=== PATIENT | male | born 1935 | race Caucasian/White ===

== ENCOUNTER 2016-07-14 07:49 | Inpatient (IN) | payer OTHER ==
[~2016-07-14] VITALS: Ht 165.1 cm; Wt 98.1 kg
[~2016-07-14 07:49] MED LIST: ATOR20TA58 PO; CELE200C PO; LISI1TAB7 PO; METO100T2 PO; OMEP20CA9 PO
[2016-07-14] MEDS ORDERED: IV NORMAL SALINE 1000ML BAG 2,790 ML IV SCH (07:58)
[2016-07-14] MEDS ORDERED: PIP/TAZO PER PHARMACY MC PRN (08:00)
[2016-07-14] MEDS ORDERED: LEVOFLOXACIN PER PHARMACY MC PRN ×2 (08:00→13:30)
[2016-07-14] MEDS ORDERED: VANCOMYCIN PER PHARMACY MC PRN (08:00)
[2016-07-14] MEDS: IV NORMAL SALINE 1000ML BAG 1,000 ML IV SCH (08:23)
[2016-07-14 08:24] LABS: BASO # 0.1 x10^3/uL (0.0-0.2); BASO % 1 % (0-3); EOS % 0 % (0-3); HEMATOCRIT 27.8 % (39.0-53.0); HEMOGLOBIN 8.7 g/dL (13.0-17.5); LYMPH # 0.7 x10^3/uL (1.0-4.8); LYMPH % 8 % (24-48); MEAN CORPUSCULAR HEMOGLOBIN 29 pg (25-35); MEAN CORPUSCULAR HGB CONC 31 g/dL (31-37); MEAN CORPUSCULAR VOLUME 93 fL (79-100); MONO % 6 % (0-9); NEUT % 85 % (31-73); PLATELET COUNT 228 x10^3/uL (140-400); RED BLOOD COUNT 2.98 x10^6/uL (4.30-5.70); RED CELL DISTRIBUTION WIDTH 15.5 % (11.5-14.5); WHITE BLOOD COUNT 8.5 x10^3/uL (4.0-11.0)
[2016-07-14] MEDS ORDERED: PIPERACILLIN/TAZOBACTAM 4.5 GM in IV NORMAL SALINE 100ML 100 ML IV ONE (08:30)
[2016-07-14 08:34] LABS: INR 1.3 (0.8-1.1); PROTHROMBIN TIME PATIENT 15.4 SEC (11.7-14.0)
[2016-07-14 08:40] LABS: CALCIUM 8.2 mg/dL (8.5-10.1); CREATININE 1.1 mg/dL (0.7-1.3); GFR 64.2; POTASSIUM 4.3 mmol/L (3.5-5.1)
--- NOTE | 2016-07-14 08:44 | RAD ---
Indication: Respiratory distress. Time of exam 0829 hours. Comparison is made with prior chest from 06/12/2016. The heart is enlarged. There appears to be a developing infiltrate in the left base and pleural fluid when compared with exam from 06/12/2016. The right lung is clear. There is no pneumothorax. Impression: Cardiomegaly with development of left basilar infiltrate and pleural fluid.
[2016-07-14 08:46] LABS: ALBUMIN 2.6 g/dL (3.4-5.0); ALBUMIN/GLOBULIN RATIO 0.6 (1.0-1.7); TOTAL BILIRUBIN 0.6 mg/dL (0.2-1.0); TOTAL PROTEIN 6.8 g/dL (6.4-8.2)
--- NOTE | 2016-07-14 08:52 | PHYS DOC ---
Past Medical History Past Medical History: Anemia, Arthritis, CHF, GERD, High Cholesterol, Hypertension, Pneumonia, Other Additional Past Medical Histor: spondylosis Past Surgical History: Other Additional Past Surgical Histo: back sx Alcohol Use: None Drug Use: None Adult General Chief Complaint Chief Complaint: SHORTNESS OF BREATH HPI HPI Patient is a 80 year old male who presents with complaint of shortness of breath. Patient was brought by ambulance from the [facility] due to respiratory distress. The patient was diagnosed 3 days ago with left lower lobe pneumonia by chest x-ray. Despite treatment, the patient has been progressively getting worse. The patient was found to have low oxygen saturation in the mid 80s on 5 L nasal cannula prior to arrival and was brought for further evaluation. Patient is to shortness breath and cough but denies chest pain. Patient has history of CHF and hypertension. Patient was noted to have fever of 102F. Patient appears in obvious respiratory distress. Review of Systems Review of Systems Constitutional: Fever [] Eyes: Denies change in visual acuity, redness, or eye pain [] HENT: Denies nasal congestion or sore throat [] Respiratory: Cough, shortness of breath [] Cardiovascular: Denies chest pain [] GI: Denies abdominal pain, nausea, vomiting, bloody stools or diarrhea [] : Denies dysuria or hematuria [] Musculoskeletal: Denies back pain or joint pain [] Integument: Denies rash or skin lesions [] Neurologic: Denies headache, focal weakness or sensory changes [] Current Medications Current Medications Current Medications Medications (Trade) Dose Ordered Sig/Miranda Start Time Stop Time Status Last Admin Dose Admin Levofloxacin/ Dextrose 150 ml @ 100 mls/hr 1X ONCE 07/14/16 08:30 07/14/16 09:59 Levofloxacin/ Dextrose 1 each 1 each PRN DAILY PRN 07/14/16 08:00 UNV Piperacillin Sod/ Tazobactam Sod (Zosyn Per Pharmacy) 1 each PRN DAILY PRN 07/14/16 08:00 UNV Piperacillin Sod/ Tazobactam Sod/ Sodium Chloride (Zosyn/Iv Sodium Chloride 0.9% 100ml) 100 ml @ 200 mls/hr 1X ONCE 07/14/16 08:30 07/14/16 08:59 DC 07/14/16 08:23 200 MLS/HR Sodium Chloride 1,000 ml @ 697.5 mls/ hr Q1H27M 07/14/16 08:03 07/14/16 11:58 07/14/16 08:23 697.5 MLS/HR Sodium Chloride (Iv Sodium Chloride 0.9% 1000ml Bag) 2,790 ml @ 697.5 mls/ hr Q4H 07/14/16 07:58 07/14/16 08:03 DC Vancomycin HCl (Vanco Per Pharmacy) 1 each 1X ONCE 07/14/16 08:00 07/14/16 08:01 UNV Vancomycin HCl 2 gm/Sodium Chloride 500 ml @ 250 mls/hr 1X ONCE 07/14/16 09:00 07/14/16 10:59 07/14/16 08:24 250 MLS/HR Allergies Allergies Allergies Coded Allergies Type Severity Reaction Last Updated Verified No Known Drug Allergies 06/16/16 No Physical Exam Physical Exam Constitutional: Alert, febrile, appears in moderate respiratory distress. [] HENT: Normocephalic, atraumatic, bilateral external ears normal, oropharynx moist, no oral exudates, nose normal. [] Eyes: PERRLA, EOMI, conjunctiva normal, no discharge. [] Neck: Normal range of motion, no tenderness, supple, no stridor. [] Cardiovascular:Heart rate regular rhythm, no murmur [] Lungs & Thorax: Severely restricted air movement bilaterally, expiratory wheezes bilaterally, rales in left lower lobe, prolonged expiratory phase [] Abdomen: Bowel sounds normal, soft, no tenderness, no masses, no pulsatile masses. [] Skin: Warm, dry, no erythema, no rash. [] Back: No tenderness, no CVA tenderness. [] Extremities: No tenderness, no cyanosis, no clubbing, ROM intact, trace pedal edema bilaterally. [] Neurologic: Alert and oriented X 3, normal motor function, normal sensory function, no focal deficits noted. [] Current Patient Data Vital Signs Vital Signs Date Time Temp Pulse Resp B/P Pulse Ox O2 Delivery O2 Flow Rate FiO2 07/14/16 08:09 95 BiPAP/CPAP 07/14/16 07:49 102.6 105 32 156/78 102.6 Lab Values Laboratory Tests Test 07/14/16 08:09 White Blood Count 8.5x10^3/uL (4.0-11.0) Red Blood Count 2.98x10^6/uL (4.30-5.70) L Hemoglobin 8.7g/dL (13.0-17.5) L Hematocrit 27.8% (39.0-53.0) L Mean Corpuscular Volume 93fL (79-100) Mean Corpuscular Hemoglobin 29pg (25-35) Mean Corpuscular Hemoglobin Concent 31g/dL (31-37) Red Cell Distribution Width 15.5% (11.5-14.5) H Platelet Count 228x10^3/uL (140-400) Neutrophils (%) (Auto) 85% (31-73) H Lymphocytes (%) (Auto) 8% (24-48) L Monocytes (%) (Auto) 6% (0-9) Eosinophils (%) (Auto) 0% (0-3) Basophils (%) (Auto) 1% (0-3) Neutrophils # (Auto) 7.2x10^3uL (1.8-7.7) Lymphocytes # (Auto) 0.7x10^3/uL (1.0-4.8) L Monocytes # (Auto) 0.5x10^3/uL (0.0-1.1) Eosinophils # (Auto) 0.0x10^3/uL (0.0-0.7) Basophils # (Auto) 0.1x10^3/uL (0.0-0.2) Prothrombin Time 15.4SEC (11.7-14.0) H Prothrombin Time INR 1.3 (0.8-1.1) H PTT 30SEC (24-38) Sodium Level 143mmol/L (136-145) Potassium Level 4.3mmol/L (3.5-5.1) Chloride Level 105mmol/L (98-107) Carbon Dioxide Level 37mmol/L (21-32) H Anion Gap 1 (6-14) L Blood Urea Nitrogen 10mg/dL (8-26) Creatinine 1.1mg/dL (0.7-1.3) Estimated GFR (Cockcroft-Gault) 64.2 BUN/Creatinine Ratio 9 (6-20) Glucose Level 140mg/dL (70-99) H Calcium Level 8.2mg/dL (8.5-10.1) L Total Bilirubin 0.6mg/dL (0.2-1.0) Aspartate Amino Transferase (AST) 36U/L (15-37) Alanine Aminotransferase (ALT) 29U/L (16-63) Alkaline Phosphatase 146U/L (46-116) H Total Protein 6.8g/dL (6.4-8.2) Albumin 2.6g/dL (3.4-5.0) L Albumin/Globulin Ratio 0.6 (1.0-1.7) L Procalcitonin Pending Laboratory Tests 07/14/16 08:09 Laboratory Tests 07/14/16 08:09 EKG EKG Interpreted by me: Heart rate 93, sinus rhythm, left bundle branch block, right axis deviation, no acute ST/T-wave abnormalities present [] Radiology/Procedures Radiology/Procedures [address] [place] [address] IMAGING REPORT Signed PATIENT: BOBBY ROSAS ACCOUNT: [id number] : 1935 LOCATION: ER AGE: 80 SEX: M EXAM STATUS: REG ER ORD. PHYSICIAN: SAIRA SANDHU MD REASON: respiratory distress PROCEDURE: PORTABLE CHEST 1V Indication: Respiratory distress. Time of exam 0829 hours. Comparison is made with prior chest from 06/12/2016. The heart is enlarged. There appears to be a developing infiltrate in the left base and pleural fluid when compared with exam from 06/12/2016. The right lung is clear. There is no pneumothorax. Impression: Cardiomegaly with development of left basilar infiltrate and pleural fluid. DICTATED and SIGNED BY: JULIO EVANS MD DATE: 07/14/16 0841 CC: SAIRA SANDHU MD; SMITHA SHETTY Jr, MD ~ [] Course & Med Decision Making Course & Med Decision Making Pertinent Labs and Imaging studies reviewed. (See chart for details) The patient was started on BiPAP in the emergency department. Patient found to have acute on chronic respiratory failure with hypoxia and hypercapnia. Patient' s chest x-ray consistent with worsening left lower lobe pneumonia. Patient started on IV Levaquin, vancomycin, and Zosyn for treatment of healthcare associated pneumonia. Patient is CODE STATUS DNR. The patient will be admitted for further management. I spoke with Dr. Mancini who accepted care patient in hospital. A consult was placed to Dr. Brothers of pulmonology to follow patient in hospital. Critical care time excluding procedures: 45 minutes Dragon Disclaimer Dragon Disclaimer This electronic medical record was generated, in whole or in part, using a voice recognition dictation system. Departure Departure Impression: Primary Impression: Acute on chronic respiratory failure Additional Impressions: Healthcare-associated pneumonia Sepsis Congestive heart failure Normocytic anemia Severe protein-calorie malnutrition Disposition: ADMITTED INPATIENT Admitting Physician: Jair Mancini Condition: GUARDED Referrals: SMITHA SHETTY Jr, MD (PCP) Problem Qualifiers Primary Impression: Acute on chronic respiratory failure Respiratory failure complication: hypoxia Qualified Code: J96.21 - Acute and chronic respiratory failure with hypoxia Additional Impressions: Sepsis Sepsis type: sepsis due to unspecified organism Qualified Code: A41.9 - Sepsis, unspecified organism Congestive heart failure Congestive heart failure type: unspecified congestive heart failure type Congestive heart failure chronicity: unspecified congestive heart failure chronicity Qualified Code: I50.9 - Heart failure, unspecified SAIRA SANDHU MD Jul 14, 2016 08:52
[2016-07-14] MEDS ORDERED: VANCOMYCIN 2 GM in IV NORMAL SALINE 500ML BAG 500 ML IV ONE (09:00)
[2016-07-14 09:10] LABS: HCO3 ABG 36 mmol/L (21-28); PO2 ABG 62 mmHg (65-108); SAT O2 ABG 89 % (92-99)
[2016-07-14] MEDS ORDERED: IV NORMAL SALINE 1000ML BAG 1,000 ML IV SCH (09:11)
[2016-07-14] MEDS ORDERED: ONDANSETRON PF 4 MG/2 ML VIAL. IV PRN ×2 (09:15→13:30)
[2016-07-14] MEDS ORDERED: ACETAMINOPHEN 325 MG TABLET. PO PRN ×2 (09:15→13:30)
[2016-07-14 09:19] LABS: FIO2 ABG 40; PCO2 ABG 82 mmHg (35-46); PH ABG 7.26 (7.35-7.45)
[2016-07-14 09:26] LABS: CKMB INDEX 1.9 % (0-4); CKMB MASS 1.4 ng/mL (0.0-3.6)
[2016-07-14 09:39] LABS: OBC FLU VALID
--- NOTE | 2016-07-14 09:50 | EKG ---
[facility] [address] [place] [address] Test Date: 2016-07-14 Test Time: 08:54:16 Pat Name: BOBBY ROSAS Department: Room: [facility] Gender: M Plexiglas Former: : 1935 Requested By: SAIRA SANDHU Order Number: [id number] Reading MD: Skip Doran Measurements Intervals [place] Rate: 93 P: -121 AK: 122 QRS: -140 QRSD: 124 T: 65 QT: 364 QTc: 455 Interpretive Statements SINUS RHYTHM LEFT BUNDLE BRANCH BLOCK Electronically Signed On 07-14-2016 15:00:24 EPIDEMIOLOGY INTERNSHIP by Skip Doran
[2016-07-14 10:29] LABS: PROCALCITONIN 0.18 ng/mL (0.00-0.10)
[2016-07-14 10:30] VITALS: BP 151/72
--- NOTE | 2016-07-14 11:24 | PDOC ---
Provider Note Provider Note dictated LATRELL PORTILLO MD Jul 14, 2016 11:24
[2016-07-14] MEDS: IPRATRPIUM/ALBUTEROL 0.5/2.5MG 3 ML NEBU. NEB SCH ×3 (11:28→20:16)
[2016-07-14] MEDS: ENOXAPARIN 40 MG/0.4 ML DISP.SYRIN. SQ SCH (11:58)
[2016-07-14 12:10] LABS: HCO3 ABG 32 mmol/L (21-28); PO2 ABG 77 mmHg (65-108); SAT O2 ABG 94 % (92-99)
[2016-07-14 12:11] LABS: FIO2 ABG 50; PCO2 ABG 67 mmHg (35-46)
--- NOTE | 2016-07-14 12:54 | PDOC1 ---
History and Physical Past Medical History Cardiovascular: HTN, Hyperlipidemia Pulmonary: No pertinent hx CENTRAL NERVOUS SYSTEM: Other GI: GERD Heme/Onc: No pertinent hx Hepatobiliary: No pertinent hx Psych: No pertinent hx Rheumatologic: No pertinent hx Infectious disease: No pertinent hx Renal/: Chronic renal failure, Other Endocrine: No pertinent hx Past Surgical History Past Surgical History: Hernia Repair, Tonsillectomy, Other Family History Family History: Other (?htn) Social History Smoke: No ALCOHOL: none Drugs: None Current Problem List Problem List Problems Medical Problems: (1) Acute on chronic respiratory failure Status: Acute (2) Congestive heart failure Status: Acute (3) Healthcare-associated pneumonia Status: Acute (4) Normocytic anemia Status: Acute (5) Sepsis Status: Acute (6) Severe protein-calorie malnutrition Status: Acute Current Medications Current Medications Current Medications Medications (Trade) Dose Ordered Sig/Miranda Start Time Stop Time Status Last Admin Dose Admin Acetaminophen (Tylenol) 650 mg PRN Q4HRS PRN 07/14/16 09:15 07/15/16 09:14 Albuterol/ Ipratropium 3 ml 3 ml RTQID 07/14/16 12:00 07/15/16 11:59 07/14/16 11:28 3 ML Enoxaparin Sodium (Lovenox 40mg Syringe) 40 mg Q24H 07/14/16 12:00 07/14/16 11:58 40 MG Levofloxacin/ Dextrose (LEVAQUIN 750mg PREMIX) 150 ml @ 100 mls/hr Q24H 07/15/16 10:00 Levofloxacin/ Dextrose 1 each 1 each PRN DAILY PRN 07/14/16 08:00 Ondansetron HCl 4 mg 4 mg PRN Q8HRS PRN 07/14/16 09:15 07/15/16 09:14 Piperacillin Sod/ Tazobactam Sod (Zosyn Per Pharmacy) 1 each PRN DAILY PRN 07/14/16 08:00 Piperacillin Sod/ Tazobactam Sod 4.5 gm/Sodium Chloride 100 ml @ 200 mls/hr 1X ONCE 07/14/16 08:30 07/14/16 08:59 DC 07/14/16 08:23 200 MLS/HR Piperacillin Sod/ Tazobactam Sod/ Sodium Chloride (Zosyn/Iv Sodium Chloride 0.9% 100ml) 100 ml @ 200 mls/hr Q6HRS 07/14/16 18:00 Sodium Chloride (Iv Sodium Chloride 0.9% 1000ml Bag) 1,000 ml @ 75 mls/hr [id number] 07/14/16 09:11 07/15/16 09:10 07/14/16 11:55 75 MLS/HR Vancomycin HCl (Vanco Per Pharmacy) 1 each PRN DAILY PRN 07/14/16 08:00 07/14/16 09:16 1 EACH Vancomycin HCl 1 each 1 each 1X ONCE 07/16/16 08:00 07/16/16 08:01 Vancomycin HCl 2 gm/Sodium Chloride 500 ml @ 250 mls/hr 1X ONCE 07/14/16 09:00 07/14/16 10:59 DC 07/14/16 08:24 250 MLS/HR Vancomycin HCl/ Sodium Chloride (Iv Sodium Chloride 0.9% 250ml) 250 ml @ 167 mls/hr Q24H 07/15/16 08:30 Allergies Allergies Allergies Coded Allergies Type Severity Reaction Last Updated Verified No Known Drug Allergies 06/16/16 No ROS Review of System CONSTITUTIONAL: fever EYES: No recent changes SKIN: bruises CARDIOVASCULAR: No chest pain, syncope, palpitations, or edema RESPIRATORY: No SOB or cough GASTROINTESTINAL: No nausea, vomiting or abdominal pain NEUROLOGICAL: No headaches or weakness ENDOCRINE: No cold or heat intolerance GENITOURINARY: No urgency or frequency of urination MUSCULOSKELETAL: No back pain or joint pain LYMPHATICS: No enlarged lymph nodes PSYCHIATRIC: No anxiety or depression Physical Exam Physical Exam GEN.: apparent distress. Alert and oriented. on BIPAP HEENT: Head is normocephalic, atraumatic NECK: Supple. NO JVD LUNGS: Clear to auscultation. clear HEART: RRR, S1, S2 present. Peripheral pulses intact ABDOMEN: Soft, nontender. Positive bowel sounds. EXTREMITIES: edema and chronic dermatis. NEUROLOGIC: Normal speech, normal tone PSYCHIATRIC: Normal affect, normal mood. SKIN: rash on back, skin breakdowns, and bruise(see chart. ) Vitals Vitals Vital Signs Date Time Temp Pulse Resp B/P Pulse Ox O2 Delivery O2 Flow Rate FiO2 07/14/16 12:51 99 BiPAP/CPAP 07/14/16 09:30 101.9 94 22 134/65 101.9 Labs Labs Laboratory Tests Test 07/14/16 08:09 07/14/16 08:31 07/14/16 08:59 07/14/16 10:30 White Blood Count 8.5x10^3/uL (4.0-11.0) Red Blood Count 2.98x10^6/uL (4.30-5.70) Hemoglobin 8.7g/dL (13.0-17.5) Hematocrit 27.8% (39.0-53.0) Mean Corpuscular Volume 93fL (79-100) Mean Corpuscular Hemoglobin 29pg (25-35) Mean Corpuscular Hemoglobin Concent 31g/dL (31-37) Red Cell Distribution Width 15.5% (11.5-14.5) Platelet Count 228x10^3/uL (140-400) Neutrophils (%) (Auto) 85% (31-73) Lymphocytes (%) (Auto) 8% (24-48) Monocytes (%) (Auto) 6% (0-9) Eosinophils (%) (Auto) 0% (0-3) Basophils (%) (Auto) 1% (0-3) Neutrophils # (Auto) 7.2x10^3uL (1.8-7.7) Lymphocytes # (Auto) 0.7x10^3/uL (1.0-4.8) Monocytes # (Auto) 0.5x10^3/uL (0.0-1.1) Eosinophils # (Auto) 0.0x10^3/uL (0.0-0.7) Basophils # (Auto) 0.1x10^3/uL (0.0-0.2) Prothrombin Time 15.4SEC (11.7-14.0) Prothromb Time International Ratio 1.3 (0.8-1.1) Activated Partial Thromboplast Time 30SEC (24-38) Sodium Level 143mmol/L (136-145) Potassium Level 4.3mmol/L (3.5-5.1) Chloride Level 105mmol/L (98-107) Carbon Dioxide Level 37mmol/L (21-32) Anion Gap 1 (6-14) Blood Urea Nitrogen 10mg/dL (8-26) Creatinine 1.1mg/dL (0.7-1.3) Estimated GFR (Cockcroft-Gault) 64.2 BUN/Creatinine Ratio 9 (6-20) Glucose Level 140mg/dL (70-99) Lactic Acid Level 1.0mmol/L (0.4-2.0) 1.0mmol/L (0.4-2.0) Calcium Level 8.2mg/dL (8.5-10.1) Total Bilirubin 0.6mg/dL (0.2-1.0) Aspartate Amino Transf (AST/SGOT) 36U/L (15-37) Alanine Aminotransferase (ALT/SGPT) 29U/L (16-63) Alkaline Phosphatase 146U/L (46-116) Creatine Kinase 75U/L (39-308) Creatine Kinase MB (Mass) 1.4ng/mL (0.0-3.6) Creatine Kinase MB Relative Index 1.9% (0-4) Total Protein 6.8g/dL (6.4-8.2) Albumin 2.6g/dL (3.4-5.0) Albumin/Globulin Ratio 0.6 (1.0-1.7) Procalcitonin 0.18ng/mL (0.00-0.10) Influenza Type A Antigen Negative (NEGATIVE) Influenza Type B Antigen Negative (NEGATIVE) O2 Saturation 89% (92-99) Arterial Blood pH 7.26 (7.35-7.45) Arterial Blood pCO2 at Patient Temp 82mmHg (35-46) Arterial Blood pO2 at Patient Temp 62mmHg (65-108) Arterial Blood HCO3 36mmol/L (21-28) Arterial Blood Base Excess 7mmol/L (-3-3) FiO2 40 Test 07/14/16 12:00 O2 Saturation 94% (92-99) Arterial Blood pH 7.30 (7.35-7.45) Arterial Blood pCO2 at Patient Temp 67mmHg (35-46) Arterial Blood pO2 at Patient Temp 77mmHg (65-108) Arterial Blood HCO3 32mmol/L (21-28) Arterial Blood Base Excess 5mmol/L (-3-3) FiO2 50 Laboratory Tests Test 07/14/16 08:09 07/14/16 08:31 07/14/16 08:59 07/14/16 10:30 White Blood Count 8.5x10^3/uL (4.0-11.0) Red Blood Count 2.98x10^6/uL (4.30-5.70) Hemoglobin 8.7g/dL (13.0-17.5) Hematocrit 27.8% (39.0-53.0) Mean Corpuscular Volume 93fL (79-100) Mean Corpuscular Hemoglobin 29pg (25-35) Mean Corpuscular Hemoglobin Concent 31g/dL (31-37) Red Cell Distribution Width 15.5% (11.5-14.5) Platelet Count 228x10^3/uL (140-400) Neutrophils (%) (Auto) 85% (31-73) Lymphocytes (%) (Auto) 8% (24-48) Monocytes (%) (Auto) 6% (0-9) Eosinophils (%) (Auto) 0% (0-3) Basophils (%) (Auto) 1% (0-3) Neutrophils # (Auto) 7.2x10^3uL (1.8-7.7) Lymphocytes # (Auto) 0.7x10^3/uL (1.0-4.8) Monocytes # (Auto) 0.5x10^3/uL (0.0-1.1) Eosinophils # (Auto) 0.0x10^3/uL (0.0-0.7) Basophils # (Auto) 0.1x10^3/uL (0.0-0.2) Prothrombin Time 15.4SEC (11.7-14.0) Prothromb Time International Ratio 1.3 (0.8-1.1) Activated Partial Thromboplast Time 30SEC (24-38) Sodium Level 143mmol/L (136-145) Potassium Level 4.3mmol/L (3.5-5.1) Chloride Level 105mmol/L (98-107) Carbon Dioxide Level 37mmol/L (21-32) Anion Gap 1 (6-14) Blood Urea Nitrogen 10mg/dL (8-26) Creatinine 1.1mg/dL (0.7-1.3) Estimated GFR (Cockcroft-Gault) 64.2 BUN/Creatinine Ratio 9 (6-20) Glucose Level 140mg/dL (70-99) Lactic Acid Level 1.0mmol/L (0.4-2.0) 1.0mmol/L (0.4-2.0) Calcium Level 8.2mg/dL (8.5-10.1) Total Bilirubin 0.6mg/dL (0.2-1.0) Aspartate Amino Transf (AST/SGOT) 36U/L (15-37) Alanine Aminotransferase (ALT/SGPT) 29U/L (16-63) Alkaline Phosphatase 146U/L (46-116) Creatine Kinase 75U/L (39-308) Creatine Kinase MB (Mass) 1.4ng/mL (0.0-3.6) Creatine Kinase MB Relative Index 1.9% (0-4) Total Protein 6.8g/dL (6.4-8.2) Albumin 2.6g/dL (3.4-5.0) Albumin/Globulin Ratio 0.6 (1.0-1.7) Procalcitonin 0.18ng/mL (0.00-0.10) Influenza Type A Antigen Negative (NEGATIVE) Influenza Type B Antigen Negative (NEGATIVE) O2 Saturation 89% (92-99) Arterial Blood pH 7.26 (7.35-7.45) Arterial Blood pCO2 at Patient Temp 82mmHg (35-46) Arterial Blood pO2 at Patient Temp 62mmHg (65-108) Arterial Blood HCO3 36mmol/L (21-28) Arterial Blood Base Excess 7mmol/L (-3-3) FiO2 40 Test 07/14/16 12:00 O2 Saturation 94% (92-99) Arterial Blood pH 7.30 (7.35-7.45) Arterial Blood pCO2 at Patient Temp 67mmHg (35-46) Arterial Blood pO2 at Patient Temp 77mmHg (65-108) Arterial Blood HCO3 32mmol/L (21-28) Arterial Blood Base Excess 5mmol/L (-3-3) FiO2 50 VTE Prophylaxis Ordered VTE Prophylaxis Devices: Yes VTE Pharmacological Prophylaxi: Yes SANDY RAYA MD Jul 14, 2016 12:53
[2016-07-14] MEDS ORDERED: PIPERACILLIN/TAZOBACTAM 3.375 GM in IV NORMAL SALINE 50ML 50 ML IV SCH (13:30)
[2016-07-14] MEDS ORDERED: hydrALAZINE 20 MG/ML VIAL. IVP PRN (13:30)
[2016-07-14] MEDS ORDERED: HYDROCODONE/APAP 5/325MG TABLET. PO PRN (13:30)
--- NOTE | 2016-07-14 13:43 | CONS ---
DATE OF CONSULTATION: ATTENDING PHYSICIAN: Dr. Mancini. REASON FOR CONSULTATION: Respiratory failure. HISTORY OF PRESENT ILLNESS: The patient is an 80-year-old male who was brought in from [facility] due to respiratory distress. The patient was at that facility after recovering from the right hip surgery. He started to have cough with shortness of breath. Cough has been present for about more than a week. He was found to have low oxygen saturations in the mid 80s on 5 liters nasal cannula. He had a fever of 102. I reviewed the patient's chest x-ray and it revealed left lung infiltrate with effusion. This was a new finding compared to his films from May. His ABGs were abnormal with a pH of 7.26, pCO2 of 82 and a pO2 of 62 on 40% FiO2. He has been placed on BiPAP. He is tolerating it well and appears to be very comfortable. Influenza serology is negative. The daughter is at the bedside and gave much of the history. No headaches. No nausea, vomiting or diarrhea. PAST MEDICAL HISTORY: History of anemia, arthritis, CHF, GERD, dyslipidemia, hypertension, pneumonia and spondylolysis. PAST SURGICAL HISTORY: Back surgeries. ALLERGIES: None. CURRENT MEDICATIONS: Reviewed as listed in the MRAD including broad-spectrum antibiotics. REVIEW OF SYSTEMS: Twelve-point system obtained. Pertinent positives discussed in my history of present illness, otherwise noncontributory. All systems that were negative were reviewed as well. SOCIAL HISTORY: Quit 30 years ago, smoked probably for 25-30 years. PHYSICAL EXAMINATION: GENERAL: He is awake, on BiPAP, no obvious distress. VITAL SIGNS: T-max of 101.9, blood pressure 134/65, pulse ox 96% on 40% FiO2 with BiPAP. HEENT: Sclerae nonicteric. NECK: Supple. LUNGS: With diminished breath sounds on the left. CARDIOVASCULAR: Regular rate. ABDOMEN: Obese. EXTREMITIES: With venous stasis in the right lower extremity. LABORATORY DATA: Reviewed. White cell count 8.5, hemoglobin 8.7, BUN 10, creatinine 1.1. IMPRESSION: 1. Acute hypoxic and hypercapnic respiratory failure secondary to healthcare-associated pneumonia involving the left lung. 2. Possible underlying chronic obstructive pulmonary disease. 3. Recent hip surgery. 4. Influenza screen negative. 5. Abnormal arterial blood gases consistent with [id number] hypercapnia. RECOMMENDATIONS: 1. Continue with present BiPAP. 2. Follow ABGs and make necessary adjustments. 3. We will continue broad-spectrum antibiotics. 4. Follow blood cultures. 5. Noncontrast CT chest once off the BiPAP. 6. Continue with DuoNebs. 7. Lovenox for DVT prophylaxis. 8. Discussed with the patient's daughter and RN. We will follow along with you. LATRELL PORTILLO MD DR: KUMAR/alma JOB#: [id number] / [id number] MARY
[2016-07-14] MEDS ORDERED: ENOXAPARIN 40 MG/0.4 ML DISP.SYRIN. SQ SCH (14:00)
[2016-07-14] MEDS: CELECOXIB 200 MG CAPSULE PO SCH (14:00)
[2016-07-14] MEDS: LISINOPRIL 20 MG TABLET PO SCH (14:00)
[2016-07-14 15:04] VITALS: BP 118/57
--- NOTE | 2016-07-14 15:13 | HP ---
ADMIT DATE: 07/14/2016 CHIEF COMPLAINT: Shortness of breath. HISTORY OF PRESENT ILLNESS: An 80-year-old male patient with recent history of right hip arthroplasty. Later, the patient was transferred to rehab facility, [facility]. Today, the patient was transferred to the hospital for fever and shortness of breath. Recently he was diagnosed with left lower lobe pneumonia and he was started on treatment; however, he did not show any improvement and the patient was transferred here. At the time of presentation, the patient was in mid 80s and requiring 5-6 liters of oxygen. Initial ABG showed hypercapnic and hypoxic respiratory failure. At the time of my examination, the patient is on BiPAP with daughter at bedside. Most of the history obtained from the daughter. He is having some fevers and dry cough. Denies any other acute changes. PAST MEDICAL HISTORY: Please see my electronic H and P. REVIEW OF SYSTEMS AND PHYSICAL EXAMINATION: Please see my electronic H and P. LABORATORY FINDINGS: Sodium is 143, potassium 4.3, chloride is 105, carbon dioxide is , anion gap is 1, BUN is 10, creatinine is 1.1, GFR is 64.2, BUN and creatinine ratio 9 and lactic acid 1, calcium is 8.2. Procalcitonin 0.18. Influenzae A and B negative. Hematology: WBC is 8.5, hemoglobin is 8.7, MCV is 93, platelets is 228. Blood gases, pH is 7.26, pCO2 is 82, pO2 is 62, FiO2 40%. ASSESSMENT AND PLAN: 1. Acute hypoxic, hypercapnic respiratory failure. 2. Healthcare associated pneumonia. 3. Suspected sepsis. 4. Normocytic anemia. 5. Anemia. 6. Recent hip replacement. 7. Hypertension. 8. Prior history of questionable atrial fibrillation. 9. Severe arthritis. PLAN: 1. The patient has been admitted to step down unit and he was started on BiPAP. Repeat ABG showed improvement. Pulmonology has been consulted. 2. He was initiated on broad spectrum antibiotics of vancomycin, Zosyn and Levaquin, pharmacy to dose the Levaquin and vancomycin according to renal functions. 3. The patient had skin changes due to warfarin in the past. We will start him on the Lovenox for now. 4. Monitor intake and output. 5. If the patient's symptoms did not get better, maybe we will order an echocardiogram. 6. Home medications reviewed and reconciled. 7. Supportive care. 8. Supplemental oxygen to keep saturations around 92%. 10. Plan has been explained to daughter who is at bedside. SANDY RAYA MD DR: AVINASH/alma JOB#: [id number] / [id number] MARY
[2016-07-14 15:52] LABS: HCO3 ABG 30 mmol/L (21-28); PCO2 ABG 50 mmHg (35-46); PH ABG 7.39 (7.35-7.45); PO2 ABG 87 mmHg (65-108); SAT O2 ABG 96 % (92-99)
[2016-07-14 15:53] LABS: FIO2 ABG 45
[2016-07-14] MEDS: PANTOPRAZOLE 40 MG TABLET. PO SCH (16:30)
[2016-07-14] MEDS: PIPERACILLIN/TAZOBACTAM 4.5 GM in IV NORMAL SALINE 100ML 100 ML IV SCH ×2 (18:48→23:24)
[2016-07-14 19:48] VITALS: BP 113/61
[2016-07-14] MEDS: METOPROLOL TART IMMED RELEASE 50 MG TABLET PO SCH (21:13)
[2016-07-14] MEDS: ATORVASTATIN CALCIUM 20 MG TABLET PO SCH (21:13)
[2016-07-14 22:53] VITALS: BP 119/62
[2016-07-15] VITALS (18 sets, daily range): BP systolic 92–163; BP diastolic 54–75
[2016-07-15] MEDS: IV NORMAL SALINE 1000ML BAG 1,000 ML IV SCH ×4 (02:50→22:00)
[2016-07-15] MEDS: PIPERACILLIN/TAZOBACTAM 4.5 GM in IV NORMAL SALINE 100ML 100 ML IV SCH ×3 (05:42→18:13)
[2016-07-15 05:44] LABS: BASO % 0 % (0-3); EOS % 0 % (0-3); HEMOGLOBIN 8.4 g/dL (13.0-17.5); LYMPH # 1.6 x10^3/uL (1.0-4.8); LYMPH % 18 % (24-48); MEAN CORPUSCULAR HEMOGLOBIN 29 pg (25-35); MEAN CORPUSCULAR HGB CONC 31 g/dL (31-37); MEAN CORPUSCULAR VOLUME 94 fL (79-100); MONO % 11 % (0-9); NEUT % 71 % (31-73); PLATELET COUNT 214 x10^3/uL (140-400); RED BLOOD COUNT 2.87 x10^6/uL (4.30-5.70); RED CELL DISTRIBUTION WIDTH 16.3 % (11.5-14.5); WHITE BLOOD COUNT 8.8 x10^3/uL (4.0-11.0)
[2016-07-15 05:54] LABS: CALCIUM 8.2 mg/dL (8.5-10.1); CREATININE 1.5 mg/dL (0.7-1.3); GFR 44.9; POTASSIUM 4.7 mmol/L (3.5-5.1)
[2016-07-15] MEDS: IPRATRPIUM/ALBUTEROL 0.5/2.5MG 3 ML NEBU. NEB SCH ×2 (05:54→11:13)
--- NOTE | 2016-07-15 07:40 | RAD ---
Indication: Left lung pneumonia. Time of exam 0727 hours. Comparison is made with prior chest from one day earlier. The heart is enlarged. There continues to be some increased density in the left base partially obscuring the left hemidiaphragm. Central congestive changes are similar to perhaps slightly worse on today's study. Upper lung gonzalez are clear. There is no pneumothorax Impression: Worsening congestive changes with continued left basilar consolidation and pleural fluid.
[2016-07-15] MEDS: VANCOMYCIN PER PHARMACY MC PRN (07:50)
[2016-07-15] MEDS: LISINOPRIL 20 MG TABLET PO SCH (08:10)
[2016-07-15] MEDS: CELECOXIB 200 MG CAPSULE PO SCH (08:10)
[2016-07-15] MEDS: PANTOPRAZOLE 40 MG TABLET. PO SCH (08:10)
[2016-07-15] MEDS: METOPROLOL TART IMMED RELEASE 50 MG TABLET PO SCH ×2 (08:10→22:00)
[2016-07-15] MEDS: VANCOMYCIN 1.25 GM in IV NORMAL SALINE 250ML 250 ML IV SCH (08:11)
[2016-07-15] MEDS: ALBUTEROL SULFATE 2.5 MG/3 ML NEBU. NEB PRN ×3 (09:15→19:26)
[2016-07-15 09:32] LABS: HCO3 ABG 32 mmol/L (21-28); PH ABG 7.25 (7.35-7.45); PO2 ABG 71 mmHg (65-108); SAT O2 ABG 93 % (92-99)
[2016-07-15 09:35] LABS: FIO2 ABG 40%; PCO2 ABG 75 mmHg (35-46)
--- NOTE | 2016-07-15 10:17 | RAD ---
Indication: Respiratory distress. Axial imaging through the chest was performed without contrast. Comparison is made with recent chest radiograph from earlier the same day. No axillary lymphadenopathy is detected. Hilar and mediastinal evaluation is limited without intravenous contrast. No pericardial effusion is identified. There are moderate-sized bilateral pleural effusions, slightly larger on the left. Pleural fluid on the right layers dependently to a thickness of approximately 5 cm. Pleural fluid on the left layers to a thickness of approximately 8.5 cm. Parenchymal evaluation does show some mild atelectasis or infiltrate in the posterior aspect of the left upper lobe. There are areas of airspace consolidation and air bronchograms within bilateral lower lobes. Perihilar infiltrate is seen. The upper abdomen is unremarkable. Impression: Moderate bilateral pleural effusions and bilateral pulmonary infiltrates suggestive of pneumonia. PQRS Compliance Statement: One or more of the following individualized dose reduction techniques were utilized for this examination: 1. Automated exposure control 2. Adjustment of the mA and/or kV according to patient size 3. Use of iterative reconstruction technique
--- NOTE | 2016-07-15 10:33 | PDOC ---
PULMONARY PROGRESS NOTES Subjective Pt did not wear BIPAP last night Had hypoxia/ increase PCO2 back on BIPAP Vitals Vital Signs Date Time Temp Pulse Resp B/P Pulse Ox O2 Delivery O2 Flow Rate FiO2 07/15/16 08:10 111 163/68 07/15/16 08:00 Venturi Mask 10.0 07/15/16 07:00 28 88 07/15/16 03:59 100.0 100.0 General: Alert, No acute distress Lungs: Other (decrease bs) Abdomen: Soft Neuro Exam: Alert Extremities: Other (trace edema) Labs Laboratory Tests Test 07/14/16 08:09 07/14/16 08:31 07/14/16 08:59 07/14/16 10:30 White Blood Count 8.5x10^3/uL (4.0-11.0) Red Blood Count 2.98x10^6/uL (4.30-5.70) Hemoglobin 8.7g/dL (13.0-17.5) Hematocrit 27.8% (39.0-53.0) Mean Corpuscular Volume 93fL (79-100) Mean Corpuscular Hemoglobin 29pg (25-35) Mean Corpuscular Hemoglobin Concent 31g/dL (31-37) Red Cell Distribution Width 15.5% (11.5-14.5) Platelet Count 228x10^3/uL (140-400) Neutrophils (%) (Auto) 85% (31-73) Lymphocytes (%) (Auto) 8% (24-48) Monocytes (%) (Auto) 6% (0-9) Eosinophils (%) (Auto) 0% (0-3) Basophils (%) (Auto) 1% (0-3) Neutrophils # (Auto) 7.2x10^3uL (1.8-7.7) Lymphocytes # (Auto) 0.7x10^3/uL (1.0-4.8) Monocytes # (Auto) 0.5x10^3/uL (0.0-1.1) Eosinophils # (Auto) 0.0x10^3/uL (0.0-0.7) Basophils # (Auto) 0.1x10^3/uL (0.0-0.2) Prothrombin Time 15.4SEC (11.7-14.0) Prothromb Time International Ratio 1.3 (0.8-1.1) Activated Partial Thromboplast Time 30SEC (24-38) Sodium Level 143mmol/L (136-145) Potassium Level 4.3mmol/L (3.5-5.1) Chloride Level 105mmol/L (98-107) Carbon Dioxide Level 37mmol/L (21-32) Anion Gap 1 (6-14) Blood Urea Nitrogen 10mg/dL (8-26) Creatinine 1.1mg/dL (0.7-1.3) Estimated GFR (Cockcroft-Gault) 64.2 BUN/Creatinine Ratio 9 (6-20) Glucose Level 140mg/dL (70-99) Lactic Acid Level 1.0mmol/L (0.4-2.0) 1.0mmol/L (0.4-2.0) Calcium Level 8.2mg/dL (8.5-10.1) Total Bilirubin 0.6mg/dL (0.2-1.0) Aspartate Amino Transf (AST/SGOT) 36U/L (15-37) Alanine Aminotransferase (ALT/SGPT) 29U/L (16-63) Alkaline Phosphatase 146U/L (46-116) Creatine Kinase 75U/L (39-308) Creatine Kinase MB (Mass) 1.4ng/mL (0.0-3.6) Creatine Kinase MB Relative Index 1.9% (0-4) Total Protein 6.8g/dL (6.4-8.2) Albumin 2.6g/dL (3.4-5.0) Albumin/Globulin Ratio 0.6 (1.0-1.7) Procalcitonin 0.18ng/mL (0.00-0.10) Influenza Type A Antigen Negative (NEGATIVE) Influenza Type B Antigen Negative (NEGATIVE) O2 Saturation 89% (92-99) Arterial Blood pH 7.26 (7.35-7.45) Arterial Blood pCO2 at Patient Temp 82mmHg (35-46) Arterial Blood pO2 at Patient Temp 62mmHg (65-108) Arterial Blood HCO3 36mmol/L (21-28) Arterial Blood Base Excess 7mmol/L (-3-3) FiO2 40 Test 07/14/16 12:00 07/14/16 15:00 07/15/16 04:30 07/15/16 09:19 O2 Saturation 94% (92-99) 96% (92-99) 93% (92-99) Arterial Blood pH 7.30 (7.35-7.45) 7.39 (7.35-7.45) 7.25 (7.35-7.45) Arterial Blood pCO2 at Patient Temp 67mmHg (35-46) 50mmHg (35-46) 75mmHg (35-46) Arterial Blood pO2 at Patient Temp 77mmHg (65-108) 87mmHg (65-108) 71mmHg (65-108) Arterial Blood HCO3 32mmol/L (21-28) 30mmol/L (21-28) 32mmol/L (21-28) Arterial Blood Base Excess 5mmol/L (-3-3) 5mmol/L (-3-3) 3mmol/L (-3-3) FiO2 50 45 40% White Blood Count 8.8x10^3/uL (4.0-11.0) Red Blood Count 2.87x10^6/uL (4.30-5.70) Hemoglobin 8.4g/dL (13.0-17.5) Hematocrit 27.0% (39.0-53.0) Mean Corpuscular Volume 94fL (79-100) Mean Corpuscular Hemoglobin 29pg (25-35) Mean Corpuscular Hemoglobin Concent 31g/dL (31-37) Red Cell Distribution Width 16.3% (11.5-14.5) Platelet Count 214x10^3/uL (140-400) Neutrophils (%) (Auto) 71% (31-73) Lymphocytes (%) (Auto) 18% (24-48) Monocytes (%) (Auto) 11% (0-9) Eosinophils (%) (Auto) 0% (0-3) Basophils (%) (Auto) 0% (0-3) Neutrophils # (Auto) 6.2x10^3uL (1.8-7.7) Lymphocytes # (Auto) 1.6x10^3/uL (1.0-4.8) Monocytes # (Auto) 0.9x10^3/uL (0.0-1.1) Eosinophils # (Auto) 0.0x10^3/uL (0.0-0.7) Basophils # (Auto) 0.0x10^3/uL (0.0-0.2) Sodium Level 146mmol/L (136-145) Potassium Level 4.7mmol/L (3.5-5.1) Chloride Level 107mmol/L (98-107) Carbon Dioxide Level 34mmol/L (21-32) Anion Gap 5 (6-14) Blood Urea Nitrogen 19mg/dL (8-26) Creatinine 1.5mg/dL (0.7-1.3) Estimated GFR (Cockcroft-Gault) 44.9 Glucose Level 134mg/dL (70-99) Calcium Level 8.2mg/dL (8.5-10.1) Laboratory Tests Test 07/14/16 10:30 07/14/16 12:00 07/14/16 15:00 07/15/16 04:30 Lactic Acid Level 1.0mmol/L (0.4-2.0) O2 Saturation 94% (92-99) 96% (92-99) Arterial Blood pH 7.30 (7.35-7.45) 7.39 (7.35-7.45) Arterial Blood pCO2 at Patient Temp 67mmHg (35-46) 50mmHg (35-46) Arterial Blood pO2 at Patient Temp 77mmHg (65-108) 87mmHg (65-108) Arterial Blood HCO3 32mmol/L (21-28) 30mmol/L (21-28) Arterial Blood Base Excess 5mmol/L (-3-3) 5mmol/L (-3-3) FiO2 50 45 White Blood Count 8.8x10^3/uL (4.0-11.0) Red Blood Count 2.87x10^6/uL (4.30-5.70) Hemoglobin 8.4g/dL (13.0-17.5) Hematocrit 27.0% (39.0-53.0) Mean Corpuscular Volume 94fL (79-100) Mean Corpuscular Hemoglobin 29pg (25-35) Mean Corpuscular Hemoglobin Concent 31g/dL (31-37) Red Cell Distribution Width 16.3% (11.5-14.5) Platelet Count 214x10^3/uL (140-400) Neutrophils (%) (Auto) 71% (31-73) Lymphocytes (%) (Auto) 18% (24-48) Monocytes (%) (Auto) 11% (0-9) Eosinophils (%) (Auto) 0% (0-3) Basophils (%) (Auto) 0% (0-3) Neutrophils # (Auto) 6.2x10^3uL (1.8-7.7) Lymphocytes # (Auto) 1.6x10^3/uL (1.0-4.8) Monocytes # (Auto) 0.9x10^3/uL (0.0-1.1) Eosinophils # (Auto) 0.0x10^3/uL (0.0-0.7) Basophils # (Auto) 0.0x10^3/uL (0.0-0.2) Sodium Level 146mmol/L (136-145) Potassium Level 4.7mmol/L (3.5-5.1) Chloride Level 107mmol/L (98-107) Carbon Dioxide Level 34mmol/L (21-32) Anion Gap 5 (6-14) Blood Urea Nitrogen 19mg/dL (8-26) Creatinine 1.5mg/dL (0.7-1.3) Estimated GFR (Cockcroft-Gault) 44.9 Glucose Level 134mg/dL (70-99) Calcium Level 8.2mg/dL (8.5-10.1) Test 07/15/16 09:19 O2 Saturation 93% (92-99) Arterial Blood pH 7.25 (7.35-7.45) Arterial Blood pCO2 at Patient Temp 75mmHg (35-46) Arterial Blood pO2 at Patient Temp 71mmHg (65-108) Arterial Blood HCO3 32mmol/L (21-28) Arterial Blood Base Excess 3mmol/L (-3-3) FiO2 40% Medications Active Scripts Medications Dose Route/Sig Days Date Category Atorvastatin Calcium 20 Mg Tablet 20 Mg PO HS 06/12/16 Reported Omeprazole 20 Mg Capsule.dr 1 Cap PO DAILY 06/12/16 Reported Celebrex (Celecoxib) 200 Mg Capsule 1 Cap PO DAILY 06/12/16 Reported Lisinopril-Hctz 20-25 Mg Tab (Lisinopril/Hydrochlorothiazide) 1 Each Tablet 1 Tab PO BID 06/12/16 Reported Metoprolol Tartrate 100 Mg Tablet 1 Tab PO BID 06/12/16 Reported Impression . 1. Acute hypoxic and hypercapnic respiratory failure secondary to healthcare-associated pneumonia involving the left lung./ pleural effusion 2. Possible underlying chronic obstructive pulmonary disease. 3. Recent hip surgery. 4. Influenza screen negative. 5. Abnormal arterial blood gases consistent with [id number] hypercapnia. 6. Ct chest reviewed/ moderate left effusion/ small right, suspect due to low oncotic pressure Plan . 1. Continue with present BiPAP. 2. Follow ABGs and make necessary adjustments. 3. We will continue broad-spectrum antibiotics. 4. Follow blood cultures. 5. Noncontrast CT chest reviewed. Would benefit from left thoracentesis. d/w pt and daughter, both agrees 6. Continue with DuoNebs. 7. hold Lovenox / coumadin today 8. Discussed RN. LATRELL PORTILLO MD Jul 15, 2016 10:33
[2016-07-15] MEDS ORDERED: FUROSEMIDE 40 MG/4 ML VIAL IVP ONE (11:00)
[2016-07-15 11:08] LABS: INR 1.3 (0.8-1.1); PROTHROMBIN TIME PATIENT 15.4 SEC (11.7-14.0)
[2016-07-15] MEDS: ENOXAPARIN 40 MG/0.4 ML DISP.SYRIN. SQ SCH (12:00)
--- NOTE | 2016-07-15 12:00 | PDOC ---
PROGRESS NOTES Chief Complaint Chief Complaint 1. Acute hypoxic and hypercapnic respiratory failure 2. COPD, w. acute bronchitis 3. Recent hip surgery. hip pain 4. likely chronic hypercapnic failure 5. moderate left effusion History of Present Illness History of Present Illness cont Bipap thoracenteiss today MVI and vit c per nutrition he reports feeling improved Vitals Vitals Vital Signs Date Time Temp Pulse Resp B/P Pulse Ox O2 Delivery O2 Flow Rate FiO2 07/15/16 11:18 100 BiPAP/CPAP 07/15/16 11:00 98.2 84 29 92/54 10.0 98.2 Physical Exam General: Alert, Cooperative, mild distress Heart: Regular rate, No murmurs Lungs: Other (decrease bs) Extremities: No clubbing, No cyanosis Skin: No rashes, No significant lesion Labs LABS Laboratory Tests Test 07/14/16 12:00 07/14/16 15:00 07/15/16 04:30 07/15/16 09:19 O2 Saturation 94% (92-99) 96% (92-99) 93% (92-99) Arterial Blood pH 7.30 (7.35-7.45) 7.39 (7.35-7.45) 7.25 (7.35-7.45) Arterial Blood pCO2 at Patient Temp 67mmHg (35-46) 50mmHg (35-46) 75mmHg (35-46) Arterial Blood pO2 at Patient Temp 77mmHg (65-108) 87mmHg (65-108) 71mmHg (65-108) Arterial Blood HCO3 32mmol/L (21-28) 30mmol/L (21-28) 32mmol/L (21-28) Arterial Blood Base Excess 5mmol/L (-3-3) 5mmol/L (-3-3) 3mmol/L (-3-3) FiO2 50 45 40% White Blood Count 8.8x10^3/uL (4.0-11.0) Red Blood Count 2.87x10^6/uL (4.30-5.70) Hemoglobin 8.4g/dL (13.0-17.5) Hematocrit 27.0% (39.0-53.0) Mean Corpuscular Volume 94fL (79-100) Mean Corpuscular Hemoglobin 29pg (25-35) Mean Corpuscular Hemoglobin Concent 31g/dL (31-37) Red Cell Distribution Width 16.3% (11.5-14.5) Platelet Count 214x10^3/uL (140-400) Neutrophils (%) (Auto) 71% (31-73) Lymphocytes (%) (Auto) 18% (24-48) Monocytes (%) (Auto) 11% (0-9) Eosinophils (%) (Auto) 0% (0-3) Basophils (%) (Auto) 0% (0-3) Neutrophils # (Auto) 6.2x10^3uL (1.8-7.7) Lymphocytes # (Auto) 1.6x10^3/uL (1.0-4.8) Monocytes # (Auto) 0.9x10^3/uL (0.0-1.1) Eosinophils # (Auto) 0.0x10^3/uL (0.0-0.7) Basophils # (Auto) 0.0x10^3/uL (0.0-0.2) Sodium Level 146mmol/L (136-145) Potassium Level 4.7mmol/L (3.5-5.1) Chloride Level 107mmol/L (98-107) Carbon Dioxide Level 34mmol/L (21-32) Anion Gap 5 (6-14) Blood Urea Nitrogen 19mg/dL (8-26) Creatinine 1.5mg/dL (0.7-1.3) Estimated GFR (Cockcroft-Gault) 44.9 Glucose Level 134mg/dL (70-99) Calcium Level 8.2mg/dL (8.5-10.1) Assessment and Plan Assessmemt and Plan Problems Medical Problems: (1) Acute on chronic respiratory failure Status: Acute (2) Congestive heart failure Status: Acute (3) Healthcare-associated pneumonia Status: Acute (4) Normocytic anemia Status: Acute (5) Sepsis Status: Acute (6) Severe protein-calorie malnutrition Status: Acute Problems: Comment Review of Relevant I have reviewed the following items miguel ángel (where applicable) has been applied. Labs Laboratory Tests Test 07/14/16 08:09 07/14/16 08:31 07/14/16 08:59 07/14/16 10:30 White Blood Count 8.5x10^3/uL (4.0-11.0) Red Blood Count 2.98x10^6/uL (4.30-5.70) Hemoglobin 8.7g/dL (13.0-17.5) Hematocrit 27.8% (39.0-53.0) Mean Corpuscular Volume 93fL (79-100) Mean Corpuscular Hemoglobin 29pg (25-35) Mean Corpuscular Hemoglobin Concent 31g/dL (31-37) Red Cell Distribution Width 15.5% (11.5-14.5) Platelet Count 228x10^3/uL (140-400) Neutrophils (%) (Auto) 85% (31-73) Lymphocytes (%) (Auto) 8% (24-48) Monocytes (%) (Auto) 6% (0-9) Eosinophils (%) (Auto) 0% (0-3) Basophils (%) (Auto) 1% (0-3) Neutrophils # (Auto) 7.2x10^3uL (1.8-7.7) Lymphocytes # (Auto) 0.7x10^3/uL (1.0-4.8) Monocytes # (Auto) 0.5x10^3/uL (0.0-1.1) Eosinophils # (Auto) 0.0x10^3/uL (0.0-0.7) Basophils # (Auto) 0.1x10^3/uL (0.0-0.2) Prothrombin Time 15.4SEC (11.7-14.0) Prothromb Time International Ratio 1.3 (0.8-1.1) Activated Partial Thromboplast Time 30SEC (24-38) Sodium Level 143mmol/L (136-145) Potassium Level 4.3mmol/L (3.5-5.1) Chloride Level 105mmol/L (98-107) Carbon Dioxide Level 37mmol/L (21-32) Anion Gap 1 (6-14) Blood Urea Nitrogen 10mg/dL (8-26) Creatinine 1.1mg/dL (0.7-1.3) Estimated GFR (Cockcroft-Gault) 64.2 BUN/Creatinine Ratio 9 (6-20) Glucose Level 140mg/dL (70-99) Lactic Acid Level 1.0mmol/L (0.4-2.0) 1.0mmol/L (0.4-2.0) Calcium Level 8.2mg/dL (8.5-10.1) Total Bilirubin 0.6mg/dL (0.2-1.0) Aspartate Amino Transf (AST/SGOT) 36U/L (15-37) Alanine Aminotransferase (ALT/SGPT) 29U/L (16-63) Alkaline Phosphatase 146U/L (46-116) Creatine Kinase 75U/L (39-308) Creatine Kinase MB (Mass) 1.4ng/mL (0.0-3.6) Creatine Kinase MB Relative Index 1.9% (0-4) Total Protein 6.8g/dL (6.4-8.2) Albumin 2.6g/dL (3.4-5.0) Albumin/Globulin Ratio 0.6 (1.0-1.7) Procalcitonin 0.18ng/mL (0.00-0.10) Influenza Type A Antigen Negative (NEGATIVE) Influenza Type B Antigen Negative (NEGATIVE) O2 Saturation 89% (92-99) Arterial Blood pH 7.26 (7.35-7.45) Arterial Blood pCO2 at Patient Temp 82mmHg (35-46) Arterial Blood pO2 at Patient Temp 62mmHg (65-108) Arterial Blood HCO3 36mmol/L (21-28) Arterial Blood Base Excess 7mmol/L (-3-3) FiO2 40 Test 07/14/16 12:00 07/14/16 15:00 07/15/16 04:30 07/15/16 09:19 O2 Saturation 94% (92-99) 96% (92-99) 93% (92-99) Arterial Blood pH 7.30 (7.35-7.45) 7.39 (7.35-7.45) 7.25 (7.35-7.45) Arterial Blood pCO2 at Patient Temp 67mmHg (35-46) 50mmHg (35-46) 75mmHg (35-46) Arterial Blood pO2 at Patient Temp 77mmHg (65-108) 87mmHg (65-108) 71mmHg (65-108) Arterial Blood HCO3 32mmol/L (21-28) 30mmol/L (21-28) 32mmol/L (21-28) Arterial Blood Base Excess 5mmol/L (-3-3) 5mmol/L (-3-3) 3mmol/L (-3-3) FiO2 50 45 40% White Blood Count 8.8x10^3/uL (4.0-11.0) Red Blood Count 2.87x10^6/uL (4.30-5.70) Hemoglobin 8.4g/dL (13.0-17.5) Hematocrit 27.0% (39.0-53.0) Mean Corpuscular Volume 94fL (79-100) Mean Corpuscular Hemoglobin 29pg (25-35) Mean Corpuscular Hemoglobin Concent 31g/dL (31-37) Red Cell Distribution Width 16.3% (11.5-14.5) Platelet Count 214x10^3/uL (140-400) Neutrophils (%) (Auto) 71% (31-73) Lymphocytes (%) (Auto) 18% (24-48) Monocytes (%) (Auto) 11% (0-9) Eosinophils (%) (Auto) 0% (0-3) Basophils (%) (Auto) 0% (0-3) Neutrophils # (Auto) 6.2x10^3uL (1.8-7.7) Lymphocytes # (Auto) 1.6x10^3/uL (1.0-4.8) Monocytes # (Auto) 0.9x10^3/uL (0.0-1.1) Eosinophils # (Auto) 0.0x10^3/uL (0.0-0.7) Basophils # (Auto) 0.0x10^3/uL (0.0-0.2) Sodium Level 146mmol/L (136-145) Potassium Level 4.7mmol/L (3.5-5.1) Chloride Level 107mmol/L (98-107) Carbon Dioxide Level 34mmol/L (21-32) Anion Gap 5 (6-14) Blood Urea Nitrogen 19mg/dL (8-26) Creatinine 1.5mg/dL (0.7-1.3) Estimated GFR (Cockcroft-Gault) 44.9 Glucose Level 134mg/dL (70-99) Calcium Level 8.2mg/dL (8.5-10.1) Laboratory Tests Test 07/14/16 12:00 07/14/16 15:00 07/15/16 04:30 07/15/16 09:19 O2 Saturation 94% (92-99) 96% (92-99) 93% (92-99) Arterial Blood pH 7.30 (7.35-7.45) 7.39 (7.35-7.45) 7.25 (7.35-7.45) Arterial Blood pCO2 at Patient Temp 67mmHg (35-46) 50mmHg (35-46) 75mmHg (35-46) Arterial Blood pO2 at Patient Temp 77mmHg (65-108) 87mmHg (65-108) 71mmHg (65-108) Arterial Blood HCO3 32mmol/L (21-28) 30mmol/L (21-28) 32mmol/L (21-28) Arterial Blood Base Excess 5mmol/L (-3-3) 5mmol/L (-3-3) 3mmol/L (-3-3) FiO2 50 45 40% White Blood Count 8.8x10^3/uL (4.0-11.0) Red Blood Count 2.87x10^6/uL (4.30-5.70) Hemoglobin 8.4g/dL (13.0-17.5) Hematocrit 27.0% (39.0-53.0) Mean Corpuscular Volume 94fL (79-100) Mean Corpuscular Hemoglobin 29pg (25-35) Mean Corpuscular Hemoglobin Concent 31g/dL (31-37) Red Cell Distribution Width 16.3% (11.5-14.5) Platelet Count 214x10^3/uL (140-400) Neutrophils (%) (Auto) 71% (31-73) Lymphocytes (%) (Auto) 18% (24-48) Monocytes (%) (Auto) 11% (0-9) Eosinophils (%) (Auto) 0% (0-3) Basophils (%) (Auto) 0% (0-3) Neutrophils # (Auto) 6.2x10^3uL (1.8-7.7) Lymphocytes # (Auto) 1.6x10^3/uL (1.0-4.8) Monocytes # (Auto) 0.9x10^3/uL (0.0-1.1) Eosinophils # (Auto) 0.0x10^3/uL (0.0-0.7) Basophils # (Auto) 0.0x10^3/uL (0.0-0.2) Sodium Level 146mmol/L (136-145) Potassium Level 4.7mmol/L (3.5-5.1) Chloride Level 107mmol/L (98-107) Carbon Dioxide Level 34mmol/L (21-32) Anion Gap 5 (6-14) Blood Urea Nitrogen 19mg/dL (8-26) Creatinine 1.5mg/dL (0.7-1.3) Estimated GFR (Cockcroft-Gault) 44.9 Glucose Level 134mg/dL (70-99) Calcium Level 8.2mg/dL (8.5-10.1) Microbiology 07/14/16 Blood Culture - Preliminary, Resulted NO GROWTH AFTER 1 DAY Medications Current Medications Sodium Chloride (Iv Sodium Chloride 0.9% 1000ml Bag) 2,790 ml @ 697.5 mls/ hr Q4H IV ; Start 07/14/16 at 07:58; Stop 07/14/16 at 08:03; Status DC Vancomycin HCl (Vanco Per Pharmacy) 1 each PRN DAILY PRN MC SEE COMMENTS Last administered on 07/14/16 09:16; Start 07/14/16 at 08:00; Stop 07/14/16 at 13:37 ; Status DC Piperacillin Sod/ Tazobactam Sod (Zosyn Per Pharmacy) 1 each PRN DAILY PRN MC SEE COMMENTS; Start 07/14/16 at 08:00 Levofloxacin/ Dextrose 1 each 1 each PRN DAILY PRN MC SEE COMMENTS; Start 07/14 at 08:00; Status Cancel Sodium Chloride 1,000 ml @ 697.5 mls/ hr Q1H27M IV Last administered on 08:23; Start 07/14/16 at 08:03; Stop 07/14/16 at 11:58; Status DC Vancomycin HCl 2 gm/Sodium Chloride 500 ml @ 250 mls/hr 1X ONCE IV Last administered on 07/14/16 08:24; Start 07/14/16 at 09:00; Stop 07/14/16 at 10:59 ; Status DC Levofloxacin/ Dextrose 150 ml @ 100 mls/hr 1X ONCE IV Last administered on 10:04; Start 07/14/16 at 08:30; Stop 07/14/16 at 09:59; Status DC Piperacillin Sod/ Tazobactam Sod 4.5 gm/Sodium Chloride 100 ml @ 200 mls/hr 1X ONCE IV Last administered on 07/14/16 08:23; Start 07/14/16 at 08:30; Stop 07/14/16 at 08:59; Status DC Levofloxacin/ Dextrose (LEVAQUIN 750mg PREMIX) 150 ml @ 100 mls/hr Q24H IV ; Start 07/15/16 at 10:00; Stop 07/15/16 at 10:00; Status DC Ondansetron HCl 4 mg 4 mg PRN Q8HRS PRN IV NAUSEA/VOMITING; Start 07/14/16 at 09:15; Stop 07/14/16 at 13:37; Status DC Sodium Chloride (Iv Sodium Chloride 0.9% 1000ml Bag) 1,000 ml @ 75 mls/hr [id number] IV Last administered on 07/14/16 11:55; Start 07/14/16 at 09:11; Stop 07/14/16 at 13:38; Status DC Acetaminophen (Tylenol) 650 mg PRN Q4HRS PRN PO FEVER; Start 07/14/16 at 09:15 ; Stop 07/14/16 at 13:38; Status DC Albuterol/ Ipratropium 3 ml 3 ml RTQID NEB Last administered on 07/15/16 11:13 ; Start 07/14/16 at 12:00; Stop 07/15/16 at 11:59 Vancomycin HCl/ Sodium Chloride (Iv Sodium Chloride 0.9% 250ml) 250 ml @ 167 mls/hr Q24H IV Last administered on 07/15/16 08:11; Start 07/15/16 at 08:30 Vancomycin HCl 1 each 1 each 1X ONCE MC ; Start 07/16/16 at 08:00; Stop at 08:01 Piperacillin Sod/ Tazobactam Sod/ Sodium Chloride (Zosyn/Iv Sodium Chloride 0.9 % 100ml) 100 ml @ 200 mls/hr Q6HRS IV Last administered on 07/15/16 05:42; Start 07/14/16 at 18:00 Enoxaparin Sodium (Lovenox 40mg Syringe) 40 mg Q24H SQ Last administered on 11:58; Start 07/14/16 at 12:00 Atorvastatin Calcium (Lipitor) 20 mg HS PO Last administered on 07/14/16 21:13 ; Start 07/14/16 at 21:00 Celecoxib (Celebrex) 200 mg DAILY PO Last administered on 07/15/16 08:10; Start 07/14/16 at 14:00 Lisinopril (Prinivil) 20 mg DAILY PO Last administered on 07/15/16 08:10; Start 07/14/16 at 14:00 Metoprolol Tartrate (Lopressor) 100 mg BID PO Last administered on 07/15/16 08 :10; Start 07/14/16 at 21:00 Pantoprazole Sodium (Protonix) 40 mg DAILYAC PO Last administered on 07/15/16 08:10; Start 07/14/16 at 16:30 Acetaminophen (Tylenol) 325 mg PRN Q6HRS PRN PO MILD PAIN / TEMP Last administered on 07/14/16 15:00; Start 07/14/16 at 13:30 Acetaminophen/ Hydrocodone Bitart (Lortab 5/325) 1 tab PRN Q6HRS PRN PO MODERATE TO SEVERE PAIN; Start 07/14/16 at 13:30 Hydralazine HCl (Apresoline) 10 mg PRN Q4HRS PRN IVP ELEVATED BP, SEE COMMENTS ; Start 07/14/16 at 13:30 Ondansetron HCl (Zofran) 4 mg PRN Q8HRS PRN IV NAUSEA/VOMITING; Start 07/14/16 at 13:30 Albuterol Sulfate (Ventolin Neb Soln) 2.5 mg PRN Q4HRS PRN NEB SHORTNESS OF BREATH Last administered on 07/15/16 09:15; Start 07/14/16 at 13:30 Enoxaparin Sodium (Lovenox 40mg Syringe) 40 mg Q24H SQ ; Start 07/14/16 at 14:00 ; Status Cancel Vancomycin HCl 1 each 1 each PRN DAILY PRN MC SEE COMMENTS Last administered on 07/15/16 07:50; Start 07/14/16 at 13:30 Piperacillin Sod/ Tazobactam Sod/ Sodium Chloride (Zosyn/Iv Sodium Chloride 0.9 % 50ml) 50 ml @ 100 mls/hr Q6HRS IV ; Start 07/14/16 at 13:30; Status Cancel Levofloxacin/ Dextrose 1 each 1 each PRN DAILY PRN MC SEE COMMENTS; Start 07/14 at 13:30 Sodium Chloride 1,000 ml @ 75 mls/hr [id number] IV Last administered on 02:50; Start 07/14/16 at 13:30 Levofloxacin/ Dextrose (LEVAQUIN 750mg PREMIX) 150 ml @ 100 mls/hr Q48H IV Last administered on 07/15/16 10:42; Start 07/15/16 at 10:00 Furosemide (Lasix) 40 mg 1X ONCE IVP ; Start 07/15/16 at 11:00; Stop 07/15/16 at 11:01; Status DC Zinc Sulfate (Orazinc) 220 mg DAILY PO ; Start 07/16/16 at 09:00; Status UNV Ascorbic Acid (Vitamin C) 500 mg DAILY PO ; Start 07/16/16 at 09:00; Status UNV Multivitamins/ Calcium (Thera M Plus) 1 tab DAILY PO ; Start 07/16/16 at 09:00; Status UNV Active Scripts Active Reported Atorvastatin Calcium 20 Mg Tablet 20 Mg PO HS Omeprazole 20 Mg Capsule.dr 1 Cap PO DAILY Celebrex (Celecoxib) 200 Mg Capsule 1 Cap PO DAILY Lisinopril-Hctz 20-25 Mg Tab (Lisinopril/Hydrochlorothiazide) 1 Each Tablet 1 Tab PO BID Metoprolol Tartrate 100 Mg Tablet 1 Tab PO BID Vitals/I & O Vital Sign - Last 24 Hours 07/14/16 07/14/16 07/14/16 07/14/16 12:51 15:04 15:32 17:35 Temp 99.3 99.3 Pulse 86 Resp 26 B/P 118/57 Pulse Ox 99 98 100 97 O2 Delivery BiPAP/CPAP BiPAP/CPAP BiPAP/CPAP Venturi Mask O2 Flow Rate 35.0 1/26/17 1/26/17 1/26/17 1/26/17 19:48 20:00 20:19 21:13 Temp 97.9 97.9 Pulse 99 99 Resp 24 B/P 113/61 113/61 Pulse Ox 91 91 O2 Delivery Venturi Mask Venturi Mask Venturi Mask O2 Flow Rate 9.0 9.0 07/14/16 07/15/16 07/15/16 07/15/16 22:53 03:59 05:54 07:00 Temp 97.3 100.0 97.3 100.0 Pulse 82 92 111 Resp 20 30 28 B/P 119/62 123/74 163/68 Pulse Ox 96 100 95 88 O2 Delivery Venturi Mask Venturi Mask Venturi Mask Venturi Mask O2 Flow Rate 9.0 10.0 9.0 10.0 07/15/16 07/15/16 07/15/16 07/15/16 08:00 08:10 08:10 09:20 Pulse 111 111 B/P 163/68 163/68 Pulse Ox 100 O2 Delivery Venturi Mask BiPAP/CPAP O2 Flow Rate 10.0 07/15/16 07/15/16 11:00 11:18 Temp 98.2 98.2 Pulse 84 Resp 29 B/P 92/54 Pulse Ox 90 100 O2 Delivery Venturi Mask BiPAP/CPAP O2 Flow Rate 10.0 Intake and Output 07/14/16 07/14/16 07/15/16 15:00 23:00 07:00 Intake Total 1100 ml 989 ml 1580 ml Output Total 500 ml 150 ml Balance 1100 ml 489 ml 1430 ml PATITO CARLSON MD Jul 15, 2016 12:00
[2016-07-15 12:36] LABS: HCO3 ABG 28 mmol/L (21-28); PH ABG 7.27 (7.35-7.45); PO2 ABG 84 mmHg (65-108); SAT O2 ABG 95 % (92-99)
[2016-07-15 12:37] LABS: FIO2 ABG 35%; PCO2 ABG 62 mmHg (35-46)
[2016-07-15] MEDS: MULTIVITAMIN with MINERAL TABLET. PO SCH (13:00)
[2016-07-15] MEDS: ASCORBIC ACID 500 MG TABLET PO SCH (13:00)
[2016-07-15] MEDS: ZINC SULFATE 220 MG CAPSULE. PO SCH (13:00)
[2016-07-15] MEDS ORDERED: LIDOCAINE 1% / SOD BICARB 8.4% 20 ML VIAL. IJ ONE ×2 (14:38→16:00)
[2016-07-15] MEDS ORDERED: FENTANYL PF 100 MCG/2 ML VIAL. ONE (14:54)
[2016-07-15] MEDS ORDERED: MIDAZOLAM HCL 2 MG/2 ML VIAL. ONE (14:54)
[2016-07-15 15:26] LABS: HCO3 ABG 31 mmol/L (21-28); PO2 ABG 63 mmHg (65-108); SAT O2 ABG 92 % (92-99)
--- NOTE | 2016-07-15 15:51 | PDOC ---
Exam Oven Tender Oven Tender Magaly Dumper Bulk System Dumper Bulk System Roddy Hendricks Pre-Procedure Diagnosis Pre-Procedure Diagnosis 80 YO male with acute hypoxic and hypercapnic respiratory failure. Pneumona. Moderate left pleural effusion. Post-Procedure Diagnosis Post-Procedure Diagnosis Same Procedure Performed Procedure Performed CT guided Dx/Tx left thoracentesis Type of Anesthesia Type of Anesthesia Local Only Estimated Blood Loss EBL: Trace Specimens Specimans 600 cc straw-slightly hazy left pleural fluid removed---samples to lab per protocol Condition of Patient Condition of Patient No change. On BiPAP. No apparent complication. Disposition Disposition From IR/CT return to [facility]. F/u with Dr Hendrix. Full report to follow. KRISTI WHITE MD Jul 15, 2016 15:51
[2016-07-15 16:25] LABS: FIO2 ABG 30%; PCO2 ABG 58 mmHg (35-46); PH ABG 7.35 (7.35-7.45)
[2016-07-15 18:06] LABS: BF CLARITY HAZY; BF COLOR YELLOW
[2016-07-15] MEDS: ATORVASTATIN CALCIUM 20 MG TABLET PO SCH (22:00)
[2016-07-16] VITALS (7 sets, daily range): BP systolic 102–131; BP diastolic 44–66
[2016-07-16] MEDS: PIPERACILLIN/TAZOBACTAM 4.5 GM in IV NORMAL SALINE 100ML 100 ML IV SCH ×4 (00:13→18:13)
[2016-07-16] MEDS: IV NORMAL SALINE 1000ML BAG 1,000 ML IV SCH (05:30)
[2016-07-16] MEDS: ALBUTEROL SULFATE 2.5 MG/3 ML NEBU. NEB PRN (08:11)
[2016-07-16] MEDS: VANCOMYCIN 1.25 GM in IV NORMAL SALINE 250ML 250 ML IV SCH (08:30)
--- NOTE | 2016-07-16 08:34 | RAD ---
EXAM: Chest, single view. HISTORY: Shortness of breath. COMPARISON: 07/15/2016. FINDINGS: A frontal view of the chest is obtained. There is increased opacity overlying the right mid right likely due to asymmetric overlying soft tissue right within infiltrate. There are suspected small pleural effusions. There is stable cardiomegaly. There are advanced degenerative changes involving both shoulders. IMPRESSION: 1. Small pleural effusions, likely decreased compared to the recent CT when allowing for differences in imaging modality. 2. Cardiomegaly. 3. Lateral right mid thorax opacity likely due to asymmetric overlying soft tissue rather than infiltrate.
[2016-07-16 08:37] LABS: HCO3 ABG 30 mmol/L (21-28); PCO2 ABG 48 mmHg (35-46); PH ABG 7.42 (7.35-7.45); PO2 ABG 88 mmHg (65-108); SAT O2 ABG 96 % (92-99)
[2016-07-16 08:45] LABS: FIO2 ABG 30
--- NOTE | 2016-07-16 08:46 | RAD ---
EXAM: Chest, single view. HISTORY: Thoracentesis. COMPARISON: 07/15/2016. FINDINGS: A frontal view of the chest is obtained. There are small bilateral pleural effusions. There is lower lobe predominant atelectasis. There is cardiomegaly. There is no pneumothorax. IMPRESSION: 1. Small bilateral pleural effusions. There is no pneumothorax status post thoracentesis. 2. Lower lobe predominant atelectasis. 3. Cardiomegaly.
[2016-07-16] MEDS: ASCORBIC ACID 500 MG TABLET PO SCH (09:01)
[2016-07-16] MEDS: ZINC SULFATE 220 MG CAPSULE. PO SCH (09:01)
[2016-07-16] MEDS: CELECOXIB 200 MG CAPSULE PO SCH (09:01)
[2016-07-16] MEDS: METOPROLOL TART IMMED RELEASE 50 MG TABLET PO SCH ×2 (09:02→22:00)
[2016-07-16] MEDS: MULTIVITAMIN with MINERAL TABLET. PO SCH (09:02)
[2016-07-16] MEDS: PANTOPRAZOLE 40 MG TABLET. PO SCH (09:02)
[2016-07-16] MEDS: LISINOPRIL 20 MG TABLET PO SCH (09:03)
[2016-07-16] MEDS: VANCOMYCIN PER PHARMACY MC PRN (09:19)
--- NOTE | 2016-07-16 09:35 | RAD ---
CT-guided diagnostic and therapeutic left thoracentesis Indication: 80-year-old male with hypoxic and hypercapnic respiratory failure, pneumonia, and moderate left pleural effusion. Image guided diagnostic/therapeutic left thoracentesis has been requested. Anesthesia: Local only Procedure: Informed consent was obtained from the patient's daughter. He was placed supine on the CT scanner. Preliminary noncontrast CT images confirmed the presence of a moderately large left pleural effusion, with associated left basilar compression atelectasis. A skin site suitable for CT-guided thoracentesis was selected and marked along the lateral aspect of lower left hemithorax. That area was prepped and draped in the usual sterile fashion. Using aseptic technique, local anesthesia, and CT guidance, a micropuncture sheath was successfully introduced into the low left lateral pleural space. This sheath was then exchanged over a guidewire for a 6 [place] drainage catheter. Approximately 600 cc of straw-slightly hazy pleural fluid was then easily removed, samples which were submitted to the clinical laboratory per referring truck rental clerk request. Completion CT images documented significant reduction in volume of the left pleural effusion, without pneumothorax. The drainage catheter was removed and a sterile dressing was applied. Patient tolerated the procedure well without apparent complication. Impression: Successful, uneventful CT-guided diagnostic and therapeutic left thoracentesis, as described. PQRS compliance statement: One or more of the following individualized dose reduction techniques was utilized for this CT procedure: 1. Automated exposure control. 2. Adjustment of MA and/or KV according to patient size. 3. Iterative reconstruction technique.
[2016-07-16] MEDS: VANCOMYCIN 1.5 GM in IV NORMAL SALINE 500ML BAG 500 ML IV SCH (09:48)
--- NOTE | 2016-07-16 11:14 | PDOC ---
PULMONARY PROGRESS NOTES Subjective much better off BIPAP s/p left thoracentesis 07/15 Vitals Vital Signs Date Time Temp Pulse Resp B/P Pulse Ox O2 Delivery O2 Flow Rate FiO2 07/16/16 09:03 119/63 07/16/16 09:02 92 07/16/16 07:55 100 BiPAP/CPAP 07/16/16 07:24 98.6 24 98.6 07/15/16 15:48 15.0 General: Alert, No acute distress Lungs: Other (decrease bs) Abdomen: Soft Neuro Exam: Alert Extremities: Other (trace edema) Labs Laboratory Tests Test 07/14/16 12:00 07/14/16 15:00 07/15/16 04:30 07/15/16 09:19 O2 Saturation 94% (92-99) 96% (92-99) 93% (92-99) Arterial Blood pH 7.30 (7.35-7.45) 7.39 (7.35-7.45) 7.25 (7.35-7.45) Arterial Blood pCO2 at Patient Temp 67mmHg (35-46) 50mmHg (35-46) 75mmHg (35-46) Arterial Blood pO2 at Patient Temp 77mmHg (65-108) 87mmHg (65-108) 71mmHg (65-108) Arterial Blood HCO3 32mmol/L (21-28) 30mmol/L (21-28) 32mmol/L (21-28) Arterial Blood Base Excess 5mmol/L (-3-3) 5mmol/L (-3-3) 3mmol/L (-3-3) FiO2 50 45 40% White Blood Count 8.8x10^3/uL (4.0-11.0) Red Blood Count 2.87x10^6/uL (4.30-5.70) Hemoglobin 8.4g/dL (13.0-17.5) Hematocrit 27.0% (39.0-53.0) Mean Corpuscular Volume 94fL (79-100) Mean Corpuscular Hemoglobin 29pg (25-35) Mean Corpuscular Hemoglobin Concent 31g/dL (31-37) Red Cell Distribution Width 16.3% (11.5-14.5) Platelet Count 214x10^3/uL (140-400) Neutrophils (%) (Auto) 71% (31-73) Lymphocytes (%) (Auto) 18% (24-48) Monocytes (%) (Auto) 11% (0-9) Eosinophils (%) (Auto) 0% (0-3) Basophils (%) (Auto) 0% (0-3) Neutrophils # (Auto) 6.2x10^3uL (1.8-7.7) Lymphocytes # (Auto) 1.6x10^3/uL (1.0-4.8) Monocytes # (Auto) 0.9x10^3/uL (0.0-1.1) Eosinophils # (Auto) 0.0x10^3/uL (0.0-0.7) Basophils # (Auto) 0.0x10^3/uL (0.0-0.2) Sodium Level 146mmol/L (136-145) Potassium Level 4.7mmol/L (3.5-5.1) Chloride Level 107mmol/L (98-107) Carbon Dioxide Level 34mmol/L (21-32) Anion Gap 5 (6-14) Blood Urea Nitrogen 19mg/dL (8-26) Creatinine 1.5mg/dL (0.7-1.3) Estimated GFR (Cockcroft-Gault) 44.9 Glucose Level 134mg/dL (70-99) Calcium Level 8.2mg/dL (8.5-10.1) Test 07/15/16 10:45 07/15/16 12:32 07/15/16 15:00 07/15/16 15:40 Prothrombin Time 15.4SEC (11.7-14.0) Prothromb Time International Ratio 1.3 (0.8-1.1) O2 Saturation 95% (92-99) 92% (92-99) Arterial Blood pH 7.27 (7.35-7.45) 7.35 (7.35-7.45) Arterial Blood pCO2 at Patient Temp 62mmHg (35-46) 58mmHg (35-46) Arterial Blood pO2 at Patient Temp 84mmHg (65-108) 63mmHg (65-108) Arterial Blood HCO3 28mmol/L (21-28) 31mmol/L (21-28) Arterial Blood Base Excess 0mmol/L (-3-3) 5mmol/L (-3-3) FiO2 35% 30% Body Fluid Source Pleural Body Fluid Color Yellow Body Fluid Clarity Hazy Body Fluid Nucleated Cells 1230/cmm Body Fluid Mononuclear WBCs (%) 59% Body Fluid Polymorphonuclear Cells 7% Body Fluid Total RBCs Counted 4200/cmm Body Fluid Other Cells (%) 34% Test 07/16/16 08:05 07/16/16 08:15 Vancomycin Level Trough 13.4mcg/mL (10.0-20.0) Vancomycin Last Dose Date 07/15/16 Vancomycin Last Dose Time 0830 O2 Saturation 96% (92-99) Arterial Blood pH 7.42 (7.35-7.45) Arterial Blood pCO2 at Patient Temp 48mmHg (35-46) Arterial Blood pO2 at Patient Temp 88mmHg (65-108) Arterial Blood HCO3 30mmol/L (21-28) Arterial Blood Base Excess 5mmol/L (-3-3) FiO2 30 Laboratory Tests Test 07/15/16 12:32 07/15/16 15:00 07/15/16 15:40 07/16/16 08:05 O2 Saturation 95% (92-99) 92% (92-99) Arterial Blood pH 7.27 (7.35-7.45) 7.35 (7.35-7.45) Arterial Blood pCO2 at Patient Temp 62mmHg (35-46) 58mmHg (35-46) Arterial Blood pO2 at Patient Temp 84mmHg (65-108) 63mmHg (65-108) Arterial Blood HCO3 28mmol/L (21-28) 31mmol/L (21-28) Arterial Blood Base Excess 0mmol/L (-3-3) 5mmol/L (-3-3) FiO2 35% 30% Body Fluid Source Pleural Body Fluid Color Yellow Body Fluid Clarity Hazy Body Fluid Nucleated Cells 1230/cmm Body Fluid Mononuclear WBCs (%) 59% Body Fluid Polymorphonuclear Cells 7% Body Fluid Total RBCs Counted 4200/cmm Body Fluid Other Cells (%) 34% Vancomycin Level Trough 13.4mcg/mL (10.0-20.0) Vancomycin Last Dose Date 07/15/16 Vancomycin Last Dose Time 0830 Test 07/16/16 08:15 O2 Saturation 96% (92-99) Arterial Blood pH 7.42 (7.35-7.45) Arterial Blood pCO2 at Patient Temp 48mmHg (35-46) Arterial Blood pO2 at Patient Temp 88mmHg (65-108) Arterial Blood HCO3 30mmol/L (21-28) Arterial Blood Base Excess 5mmol/L (-3-3) FiO2 30 Medications Active Scripts Medications Dose Route/Sig Days Date Category Atorvastatin Calcium 20 Mg Tablet 20 Mg PO HS 06/12/16 Reported Omeprazole 20 Mg Capsule.dr 1 Cap PO DAILY 06/12/16 Reported Celebrex (Celecoxib) 200 Mg Capsule 1 Cap PO DAILY 06/12/16 Reported Lisinopril-Hctz 20-25 Mg Tab (Lisinopril/Hydrochlorothiazide) 1 Each Tablet 1 Tab PO BID 06/12/16 Reported Metoprolol Tartrate 100 Mg Tablet 1 Tab PO BID 06/12/16 Reported Comments CXR 07/16 resolved effusions Impression . 1. Acute hypoxic and hypercapnic respiratory failure secondary to healthcare-associated pneumonia involving the left lung./ pleural effusion 2. Possible underlying chronic obstructive pulmonary disease. 3. Recent hip surgery. 4. Influenza screen negative. 5. Abnormal arterial blood gases consistent with [id number] hypercapnia. 6. Ct chest reviewed/ moderate left effusion/ small right, suspect due to low oncotic pressure Plan . 1. Continue with PRN BiPAP. 2. Follow ABGs much improved. will repeat today off BIPAP 3. We will continue broad-spectrum antibiotics. 4. Follow blood cultures. 5. s/p left thoracentesis. follow results 6. Continue with DuoNebs. 7. resume Lovenox 8. Discussed RN. LATRELL PORTILLO MD Jul 16, 2016 11:14
[2016-07-16] MEDS: IPRATRPIUM/ALBUTEROL 0.5/2.5MG 3 ML NEBU. NEB SCH ×3 (11:42→19:35)
--- NOTE | 2016-07-16 12:31 | PDOC ---
PROGRESS NOTES Chief Complaint Chief Complaint 1. Acute hypoxic and hypercapnic respiratory failure 2. COPD, w. acute bronchitis 3. Recent hip surgery. hip pain 4. likely chronic hypercapnic failure 5. moderate left effusion 6. dehydration, acute vasomotor yesterday, IV fluid given, History of Present Illness History of Present Illness off bipap chest labs tomorrow for renal fn back pain and weakness MVI and vit c he reports feeling improved Vitals Vitals Vital Signs Date Time Temp Pulse Resp B/P Pulse Ox O2 Delivery O2 Flow Rate FiO2 07/16/16 11:44 82 Nasal Cannula 2.0 07/16/16 11:43 97.8 87 23 125/62 97.8 Physical Exam General: Alert, Cooperative, mild distress Heart: Regular rate, No murmurs Lungs: Other (decrease bs) Abdomen: Normal bowel sounds, No tenderness Extremities: No clubbing, No cyanosis Skin: No rashes, No significant lesion Labs LABS Laboratory Tests Test 07/15/16 12:32 07/15/16 15:00 07/15/16 15:40 07/16/16 08:05 O2 Saturation 95% (92-99) 92% (92-99) Arterial Blood pH 7.27 (7.35-7.45) 7.35 (7.35-7.45) Arterial Blood pCO2 at Patient Temp 62mmHg (35-46) 58mmHg (35-46) Arterial Blood pO2 at Patient Temp 84mmHg (65-108) 63mmHg (65-108) Arterial Blood HCO3 28mmol/L (21-28) 31mmol/L (21-28) Arterial Blood Base Excess 0mmol/L (-3-3) 5mmol/L (-3-3) FiO2 35% 30% Body Fluid Source Pleural Body Fluid Color Yellow Body Fluid Clarity Hazy Body Fluid Nucleated Cells 1230/cmm Body Fluid Mononuclear WBCs (%) 59% Body Fluid Polymorphonuclear Cells 7% Body Fluid Total RBCs Counted 4200/cmm Body Fluid Other Cells (%) 34% Vancomycin Level Trough 13.4mcg/mL (10.0-20.0) Vancomycin Last Dose Date 07/15/16 Vancomycin Last Dose Time 0830 Test 07/16/16 08:15 O2 Saturation 96% (92-99) Arterial Blood pH 7.42 (7.35-7.45) Arterial Blood pCO2 at Patient Temp 48mmHg (35-46) Arterial Blood pO2 at Patient Temp 88mmHg (65-108) Arterial Blood HCO3 30mmol/L (21-28) Arterial Blood Base Excess 5mmol/L (-3-3) FiO2 30 Assessment and Plan Assessmemt and Plan pt and daughter would prefer to SNU not at [facility] open to other SNU, discussed > 15 min Problems Medical Problems: (1) Acute on chronic respiratory failure Status: Acute (2) Congestive heart failure Status: Acute (3) Healthcare-associated pneumonia Status: Acute (4) Normocytic anemia Status: Acute (5) Sepsis Status: Acute (6) Severe protein-calorie malnutrition Status: Acute Problems: Comment Review of Relevant I have reviewed the following items miguel ángel (where applicable) has been applied. Labs Laboratory Tests Test 07/14/16 15:00 07/15/16 04:30 07/15/16 09:19 07/15/16 10:45 O2 Saturation 96% (92-99) 93% (92-99) Arterial Blood pH 7.39 (7.35-7.45) 7.25 (7.35-7.45) Arterial Blood pCO2 at Patient Temp 50mmHg (35-46) 75mmHg (35-46) Arterial Blood pO2 at Patient Temp 87mmHg (65-108) 71mmHg (65-108) Arterial Blood HCO3 30mmol/L (21-28) 32mmol/L (21-28) Arterial Blood Base Excess 5mmol/L (-3-3) 3mmol/L (-3-3) FiO2 45 40% White Blood Count 8.8x10^3/uL (4.0-11.0) Red Blood Count 2.87x10^6/uL (4.30-5.70) Hemoglobin 8.4g/dL (13.0-17.5) Hematocrit 27.0% (39.0-53.0) Mean Corpuscular Volume 94fL (79-100) Mean Corpuscular Hemoglobin 29pg (25-35) Mean Corpuscular Hemoglobin Concent 31g/dL (31-37) Red Cell Distribution Width 16.3% (11.5-14.5) Platelet Count 214x10^3/uL (140-400) Neutrophils (%) (Auto) 71% (31-73) Lymphocytes (%) (Auto) 18% (24-48) Monocytes (%) (Auto) 11% (0-9) Eosinophils (%) (Auto) 0% (0-3) Basophils (%) (Auto) 0% (0-3) Neutrophils # (Auto) 6.2x10^3uL (1.8-7.7) Lymphocytes # (Auto) 1.6x10^3/uL (1.0-4.8) Monocytes # (Auto) 0.9x10^3/uL (0.0-1.1) Eosinophils # (Auto) 0.0x10^3/uL (0.0-0.7) Basophils # (Auto) 0.0x10^3/uL (0.0-0.2) Sodium Level 146mmol/L (136-145) Potassium Level 4.7mmol/L (3.5-5.1) Chloride Level 107mmol/L (98-107) Carbon Dioxide Level 34mmol/L (21-32) Anion Gap 5 (6-14) Blood Urea Nitrogen 19mg/dL (8-26) Creatinine 1.5mg/dL (0.7-1.3) Estimated GFR (Cockcroft-Gault) 44.9 Glucose Level 134mg/dL (70-99) Calcium Level 8.2mg/dL (8.5-10.1) Prothrombin Time 15.4SEC (11.7-14.0) Prothromb Time International Ratio 1.3 (0.8-1.1) Test 07/15/16 12:32 07/15/16 15:00 07/15/16 15:40 07/16/16 08:05 O2 Saturation 95% (92-99) 92% (92-99) Arterial Blood pH 7.27 (7.35-7.45) 7.35 (7.35-7.45) Arterial Blood pCO2 at Patient Temp 62mmHg (35-46) 58mmHg (35-46) Arterial Blood pO2 at Patient Temp 84mmHg (65-108) 63mmHg (65-108) Arterial Blood HCO3 28mmol/L (21-28) 31mmol/L (21-28) Arterial Blood Base Excess 0mmol/L (-3-3) 5mmol/L (-3-3) FiO2 35% 30% Body Fluid Source Pleural Body Fluid Color Yellow Body Fluid Clarity Hazy Body Fluid Nucleated Cells 1230/cmm Body Fluid Mononuclear WBCs (%) 59% Body Fluid Polymorphonuclear Cells 7% Body Fluid Total RBCs Counted 4200/cmm Body Fluid Other Cells (%) 34% Vancomycin Level Trough 13.4mcg/mL (10.0-20.0) Vancomycin Last Dose Date 07/15/16 Vancomycin Last Dose Time 829 Test 07/16/16 08:15 O2 Saturation 96% (92-99) Arterial Blood pH 7.42 (7.35-7.45) Arterial Blood pCO2 at Patient Temp 48mmHg (35-46) Arterial Blood pO2 at Patient Temp 88mmHg (65-108) Arterial Blood HCO3 30mmol/L (21-28) Arterial Blood Base Excess 5mmol/L (-3-3) FiO2 30 Laboratory Tests Test 07/15/16 12:32 07/15/16 15:00 07/15/16 15:40 07/16/16 08:05 O2 Saturation 95% (92-99) 92% (92-99) Arterial Blood pH 7.27 (7.35-7.45) 7.35 (7.35-7.45) Arterial Blood pCO2 at Patient Temp 62mmHg (35-46) 58mmHg (35-46) Arterial Blood pO2 at Patient Temp 84mmHg (65-108) 63mmHg (65-108) Arterial Blood HCO3 28mmol/L (21-28) 31mmol/L (21-28) Arterial Blood Base Excess 0mmol/L (-3-3) 5mmol/L (-3-3) FiO2 35% 30% Body Fluid Source Pleural Body Fluid Color Yellow Body Fluid Clarity Hazy Body Fluid Nucleated Cells 1230/cmm Body Fluid Mononuclear WBCs (%) 59% Body Fluid Polymorphonuclear Cells 7% Body Fluid Total RBCs Counted 4200/cmm Body Fluid Other Cells (%) 34% Vancomycin Level Trough 13.4mcg/mL (10.0-20.0) Vancomycin Last Dose Date 07/15/16 Vancomycin Last Dose Time 829 Test 07/16/16 08:15 O2 Saturation 96% (92-99) Arterial Blood pH 7.42 (7.35-7.45) Arterial Blood pCO2 at Patient Temp 48mmHg (35-46) Arterial Blood pO2 at Patient Temp 88mmHg (65-108) Arterial Blood HCO3 30mmol/L (21-28) Arterial Blood Base Excess 5mmol/L (-3-3) FiO2 30 Microbiology 07/14/16 Blood Culture - Preliminary, Resulted NO GROWTH AFTER 2 DAYS 07/15/16 Gram Stain - Final, Complete Medications Current Medications Sodium Chloride (Iv Sodium Chloride 0.9% 1000ml Bag) 2,790 ml @ 697.5 mls/ hr Q4H IV ; Start 07/14/16 at 07:58; Stop 07/14/16 at 08:03; Status DC Vancomycin HCl (Vanco Per Pharmacy) 1 each PRN DAILY PRN MC SEE COMMENTS Last administered on 07/14/16 09:16; Start 07/14/16 at 08:00; Stop 07/14/16 at 13:37 ; Status DC Piperacillin Sod/ Tazobactam Sod (Zosyn Per Pharmacy) 1 each PRN DAILY PRN MC SEE COMMENTS; Start 07/14/16 at 08:00; Stop 07/16/16 at 09:13; Status DC Levofloxacin/ Dextrose 1 each 1 each PRN DAILY PRN MC SEE COMMENTS; Start 07/14 at 08:00; Status Cancel Sodium Chloride 1,000 ml @ 697.5 mls/ hr Q1H27M IV Last administered on 08:23; Start 07/14/16 at 08:03; Stop 07/14/16 at 11:58; Status DC Vancomycin HCl 2 gm/Sodium Chloride 500 ml @ 250 mls/hr 1X ONCE IV Last administered on 07/14/16 08:24; Start 07/14/16 at 09:00; Stop 07/14/16 at 10:59 ; Status DC Levofloxacin/ Dextrose 150 ml @ 100 mls/hr 1X ONCE IV Last administered on 10:04; Start 07/14/16 at 08:30; Stop 07/14/16 at 09:59; Status DC Piperacillin Sod/ Tazobactam Sod 4.5 gm/Sodium Chloride 100 ml @ 200 mls/hr 1X ONCE IV Last administered on 07/14/16 08:23; Start 07/14/16 at 08:30; Stop 07/14/16 at 08:59; Status DC Levofloxacin/ Dextrose (LEVAQUIN 750mg PREMIX) 150 ml @ 100 mls/hr Q24H IV ; Start 07/15/16 at 10:00; Stop 07/15/16 at 10:00; Status DC Ondansetron HCl 4 mg 4 mg PRN Q8HRS PRN IV NAUSEA/VOMITING; Start 07/14/16 at 09:15; Stop 07/14/16 at 13:37; Status DC Sodium Chloride (Iv Sodium Chloride 0.9% 1000ml Bag) 1,000 ml @ 75 mls/hr [id number] IV Last administered on 07/14/16 11:55; Start 07/14/16 at 09:11; Stop 07/14/16 at 13:38; Status DC Acetaminophen (Tylenol) 650 mg PRN Q4HRS PRN PO FEVER; Start 07/14/16 at 09:15 ; Stop 07/14/16 at 13:38; Status DC Albuterol/ Ipratropium 3 ml 3 ml RTQID NEB Last administered on 07/15/16 11:13 ; Start 07/14/16 at 12:00; Stop 07/15/16 at 11:59; Status DC Vancomycin HCl/ Sodium Chloride (Iv Sodium Chloride 0.9% 250ml) 250 ml @ 167 mls/hr Q24H IV Last administered on 07/15/16 08:11; Start 07/15/16 at 08:30; Stop 07/16/16 at 09:11; Status DC Vancomycin HCl 1 each 1 each 1X ONCE MC Last administered on 07/16/16 08:00; Start 07/16/16 at 08:00; Stop 07/16/16 at 08:01; Status DC Piperacillin Sod/ Tazobactam Sod/ Sodium Chloride (Zosyn/Iv Sodium Chloride 0.9 % 100ml) 100 ml @ 200 mls/hr Q6HRS IV Last administered on 07/16/16 05:50; Start 07/14/16 at 18:00 Enoxaparin Sodium (Lovenox 40mg Syringe) 40 mg Q24H SQ Last administered on 11:58; Start 07/14/16 at 12:00 Atorvastatin Calcium (Lipitor) 20 mg HS PO Last administered on 07/15/16 22:00 ; Start 07/14/16 at 21:00 Celecoxib (Celebrex) 200 mg DAILY PO Last administered on 07/16/16 09:01; Start 07/14/16 at 14:00 Lisinopril (Prinivil) 20 mg DAILY PO Last administered on 07/16/16 09:03; Start 07/14/16 at 14:00 Metoprolol Tartrate (Lopressor) 100 mg BID PO Last administered on 07/16/16 09 :02; Start 07/14/16 at 21:00 Pantoprazole Sodium (Protonix) 40 mg DAILYAC PO Last administered on 07/16/16 09:02; Start 07/14/16 at 16:30 Acetaminophen (Tylenol) 325 mg PRN Q6HRS PRN PO MILD PAIN / TEMP Last administered on 07/14/16 15:00; Start 07/14/16 at 13:30 Acetaminophen/ Hydrocodone Bitart (Lortab 5/325) 1 tab PRN Q6HRS PRN PO MODERATE TO SEVERE PAIN; Start 07/14/16 at 13:30 Hydralazine HCl (Apresoline) 10 mg PRN Q4HRS PRN IVP ELEVATED BP, SEE COMMENTS ; Start 07/14/16 at 13:30 Ondansetron HCl (Zofran) 4 mg PRN Q8HRS PRN IV NAUSEA/VOMITING; Start 07/14/16 at 13:30 Albuterol Sulfate (Ventolin Neb Soln) 2.5 mg PRN Q4HRS PRN NEB SHORTNESS OF BREATH Last administered on 07/16/16 08:11; Start 07/14/16 at 13:30 Enoxaparin Sodium (Lovenox 40mg Syringe) 40 mg Q24H SQ ; Start 07/14/16 at 14:00 ; Status Cancel Vancomycin HCl 1 each 1 each PRN DAILY PRN MC SEE COMMENTS Last administered on 07/16/16 09:19; Start 07/14/16 at 13:30 Piperacillin Sod/ Tazobactam Sod/ Sodium Chloride (Zosyn/Iv Sodium Chloride 0.9 % 50ml) 50 ml @ 100 mls/hr Q6HRS IV ; Start 07/14/16 at 13:30; Status Cancel Levofloxacin/ Dextrose 1 each 1 each PRN DAILY PRN MC SEE COMMENTS; Start 07/14 at 13:30 Sodium Chloride 1,000 ml @ 75 mls/hr [id number] IV Last administered on 22:00; Start 07/14/16 at 13:30; Stop 07/16/16 at 09:55; Status DC Levofloxacin/ Dextrose (LEVAQUIN 750mg PREMIX) 150 ml @ 100 mls/hr Q48H IV Last administered on 07/15/16 10:42; Start 07/15/16 at 10:00 Furosemide (Lasix) 40 mg 1X ONCE IVP Last administered on 07/15/16 12:00; Start 07/15/16 at 11:00; Stop 07/15/16 at 11:01; Status DC Zinc Sulfate (Orazinc) 220 mg DAILY PO Last administered on 07/16/16 09:01; Start 07/15/16 at 13:00 Ascorbic Acid (Vitamin C) 500 mg DAILY PO Last administered on 07/16/16 09:01 ; Start 07/15/16 at 13:00 Multivitamins/ Calcium (Thera M Plus) 1 tab DAILY PO Last administered on 09:02; Start 07/15/16 at 13:00 Lidocaine/Sodium Bicarbonate (Buffered Lidocaine 1%) 20 ml STK-MED ONCE IJ ; Start 07/15/16 at 14:38; Stop 07/15/16 at 14:39; Status DC Midazolam HCl (Versed) 2 mg STK-MED ONCE .ROUTE ; Start 07/15/16 at 14:54; Stop 07/15/16 at 14:55; Status DC Fentanyl Citrate (Fentanyl 2ml Vial) 100 mcg STK-MED ONCE .ROUTE ; Start at 14:54; Stop 07/15/16 at 14:55; Status DC Lidocaine/Sodium Bicarbonate 3 ml 3 ml 1X ONCE IJ Last administered on 15:53; Start 07/15/16 at 16:00; Stop 07/15/16 at 16:01; Status DC Vancomycin HCl/ Sodium Chloride (Iv Sodium Chloride 0.9% 500ml Bag) 500 ml @ 250 mls/hr Q24H IV Last administered on 07/16/16 09:48; Start 07/16/16 at 10: 00 Albuterol/ Ipratropium (Duoneb) 3 ml RTQID NEB Last administered on 07/16/16t 11:42; Start 07/16/16 at 11:00 Active Scripts Active Reported Atorvastatin Calcium 20 Mg Tablet 20 Mg PO HS Omeprazole 20 Mg Capsule.dr 1 Cap PO DAILY Celebrex (Celecoxib) 200 Mg Capsule 1 Cap PO DAILY Lisinopril-Hctz 20-25 Mg Tab (Lisinopril/Hydrochlorothiazide) 1 Each Tablet 1 Tab PO BID Metoprolol Tartrate 100 Mg Tablet 1 Tab PO BID Vitals/I & O Vital Sign - Last 24 Hours 07/15/16 07/15/16 07/15/16 07/15/16 12:28 15:00 15:24 15:29 Temp 97.4 97.4 Pulse 66 76 73 Resp 30 24 B/P 105/62 Pulse Ox 88 97 95 O2 Delivery BiPAP/CPAP Venturi Mask BiPAP/CPAP BiPAP/CPAP O2 Flow Rate 10.0 15.0 15.0 07/15/16 07/15/16 07/15/16 07/15/16 15:34 15:38 15:42 15:48 Pulse 85 74 91 86 Resp 24 28 Pulse Ox 98 96 96 94 O2 Delivery BiPAP/CPAP BiPAP/CPAP BiPAP/CPAP BiPAP/CPAP O2 Flow Rate 15.0 15.0 15.0 15.0 07/15/16 07/15/16 07/15/16 07/15/16 16:01 16:16 16:31 16:36 Pulse 69 72 85 B/P 103/60 103/64 107/57 O2 Delivery BiPAP/CPAP BiPAP/CPAP BiPAP/CPAP BiPAP/CPAP 07/15/16 07/15/16 07/15/16 07/15/16 16:46 17:16 17:46 19:28 Pulse 72 76 63 B/P 109/65 108/64 112/59 Pulse Ox 92 O2 Delivery BiPAP/CPAP BiPAP/CPAP BiPAP/CPAP BiPAP/CPAP 07/15/16 07/15/16 07/15/16 07/15/16 19:33 19:47 20:00 22:00 Temp 98.0 98.0 Pulse 83 82 Resp 18 B/P 119/61 119/61 Pulse Ox 96 93 O2 Delivery BiPAP/CPAP BiPAP/CPAP Bi-pap 07/15/16 07/15/16 07/16/16 07/16/16 22:14 23:00 01:45 03:22 Temp 98.5 98.4 98.5 98.4 Pulse 83 72 Resp 18 16 B/P 112/63 115/58 Pulse Ox 94 94 90 98 O2 Delivery BiPAP/CPAP BiPAP/CPAP BiPAP/CPAP BiPAP/CPAP 07/16/16 07/16/16 07/16/16 07/16/16 03:30 05:58 07:24 07:55 Temp 98.6 98.6 Pulse 70 Resp 24 B/P 119/63 Pulse Ox 90 97 97 100 O2 Delivery BiPAP/CPAP BiPAP/CPAP BiPAP/CPAP BiPAP/CPAP 07/16/16 07/16/16 07/16/16 07/16/16 08:00 09:02 09:03 11:43 Temp 97.8 97.8 Pulse 92 87 Resp 23 B/P 119/63 125/62 O2 Delivery Bi-pap Nasal Cannula O2 Flow Rate 3.0 07/16/16 11:44 Pulse Ox 82 O2 Delivery Nasal Cannula O2 Flow Rate 2.0 Intake and Output 07/15/16 07/15/16 07/16/16 15:00 23:00 07:00 Intake Total 750 ml 1165 ml Output Total 1200 ml 250 ml Balance -450 ml 915 ml PATITO CARLSON MD Jul 16, 2016 12:31
[2016-07-16] MEDS: ENOXAPARIN 40 MG/0.4 ML DISP.SYRIN. SQ SCH (12:57)
[2016-07-16 15:22] LABS: HCO3 ABG 32 mmol/L (21-28); PO2 ABG 80 mmHg (65-108); SAT O2 ABG 94 % (92-99)
[2016-07-16 15:25] LABS: PH ABG 7.26 (7.35-7.45)
[2016-07-16 15:26] LABS: FIO2 ABG 32; PCO2 ABG 74 mmHg (35-46)
[2016-07-16] MEDS: ATORVASTATIN CALCIUM 20 MG TABLET PO SCH (22:00)
[2016-07-17] MEDS: PIPERACILLIN/TAZOBACTAM 4.5 GM in IV NORMAL SALINE 100ML 100 ML IV SCH ×5 (00:28→23:42)
[2016-07-17 03:50] VITALS: BP 127/62
[2016-07-17 05:47] LABS: BASO % 0 % (0-3); EOS % 3 % (0-3); HEMATOCRIT 23.5 % (39.0-53.0); HEMOGLOBIN 7.4 g/dL (13.0-17.5); LYMPH # 1.3 x10^3/uL (1.0-4.8); LYMPH % 24 % (24-48); MEAN CORPUSCULAR HEMOGLOBIN 30 pg (25-35); MEAN CORPUSCULAR HGB CONC 32 g/dL (31-37); MEAN CORPUSCULAR VOLUME 93 fL (79-100); MONO % 10 % (0-9); NEUT % 63 % (31-73); PLATELET COUNT 169 x10^3/uL (140-400); RED BLOOD COUNT 2.52 x10^6/uL (4.30-5.70); RED CELL DISTRIBUTION WIDTH 16.2 % (11.5-14.5); WHITE BLOOD COUNT 5.5 x10^3/uL (4.0-11.0)
[2016-07-17 06:15] LABS: ALBUMIN/GLOBULIN RATIO 0.6 (1.0-1.7); CREATININE 1.4 mg/dL (0.7-1.3); GFR 48.6; POTASSIUM 3.1 mmol/L (3.5-5.1); TOTAL BILIRUBIN 0.5 mg/dL (0.2-1.0); TOTAL PROTEIN 5.4 g/dL (6.4-8.2)
[2016-07-17 07:00] VITALS: BP 128/65
[2016-07-17] MEDS: IPRATRPIUM/ALBUTEROL 0.5/2.5MG 3 ML NEBU. NEB SCH ×5 (07:35→23:01)
[2016-07-17 07:54] LABS: HCO3 ABG 30 mmol/L (21-28); PCO2 ABG 52 mmHg (35-46); PH ABG 7.38 (7.35-7.45); PO2 ABG 80 mmHg (65-108); SAT O2 ABG 95 % (92-99)
[2016-07-17 07:57] LABS: FIO2 ABG 30
[2016-07-17] MEDS: CELECOXIB 200 MG CAPSULE PO SCH (09:07)
[2016-07-17] MEDS: PANTOPRAZOLE 40 MG TABLET. PO SCH (09:07)
[2016-07-17] MEDS: MULTIVITAMIN with MINERAL TABLET. PO SCH (09:07)
[2016-07-17] MEDS: ASCORBIC ACID 500 MG TABLET PO SCH (09:07)
[2016-07-17] MEDS: LISINOPRIL 20 MG TABLET PO SCH (09:07)
[2016-07-17] MEDS: ZINC SULFATE 220 MG CAPSULE. PO SCH (09:07)
[2016-07-17] MEDS: METOPROLOL TART IMMED RELEASE 50 MG TABLET PO SCH ×2 (09:09→21:57)
[2016-07-17] MEDS: VANCOMYCIN PER PHARMACY MC PRN (09:17)
[2016-07-17 11:00] VITALS: BP 123/63
--- NOTE | 2016-07-17 11:11 | PDOC ---
PULMONARY PROGRESS NOTES Subjective became acidotic again 07/16 while off BIPAP placed babch on BIPAP all night s/p left thoracentesis 07/15 Vitals Vital Signs Date Time Temp Pulse Resp B/P Pulse Ox O2 Delivery O2 Flow Rate FiO2 07/17/16 09:09 94 07/17/16 09:07 128/65 07/17/16 08:00 Venturi Mask 07/17/16 07:35 98 07/17/16 07:00 98.1 24 3.0 98.1 General: Alert, No acute distress Lungs: Wheezing (diffuse) Abdomen: Soft Neuro Exam: Alert Extremities: Other (trace edema) Labs Laboratory Tests Test 07/15/16 12:32 07/15/16 15:00 07/15/16 15:40 07/16/16 08:05 O2 Saturation 95% (92-99) 92% (92-99) Arterial Blood pH 7.27 (7.35-7.45) 7.35 (7.35-7.45) Arterial Blood pCO2 at Patient Temp 62mmHg (35-46) 58mmHg (35-46) Arterial Blood pO2 at Patient Temp 84mmHg (65-108) 63mmHg (65-108) Arterial Blood HCO3 28mmol/L (21-28) 31mmol/L (21-28) Arterial Blood Base Excess 0mmol/L (-3-3) 5mmol/L (-3-3) FiO2 35% 30% Body Fluid Source Pleural Body Fluid Color Yellow Body Fluid Clarity Hazy Body Fluid Nucleated Cells 1230/cmm Body Fluid Mononuclear WBCs (%) 59% Body Fluid Polymorphonuclear Cells 7% Body Fluid Total RBCs Counted 4200/cmm Body Fluid Other Cells (%) 34% Vancomycin Level Trough 13.4mcg/mL (10.0-20.0) Vancomycin Last Dose Date 07/15/16 Vancomycin Last Dose Time 0830 Test 07/16/16 08:15 07/16/16 13:00 07/17/16 05:15 07/17/16 07:45 O2 Saturation 96% (92-99) 94% (92-99) 95% (92-99) Arterial Blood pH 7.42 (7.35-7.45) 7.26 (7.35-7.45) 7.38 (7.35-7.45) Arterial Blood pCO2 at Patient Temp 48mmHg (35-46) 74mmHg (35-46) 52mmHg (35-46) Arterial Blood pO2 at Patient Temp 88mmHg (65-108) 80mmHg (65-108) 80mmHg (65-108) Arterial Blood HCO3 30mmol/L (21-28) 32mmol/L (21-28) 30mmol/L (21-28) Arterial Blood Base Excess 5mmol/L (-3-3) 4mmol/L (-3-3) 5mmol/L (-3-3) FiO2 30 32 30 White Blood Count 5.5x10^3/uL (4.0-11.0) Red Blood Count 2.52x10^6/uL (4.30-5.70) Hemoglobin 7.4g/dL (13.0-17.5) Hematocrit 23.5% (39.0-53.0) Mean Corpuscular Volume 93fL (79-100) Mean Corpuscular Hemoglobin 30pg (25-35) Mean Corpuscular Hemoglobin Concent 32g/dL (31-37) Red Cell Distribution Width 16.2% (11.5-14.5) Platelet Count 169x10^3/uL (140-400) Neutrophils (%) (Auto) 63% (31-73) Lymphocytes (%) (Auto) 24% (24-48) Monocytes (%) (Auto) 10% (0-9) Eosinophils (%) (Auto) 3% (0-3) Basophils (%) (Auto) 0% (0-3) Neutrophils # (Auto) 3.4x10^3uL (1.8-7.7) Lymphocytes # (Auto) 1.3x10^3/uL (1.0-4.8) Monocytes # (Auto) 0.6x10^3/uL (0.0-1.1) Eosinophils # (Auto) 0.2x10^3/uL (0.0-0.7) Basophils # (Auto) 0.0x10^3/uL (0.0-0.2) Sodium Level 150mmol/L (136-145) Potassium Level 3.1mmol/L (3.5-5.1) Chloride Level 113mmol/L (98-107) Carbon Dioxide Level 34mmol/L (21-32) Anion Gap 3 (6-14) Blood Urea Nitrogen 22mg/dL (8-26) Creatinine 1.4mg/dL (0.7-1.3) Estimated GFR (Cockcroft-Gault) 48.6 BUN/Creatinine Ratio 16 (6-20) Glucose Level 106mg/dL (70-99) Calcium Level 8.0mg/dL (8.5-10.1) Total Bilirubin 0.5mg/dL (0.2-1.0) Aspartate Amino Transf (AST/SGOT) 23U/L (15-37) Alanine Aminotransferase (ALT/SGPT) 15U/L (16-63) Alkaline Phosphatase 94U/L (46-116) Total Protein 5.4g/dL (6.4-8.2) Albumin 2.0g/dL (3.4-5.0) Albumin/Globulin Ratio 0.6 (1.0-1.7) Laboratory Tests Test 07/16/16 13:00 07/17/16 05:15 07/17/16 07:45 O2 Saturation 94% (92-99) 95% (92-99) Arterial Blood pH 7.26 (7.35-7.45) 7.38 (7.35-7.45) Arterial Blood pCO2 at Patient Temp 74mmHg (35-46) 52mmHg (35-46) Arterial Blood pO2 at Patient Temp 80mmHg (65-108) 80mmHg (65-108) Arterial Blood HCO3 32mmol/L (21-28) 30mmol/L (21-28) Arterial Blood Base Excess 4mmol/L (-3-3) 5mmol/L (-3-3) FiO2 32 30 White Blood Count 5.5x10^3/uL (4.0-11.0) Red Blood Count 2.52x10^6/uL (4.30-5.70) Hemoglobin 7.4g/dL (13.0-17.5) Hematocrit 23.5% (39.0-53.0) Mean Corpuscular Volume 93fL (79-100) Mean Corpuscular Hemoglobin 30pg (25-35) Mean Corpuscular Hemoglobin Concent 32g/dL (31-37) Red Cell Distribution Width 16.2% (11.5-14.5) Platelet Count 169x10^3/uL (140-400) Neutrophils (%) (Auto) 63% (31-73) Lymphocytes (%) (Auto) 24% (24-48) Monocytes (%) (Auto) 10% (0-9) Eosinophils (%) (Auto) 3% (0-3) Basophils (%) (Auto) 0% (0-3) Neutrophils # (Auto) 3.4x10^3uL (1.8-7.7) Lymphocytes # (Auto) 1.3x10^3/uL (1.0-4.8) Monocytes # (Auto) 0.6x10^3/uL (0.0-1.1) Eosinophils # (Auto) 0.2x10^3/uL (0.0-0.7) Basophils # (Auto) 0.0x10^3/uL (0.0-0.2) Sodium Level 150mmol/L (136-145) Potassium Level 3.1mmol/L (3.5-5.1) Chloride Level 113mmol/L (98-107) Carbon Dioxide Level 34mmol/L (21-32) Anion Gap 3 (6-14) Blood Urea Nitrogen 22mg/dL (8-26) Creatinine 1.4mg/dL (0.7-1.3) Estimated GFR (Cockcroft-Gault) 48.6 BUN/Creatinine Ratio 16 (6-20) Glucose Level 106mg/dL (70-99) Calcium Level 8.0mg/dL (8.5-10.1) Total Bilirubin 0.5mg/dL (0.2-1.0) Aspartate Amino Transf (AST/SGOT) 23U/L (15-37) Alanine Aminotransferase (ALT/SGPT) 15U/L (16-63) Alkaline Phosphatase 94U/L (46-116) Total Protein 5.4g/dL (6.4-8.2) Albumin 2.0g/dL (3.4-5.0) Albumin/Globulin Ratio 0.6 (1.0-1.7) Medications Active Scripts Medications Dose Route/Sig Days Date Category Atorvastatin Calcium 20 Mg Tablet 20 Mg PO HS 06/12/16 Reported Omeprazole 20 Mg Capsule.dr 1 Cap PO DAILY 06/12/16 Reported Celebrex (Celecoxib) 200 Mg Capsule 1 Cap PO DAILY 06/12/16 Reported Lisinopril-Hctz 20-25 Mg Tab (Lisinopril/Hydrochlorothiazide) 1 Each Tablet 1 Tab PO BID 06/12/16 Reported Metoprolol Tartrate 100 Mg Tablet 1 Tab PO BID 06/12/16 Reported Comments CXR 07/16 resolved effusions Impression . 1. Acute hypoxic and hypercapnic respiratory failure secondary to healthcare-associated pneumonia involving the left lung./ pleural effusion/ and now Bronchospasm 2. Possible underlying chronic obstructive pulmonary disease. 3. Recent hip surgery. 4. Influenza screen negative. 5. Abnormal arterial blood gases consistent with [id number] hypercapnia. 6. Ct chest reviewed/ moderate left effusion/ small right, suspect due to low oncotic pressure Plan . 1. Continue with PRN BiPAP/ He is getting tired/ will try VM 2. Follow ABGs much improved. will repeat today off BIPAP 3. We will continue broad-spectrum antibiotics. 4. Follow blood cultures. 5. s/p left thoracentesis. follow results 6. Treat Bronchospasm aggressively with q 4 hr DuoNebs./ add IV steroids/ pulmocort/ holding metoprolol 7. Discussed RN. 8. Will discuss with palliative option in LATRELL Lacey MD Jul 17, 2016 11:11
[2016-07-17] MEDS: BUDESONIDE 0.5 MG/2 ML NEBU NEB SCH ×2 (11:30→19:57)
[2016-07-17] MEDS: methylPREDNISolone SOD SUCC PF 125 MG/2 ML VIAL. IV SCH ×3 (11:57→23:42)
[2016-07-17] MEDS: VANCOMYCIN 1.5 GM in IV NORMAL SALINE 500ML BAG 500 ML IV SCH (11:58)
[2016-07-17] MEDS: ENOXAPARIN 40 MG/0.4 ML DISP.SYRIN. SQ SCH (12:00)
[2016-07-17] MEDS ORDERED: ONDANSETRON PF 4 MG/2 ML VIAL. IV PRN (14:11)
[2016-07-17] MEDS ORDERED: MORPHINE SULFATE 2 MG/ML DISP.SYRIN. IV PRN (14:15)
[2016-07-17 15:00] VITALS: BP 134/68
[2016-07-17 15:13] LABS: HCO3 ABG 28 mmol/L (21-28); PO2 ABG 111 mmHg (65-108); SAT O2 ABG 97 % (92-99)
--- NOTE | 2016-07-17 15:32 | PDOC ---
PROGRESS NOTES Chief Complaint Chief Complaint 1. Acute hypoxic and hypercapnic respiratory failure needing NIPPV 2. COPD, w. acute bronchitis 3. Recent hip surgery. hip pain 4. likely chronic hypercapnic failure 5. moderate left effusion 6. dehydration, acute vasomotor yesterday, 7. Hypokalemia 8. Hypernatremia likely sec to poor PO 7. Precipitous drop hgb/anemia 8/ s/p L thoracentesis History of Present Illness History of Present Illness off bipap few hrs Back again now on bipap Poor PO Pt wants to have palliative involved seemingly DTr some denial but realistic Hgb 7 plus - has been dropping past few days K also low 3.1 Na 150s Palliative talks per pulmo and RN PLAN: PAlliative care consult ROSA melara NO transfusions today pls Kcl 20 IOV x 2 Recheckl MARIA ALEJANDRA and ROSA melara Dw Rn and dtr and RT Vitals Vitals Vital Signs Date Time Temp Pulse Resp B/P Pulse Ox O2 Delivery O2 Flow Rate FiO2 07/17/16 15:24 95 BiPAP/CPAP 07/17/16 11:30 9.0 07/17/16 11:00 98.3 72 20 123/63 98.3 Physical Exam General: Alert, Cooperative, mild distress Heart: Regular rate, No murmurs Lungs: Wheezing (diffuse) Abdomen: Normal bowel sounds, No tenderness Extremities: No clubbing, No cyanosis Skin: No rashes, No significant lesion Labs LABS Laboratory Tests Test 07/17/16 05:15 07/17/16 07:45 White Blood Count 5.5x10^3/uL (4.0-11.0) Red Blood Count 2.52x10^6/uL (4.30-5.70) Hemoglobin 7.4g/dL (13.0-17.5) Hematocrit 23.5% (39.0-53.0) Mean Corpuscular Volume 93fL (79-100) Mean Corpuscular Hemoglobin 30pg (25-35) Mean Corpuscular Hemoglobin Concent 32g/dL (31-37) Red Cell Distribution Width 16.2% (11.5-14.5) Platelet Count 169x10^3/uL (140-400) Neutrophils (%) (Auto) 63% (31-73) Lymphocytes (%) (Auto) 24% (24-48) Monocytes (%) (Auto) 10% (0-9) Eosinophils (%) (Auto) 3% (0-3) Basophils (%) (Auto) 0% (0-3) Neutrophils # (Auto) 3.4x10^3uL (1.8-7.7) Lymphocytes # (Auto) 1.3x10^3/uL (1.0-4.8) Monocytes # (Auto) 0.6x10^3/uL (0.0-1.1) Eosinophils # (Auto) 0.2x10^3/uL (0.0-0.7) Basophils # (Auto) 0.0x10^3/uL (0.0-0.2) Sodium Level 150mmol/L (136-145) Potassium Level 3.1mmol/L (3.5-5.1) Chloride Level 113mmol/L (98-107) Carbon Dioxide Level 34mmol/L (21-32) Anion Gap 3 (6-14) Blood Urea Nitrogen 22mg/dL (8-26) Creatinine 1.4mg/dL (0.7-1.3) Estimated GFR (Cockcroft-Gault) 48.6 BUN/Creatinine Ratio 16 (6-20) Glucose Level 106mg/dL (70-99) Calcium Level 8.0mg/dL (8.5-10.1) Total Bilirubin 0.5mg/dL (0.2-1.0) Aspartate Amino Transf (AST/SGOT) 23U/L (15-37) Alanine Aminotransferase (ALT/SGPT) 15U/L (16-63) Alkaline Phosphatase 94U/L (46-116) Total Protein 5.4g/dL (6.4-8.2) Albumin 2.0g/dL (3.4-5.0) Albumin/Globulin Ratio 0.6 (1.0-1.7) O2 Saturation 95% (92-99) Arterial Blood pH 7.38 (7.35-7.45) Arterial Blood pCO2 at Patient Temp 52mmHg (35-46) Arterial Blood pO2 at Patient Temp 80mmHg (65-108) Arterial Blood HCO3 30mmol/L (21-28) Arterial Blood Base Excess 5mmol/L (-3-3) FiO2 30 Review of Systems Review of Systems limited on bipap Assessment and Plan Assessmemt and Plan PAlliative care consult [facility] NO transfusions today pls Kcl 20 IOV x 2 Recheck BMP and HH [facility] Dw Rn and dtr and RT Problems Medical Problems: (1) Acute on chronic respiratory failure Status: Acute (2) Congestive heart failure Status: Acute (3) Healthcare-associated pneumonia Status: Acute (4) Normocytic anemia Status: Acute (5) Sepsis Status: Acute (6) Severe protein-calorie malnutrition Status: Acute Problems: Comment Review of Relevant I have reviewed the following items miguel ángel (where applicable) has been applied. Labs Laboratory Tests Test 07/15/16 15:40 07/16/16 08:05 07/16/16 08:15 07/16/16 13:00 Body Fluid Source Pleural Body Fluid Color Yellow Body Fluid Clarity Hazy Body Fluid Nucleated Cells 1230/cmm Body Fluid Mononuclear WBCs (%) 59% Body Fluid Polymorphonuclear Cells 7% Body Fluid Total RBCs Counted 4200/cmm Body Fluid Other Cells (%) 34% Vancomycin Level Trough 13.4mcg/mL (10.0-20.0) Vancomycin Last Dose Date 07/15/16 Vancomycin Last Dose Time 0830 O2 Saturation 96% (92-99) 94% (92-99) Arterial Blood pH 7.42 (7.35-7.45) 7.26 (7.35-7.45) Arterial Blood pCO2 at Patient Temp 48mmHg (35-46) 74mmHg (35-46) Arterial Blood pO2 at Patient Temp 88mmHg (65-108) 80mmHg (65-108) Arterial Blood HCO3 30mmol/L (21-28) 32mmol/L (21-28) Arterial Blood Base Excess 5mmol/L (-3-3) 4mmol/L (-3-3) FiO2 30 32 Test 07/17/16 05:15 07/17/16 07:45 White Blood Count 5.5x10^3/uL (4.0-11.0) Red Blood Count 2.52x10^6/uL (4.30-5.70) Hemoglobin 7.4g/dL (13.0-17.5) Hematocrit 23.5% (39.0-53.0) Mean Corpuscular Volume 93fL (79-100) Mean Corpuscular Hemoglobin 30pg (25-35) Mean Corpuscular Hemoglobin Concent 32g/dL (31-37) Red Cell Distribution Width 16.2% (11.5-14.5) Platelet Count 169x10^3/uL (140-400) Neutrophils (%) (Auto) 63% (31-73) Lymphocytes (%) (Auto) 24% (24-48) Monocytes (%) (Auto) 10% (0-9) Eosinophils (%) (Auto) 3% (0-3) Basophils (%) (Auto) 0% (0-3) Neutrophils # (Auto) 3.4x10^3uL (1.8-7.7) Lymphocytes # (Auto) 1.3x10^3/uL (1.0-4.8) Monocytes # (Auto) 0.6x10^3/uL (0.0-1.1) Eosinophils # (Auto) 0.2x10^3/uL (0.0-0.7) Basophils # (Auto) 0.0x10^3/uL (0.0-0.2) Sodium Level 150mmol/L (136-145) Potassium Level 3.1mmol/L (3.5-5.1) Chloride Level 113mmol/L (98-107) Carbon Dioxide Level 34mmol/L (21-32) Anion Gap 3 (6-14) Blood Urea Nitrogen 22mg/dL (8-26) Creatinine 1.4mg/dL (0.7-1.3) Estimated GFR (Cockcroft-Gault) 48.6 BUN/Creatinine Ratio 16 (6-20) Glucose Level 106mg/dL (70-99) Calcium Level 8.0mg/dL (8.5-10.1) Total Bilirubin 0.5mg/dL (0.2-1.0) Aspartate Amino Transf (AST/SGOT) 23U/L (15-37) Alanine Aminotransferase (ALT/SGPT) 15U/L (16-63) Alkaline Phosphatase 94U/L (46-116) Total Protein 5.4g/dL (6.4-8.2) Albumin 2.0g/dL (3.4-5.0) Albumin/Globulin Ratio 0.6 (1.0-1.7) O2 Saturation 95% (92-99) Arterial Blood pH 7.38 (7.35-7.45) Arterial Blood pCO2 at Patient Temp 52mmHg (35-46) Arterial Blood pO2 at Patient Temp 80mmHg (65-108) Arterial Blood HCO3 30mmol/L (21-28) Arterial Blood Base Excess 5mmol/L (-3-3) FiO2 30 Laboratory Tests Test 07/17/16 05:15 07/17/16 07:45 White Blood Count 5.5x10^3/uL (4.0-11.0) Red Blood Count 2.52x10^6/uL (4.30-5.70) Hemoglobin 7.4g/dL (13.0-17.5) Hematocrit 23.5% (39.0-53.0) Mean Corpuscular Volume 93fL (79-100) Mean Corpuscular Hemoglobin 30pg (25-35) Mean Corpuscular Hemoglobin Concent 32g/dL (31-37) Red Cell Distribution Width 16.2% (11.5-14.5) Platelet Count 169x10^3/uL (140-400) Neutrophils (%) (Auto) 63% (31-73) Lymphocytes (%) (Auto) 24% (24-48) Monocytes (%) (Auto) 10% (0-9) Eosinophils (%) (Auto) 3% (0-3) Basophils (%) (Auto) 0% (0-3) Neutrophils # (Auto) 3.4x10^3uL (1.8-7.7) Lymphocytes # (Auto) 1.3x10^3/uL (1.0-4.8) Monocytes # (Auto) 0.6x10^3/uL (0.0-1.1) Eosinophils # (Auto) 0.2x10^3/uL (0.0-0.7) Basophils # (Auto) 0.0x10^3/uL (0.0-0.2) Sodium Level 150mmol/L (136-145) Potassium Level 3.1mmol/L (3.5-5.1) Chloride Level 113mmol/L (98-107) Carbon Dioxide Level 34mmol/L (21-32) Anion Gap 3 (6-14) Blood Urea Nitrogen 22mg/dL (8-26) Creatinine 1.4mg/dL (0.7-1.3) Estimated GFR (Cockcroft-Gault) 48.6 BUN/Creatinine Ratio 16 (6-20) Glucose Level 106mg/dL (70-99) Calcium Level 8.0mg/dL (8.5-10.1) Total Bilirubin 0.5mg/dL (0.2-1.0) Aspartate Amino Transf (AST/SGOT) 23U/L (15-37) Alanine Aminotransferase (ALT/SGPT) 15U/L (16-63) Alkaline Phosphatase 94U/L (46-116) Total Protein 5.4g/dL (6.4-8.2) Albumin 2.0g/dL (3.4-5.0) Albumin/Globulin Ratio 0.6 (1.0-1.7) O2 Saturation 95% (92-99) Arterial Blood pH 7.38 (7.35-7.45) Arterial Blood pCO2 at Patient Temp 52mmHg (35-46) Arterial Blood pO2 at Patient Temp 80mmHg (65-108) Arterial Blood HCO3 30mmol/L (21-28) Arterial Blood Base Excess 5mmol/L (-3-3) FiO2 30 Microbiology 07/14/16 Blood Culture - Preliminary, Resulted NO GROWTH AFTER 3 DAYS 07/15/16 Gram Stain - Final, Complete Medications Current Medications Sodium Chloride (Iv Sodium Chloride 0.9% 1000ml Bag) 2,790 ml @ 697.5 mls/ hr Q4H IV ; Start 07/14/16 at 07:58; Stop 07/14/16 at 08:03; Status DC Vancomycin HCl (Vanco Per Pharmacy) 1 each PRN DAILY PRN MC SEE COMMENTS Last administered on 07/14/16 09:16; Start 07/14/16 at 08:00; Stop 07/14/16 at 13:37 ; Status DC Piperacillin Sod/ Tazobactam Sod (Zosyn Per Pharmacy) 1 each PRN DAILY PRN MC SEE COMMENTS; Start 07/14/16 at 08:00; Stop 07/16/16 at 09:13; Status DC Levofloxacin/ Dextrose 1 each 1 each PRN DAILY PRN MC SEE COMMENTS; Start 07/14 at 08:00; Status Cancel Sodium Chloride 1,000 ml @ 697.5 mls/ hr Q1H27M IV Last administered on 08:23; Start 07/14/16 at 08:03; Stop 07/14/16 at 11:58; Status DC Vancomycin HCl 2 gm/Sodium Chloride 500 ml @ 250 mls/hr 1X ONCE IV Last administered on 07/14/16 08:24; Start 07/14/16 at 09:00; Stop 07/14/16 at 10:59 ; Status DC Levofloxacin/ Dextrose 150 ml @ 100 mls/hr 1X ONCE IV Last administered on 10:04; Start 07/14/16 at 08:30; Stop 07/14/16 at 09:59; Status DC Piperacillin Sod/ Tazobactam Sod 4.5 gm/Sodium Chloride 100 ml @ 200 mls/hr 1X ONCE IV Last administered on 07/14/16 08:23; Start 07/14/16 at 08:30; Stop 07/14/16 at 08:59; Status DC Levofloxacin/ Dextrose (LEVAQUIN 750mg PREMIX) 150 ml @ 100 mls/hr Q24H IV ; Start 07/15/16 at 10:00; Stop 07/15/16 at 10:00; Status DC Ondansetron HCl 4 mg 4 mg PRN Q8HRS PRN IV NAUSEA/VOMITING; Start 07/14/16 at 09:15; Stop 07/14/16 at 13:37; Status DC Sodium Chloride (Iv Sodium Chloride 0.9% 1000ml Bag) 1,000 ml @ 75 mls/hr [id number] IV Last administered on 07/14/16 11:55; Start 07/14/16 at 09:11; Stop 07/14/16 at 13:38; Status DC Acetaminophen (Tylenol) 650 mg PRN Q4HRS PRN PO FEVER; Start 07/14/16 at 09:15 ; Stop 07/14/16 at 13:38; Status DC Albuterol/ Ipratropium 3 ml 3 ml RTQID NEB Last administered on 07/15/16 11:13 ; Start 07/14/16 at 12:00; Stop 07/15/16 at 11:59; Status DC Vancomycin HCl/ Sodium Chloride (Iv Sodium Chloride 0.9% 250ml) 250 ml @ 167 mls/hr Q24H IV Last administered on 07/15/16 08:11; Start 07/15/16 at 08:30; Stop 07/16/16 at 09:11; Status DC Vancomycin HCl 1 each 1 each 1X ONCE MC Last administered on 07/16/16 08:00; Start 07/16/16 at 08:00; Stop 07/16/16 at 08:01; Status DC Piperacillin Sod/ Tazobactam Sod/ Sodium Chloride (Zosyn/Iv Sodium Chloride 0.9 % 100ml) 100 ml @ 200 mls/hr Q6HRS IV Last administered on 07/17/16 13:47; Start 07/14/16 at 18:00 Enoxaparin Sodium (Lovenox 40mg Syringe) 40 mg Q24H SQ Last administered on 12:57; Start 07/14/16 at 12:00 Atorvastatin Calcium (Lipitor) 20 mg HS PO Last administered on 07/16/16 22:00 ; Start 07/14/16 at 21:00 Celecoxib (Celebrex) 200 mg DAILY PO Last administered on 07/17/16 09:07; Start 07/14/16 at 14:00 Lisinopril (Prinivil) 20 mg DAILY PO Last administered on 07/17/16 09:07; Start 07/14/16 at 14:00 Metoprolol Tartrate (Lopressor) 100 mg BID PO Last administered on 07/17/16 09 :09; Start 07/14/16 at 21:00 Pantoprazole Sodium (Protonix) 40 mg DAILYAC PO Last administered on 07/17/16 09:07; Start 07/14/16 at 16:30 Acetaminophen (Tylenol) 325 mg PRN Q6HRS PRN PO MILD PAIN / TEMP Last administered on 07/14/16 15:00; Start 07/14/16 at 13:30 Acetaminophen/ Hydrocodone Bitart (Lortab 5/325) 1 tab PRN Q6HRS PRN PO MODERATE TO SEVERE PAIN; Start 07/14/16 at 13:30 Hydralazine HCl (Apresoline) 10 mg PRN Q4HRS PRN IVP ELEVATED BP, SEE COMMENTS ; Start 07/14/16 at 13:30 Ondansetron HCl (Zofran) 4 mg PRN Q8HRS PRN IV NAUSEA/VOMITING; Start 07/14/16 at 13:30; Stop 07/17/16 at 14:13; Status DC Albuterol Sulfate (Ventolin Neb Soln) 2.5 mg PRN Q4HRS PRN NEB SHORTNESS OF BREATH Last administered on 07/16/16 08:11; Start 07/14/16 at 13:30 Enoxaparin Sodium (Lovenox 40mg Syringe) 40 mg Q24H SQ ; Start 07/14/16 at 14:00 ; Status Cancel Vancomycin HCl 1 each 1 each PRN DAILY PRN MC SEE COMMENTS Last administered on 07/17/16 09:17; Start 07/14/16 at 13:30 Piperacillin Sod/ Tazobactam Sod/ Sodium Chloride (Zosyn/Iv Sodium Chloride 0.9 % 50ml) 50 ml @ 100 mls/hr Q6HRS IV ; Start 07/14/16 at 13:30; Status Cancel Levofloxacin/ Dextrose 1 each 1 each PRN DAILY PRN MC SEE COMMENTS; Start 07/14 at 13:30; Stop 07/16/16 at 14:49; Status DC Sodium Chloride 1,000 ml @ 75 mls/hr [id number] IV Last administered on 22:00; Start 07/14/16 at 13:30; Stop 07/16/16 at 09:55; Status DC Levofloxacin/ Dextrose (LEVAQUIN 750mg PREMIX) 150 ml @ 100 mls/hr Q48H IV Last administered on 07/17/16 10:06; Start 07/15/16 at 10:00 Furosemide (Lasix) 40 mg 1X ONCE IVP Last administered on 07/15/16 12:00; Start 07/15/16 at 11:00; Stop 07/15/16 at 11:01; Status DC Zinc Sulfate (Orazinc) 220 mg DAILY PO Last administered on 07/17/16 09:07; Start 07/15/16 at 13:00 Ascorbic Acid (Vitamin C) 500 mg DAILY PO Last administered on 07/17/16 09:07 ; Start 07/15/16 at 13:00 Multivitamins/ Calcium (Thera M Plus) 1 tab DAILY PO Last administered on 09:07; Start 07/15/16 at 13:00 Lidocaine/Sodium Bicarbonate (Buffered Lidocaine 1%) 20 ml [employer] ONCE IJ ; Start 07/15/16 at 14:38; Stop 07/15/16 at 14:39; Status DC Midazolam HCl (Versed) 2 mg STK-MED ONCE .ROUTE ; Start 07/15/16 at 14:54; Stop 07/15/16 at 14:55; Status DC Fentanyl Citrate (Fentanyl 2ml Vial) 100 mcg STK-MED ONCE .ROUTE ; Start at 14:54; Stop 07/15/16 at 14:55; Status DC Lidocaine/Sodium Bicarbonate 3 ml 3 ml 1X ONCE IJ Last administered on 15:53; Start 07/15/16 at 16:00; Stop 07/15/16 at 16:01; Status DC Vancomycin HCl/ Sodium Chloride (Iv Sodium Chloride 0.9% 500ml Bag) 500 ml @ 250 mls/hr Q24H IV Last administered on 07/17/16 11:58; Start 07/16/16 at 10: 00 Albuterol/ Ipratropium (Duoneb) 3 ml RTQID NEB Last administered on 07/17/16 07:35; Start 07/16/16 at 11:00; Stop 07/17/16 at 10:00; Status DC Albuterol/ Ipratropium (Duoneb) 3 ml Q4HRS NEB Last administered on 07/17/16 14:59; Start 07/17/16 at 12:00 Methylprednisolone Sodium Succinate (Solu-Medrol 125mg Vial) 60 mg Q6HRS IV Last administered on 07/17/16 11:57; Start 07/17/16 at 11:00 Budesonide (Pulmicort) 0.5 mg RTBID NEB Last administered on 07/17/16 11:30; Start 07/17/16 at 12:00 Ondansetron HCl (Zofran) 4 mg PRN Q6HRS PRN IV NAUSEA/VOMITING; Start 07/17/16 at 14:11 Morphine Sulfate 1 mg PRN Q2HR PRN IV PAIN; Start 07/17/16 at 14:15 Active Scripts Active Reported Atorvastatin Calcium 20 Mg Tablet 20 Mg PO HS Omeprazole 20 Mg Capsule.dr 1 Cap PO DAILY Celebrex (Celecoxib) 200 Mg Capsule 1 Cap PO DAILY Lisinopril-Hctz 20-25 Mg Tab (Lisinopril/Hydrochlorothiazide) 1 Each Tablet 1 Tab PO BID Metoprolol Tartrate 100 Mg Tablet 1 Tab PO BID Vitals/I & O Vital Sign - Last 24 Hours 07/16/16 07/16/16 07/16/16 07/16/16 17:45 19:36 19:45 20:00 Temp 98.2 98.2 Pulse 82 Resp 16 B/P 102/44 Pulse Ox 96 97 97 O2 Delivery BiPAP/CPAP BiPAP/CPAP BiPAP/CPAP Bi-pap O2 Flow Rate 3.0 07/16/16 07/16/16 07/16/16 07/16/16 21:17 22:00 23:15 23:42 Temp 97.4 97.4 Pulse 86 71 Resp 13 B/P 102/44 131/66 Pulse Ox 95 90 94 O2 Delivery BiPAP/CPAP BiPAP/CPAP O2 Flow Rate 3.0 07/17/16 07/17/16 07/17/16 07/17/16 01:35 03:40 03:50 05:40 Temp 98.3 98.3 Pulse 97 Resp 22 B/P 127/62 Pulse Ox 94 95 95 95 O2 Delivery BiPAP/CPAP BiPAP/CPAP BiPAP/CPAP BiPAP/CPAP O2 Flow Rate 3.0 07/17/16 07/17/16 07/17/16 07/17/16 07:00 07:35 08:00 09:07 Temp 98.1 98.1 Pulse 67 Resp 24 B/P 128/65 128/65 Pulse Ox 100 98 O2 Delivery BiPAP/CPAP BiPAP/CPAP Venturi Mask O2 Flow Rate 3.0 07/17/16 07/17/16 07/17/16 07/17/16 09:09 11:00 11:30 15:24 Temp 98.3 98.3 Pulse 94 72 Resp 20 B/P 123/63 Pulse Ox 94 91 95 O2 Delivery BiPAP/CPAP Venturi Mask BiPAP/CPAP O2 Flow Rate 3.0 9.0 Intake and Output 07/16/16 07/16/16 07/17/16 15:00 23:00 07:00 Intake Total 450 ml 300 ml Output Total 200 ml 600 ml 300 ml Balance -200 ml -150 ml 0 ml URSULA GONZALEZ MD Jul 17, 2016 15:32
[2016-07-17 16:17] LABS: PH ABG 7.22 (7.35-7.45)
[2016-07-17 16:18] LABS: FIO2 ABG 35; PCO2 ABG 71 mmHg (35-46)
[2016-07-17] MEDS: POTASSIUM CHLORIDE 10MEQ 100 ML IV SCH ×4 (16:50→22:33)
[2016-07-17 19:45] VITALS: BP 131/68
[2016-07-17] MEDS: ATORVASTATIN CALCIUM 20 MG TABLET PO SCH (21:56)
[2016-07-17 23:05] VITALS: BP 139/78
[2016-07-18 02:34] VITALS: BP 129/74
[2016-07-18] MEDS: IPRATRPIUM/ALBUTEROL 0.5/2.5MG 3 ML NEBU. NEB SCH ×5 (03:25→22:34)
[2016-07-18 05:18] LABS: HEMATOCRIT 27.2 % (39.0-53.0); HEMOGLOBIN 8.7 g/dL (13.0-17.5)
[2016-07-18 05:48] LABS: CALCIUM 8.5 mg/dL (8.5-10.1); CREATININE 1.2 mg/dL (0.7-1.3); GFR 58.1
[2016-07-18] MEDS: methylPREDNISolone SOD SUCC PF 125 MG/2 ML VIAL. IV SCH ×4 (06:23→23:57)
[2016-07-18] MEDS: PIPERACILLIN/TAZOBACTAM 4.5 GM in IV NORMAL SALINE 100ML 100 ML IV SCH ×4 (06:24→23:57)
[2016-07-18] MEDS: PANTOPRAZOLE 40 MG TABLET. PO SCH (06:24)
[2016-07-18 07:00] VITALS: BP 151/76
[2016-07-18] MEDS: BUDESONIDE 0.5 MG/2 ML NEBU NEB SCH ×2 (08:00→22:33)
[2016-07-18] MEDS: CELECOXIB 200 MG CAPSULE PO SCH (08:35)
[2016-07-18] MEDS: ASCORBIC ACID 500 MG TABLET PO SCH (08:35)
[2016-07-18] MEDS: MULTIVITAMIN with MINERAL TABLET. PO SCH (08:35)
[2016-07-18] MEDS: METOPROLOL TART IMMED RELEASE 50 MG TABLET PO SCH ×2 (08:36→21:54)
[2016-07-18] MEDS: LISINOPRIL 20 MG TABLET PO SCH (08:36)
[2016-07-18] MEDS: ZINC SULFATE 220 MG CAPSULE. PO SCH (08:36)
[2016-07-18] MEDS: VANCOMYCIN PER PHARMACY MC PRN (08:54)
[2016-07-18] MEDS: VANCOMYCIN 1.5 GM in IV NORMAL SALINE 500ML BAG 500 ML IV SCH (09:46)
[2016-07-18 10:39] VITALS: BP 133/76
--- NOTE | 2016-07-18 11:45 | PDOC ---
PROGRESS NOTES Chief Complaint Chief Complaint 1. Acute hypoxic and hypercapnic respiratory failure needing NIPPV 2. COPD, w. acute bronchitis 3. Recent hip surgery. hip pain 4. likely chronic hypercapnic failure 5. moderate left effusion 6. dehydration, acute vasomotor yesterday, 7. Hypokalemia 8. Hypernatremia likely sec to poor PO 7. Precipitous drop hgb/anemia 8/ s/p L thoracentesis History of Present Illness History of Present Illness HAving palliative meeting now chart reviewed Pt DNR PLAN: Await [facility] mt decisions Vitals Vitals Vital Signs Date Time Temp Pulse Resp B/P Pulse Ox O2 Delivery O2 Flow Rate FiO2 07/18/16 10:39 99.6 78 20 133/76 93 Nasal Cannula 99.6 07/17/16 11:30 9.0 Physical Exam General: Alert, Cooperative, mild distress Heart: Regular rate, No murmurs Lungs: Wheezing (diffuse) Abdomen: Normal bowel sounds, No tenderness Extremities: No clubbing, No cyanosis Skin: No rashes, No significant lesion Labs LABS Laboratory Tests Test 07/17/16 15:00 07/18/16 04:20 O2 Saturation 97% (92-99) Arterial Blood pH 7.22 (7.35-7.45) Arterial Blood pCO2 at Patient Temp 71mmHg (35-46) Arterial Blood pO2 at Patient Temp 111mmHg (65-108) Arterial Blood HCO3 28mmol/L (21-28) Arterial Blood Base Excess -1mmol/L (-3-3) FiO2 35 Hemoglobin 8.7g/dL (13.0-17.5) Hematocrit 27.2% (39.0-53.0) Mean Corpuscular Hemoglobin Concent 32g/dL (31-37) Sodium Level 150mmol/L (136-145) Potassium Level 4.0mmol/L (3.5-5.1) Chloride Level 112mmol/L (98-107) Carbon Dioxide Level 34mmol/L (21-32) Anion Gap 4 (6-14) Blood Urea Nitrogen 19mg/dL (8-26) Creatinine 1.2mg/dL (0.7-1.3) Estimated GFR (Cockcroft-Gault) 58.1 Glucose Level 169mg/dL (70-99) Calcium Level 8.5mg/dL (8.5-10.1) Review of Systems Review of Systems cant be obtained - having a [facility] mtg Assessment and Plan Assessmemt and Plan Problems Medical Problems: (1) Acute on chronic respiratory failure Status: Acute (2) Congestive heart failure Status: Acute (3) Healthcare-associated pneumonia Status: Acute (4) Normocytic anemia Status: Acute (5) Sepsis Status: Acute (6) Severe protein-calorie malnutrition Status: Acute Problems: Comment Review of Relevant I have reviewed the following items miguel ángel (where applicable) has been applied. Labs Laboratory Tests Test 07/16/16 13:00 07/17/16 05:15 07/17/16 07:45 07/17/16 15:00 O2 Saturation 94% (92-99) 95% (92-99) 97% (92-99) Arterial Blood pH 7.26 (7.35-7.45) 7.38 (7.35-7.45) 7.22 (7.35-7.45) Arterial Blood pCO2 at Patient Temp 74mmHg (35-46) 52mmHg (35-46) 71mmHg (35-46) Arterial Blood pO2 at Patient Temp 80mmHg (65-108) 80mmHg (65-108) 111mmHg (65-108) Arterial Blood HCO3 32mmol/L (21-28) 30mmol/L (21-28) 28mmol/L (21-28) Arterial Blood Base Excess 4mmol/L (-3-3) 5mmol/L (-3-3) -1mmol/L (-3-3) FiO2 32 30 35 White Blood Count 5.5x10^3/uL (4.0-11.0) Red Blood Count 2.52x10^6/uL (4.30-5.70) Hemoglobin 7.4g/dL (13.0-17.5) Hematocrit 23.5% (39.0-53.0) Mean Corpuscular Volume 93fL (79-100) Mean Corpuscular Hemoglobin 30pg (25-35) Mean Corpuscular Hemoglobin Concent 32g/dL (31-37) Red Cell Distribution Width 16.2% (11.5-14.5) Platelet Count 169x10^3/uL (140-400) Neutrophils (%) (Auto) 63% (31-73) Lymphocytes (%) (Auto) 24% (24-48) Monocytes (%) (Auto) 10% (0-9) Eosinophils (%) (Auto) 3% (0-3) Basophils (%) (Auto) 0% (0-3) Neutrophils # (Auto) 3.4x10^3uL (1.8-7.7) Lymphocytes # (Auto) 1.3x10^3/uL (1.0-4.8) Monocytes # (Auto) 0.6x10^3/uL (0.0-1.1) Eosinophils # (Auto) 0.2x10^3/uL (0.0-0.7) Basophils # (Auto) 0.0x10^3/uL (0.0-0.2) Sodium Level 150mmol/L (136-145) Potassium Level 3.1mmol/L (3.5-5.1) Chloride Level 113mmol/L (98-107) Carbon Dioxide Level 34mmol/L (21-32) Anion Gap 3 (6-14) Blood Urea Nitrogen 22mg/dL (8-26) Creatinine 1.4mg/dL (0.7-1.3) Estimated GFR (Cockcroft-Gault) 48.6 BUN/Creatinine Ratio 16 (6-20) Glucose Level 106mg/dL (70-99) Calcium Level 8.0mg/dL (8.5-10.1) Total Bilirubin 0.5mg/dL (0.2-1.0) Aspartate Amino Transf (AST/SGOT) 23U/L (15-37) Alanine Aminotransferase (ALT/SGPT) 15U/L (16-63) Alkaline Phosphatase 94U/L (46-116) Total Protein 5.4g/dL (6.4-8.2) Albumin 2.0g/dL (3.4-5.0) Albumin/Globulin Ratio 0.6 (1.0-1.7) Test 07/18/16 04:20 Hemoglobin 8.7g/dL (13.0-17.5) Hematocrit 27.2% (39.0-53.0) Mean Corpuscular Hemoglobin Concent 32g/dL (31-37) Sodium Level 150mmol/L (136-145) Potassium Level 4.0mmol/L (3.5-5.1) Chloride Level 112mmol/L (98-107) Carbon Dioxide Level 34mmol/L (21-32) Anion Gap 4 (6-14) Blood Urea Nitrogen 19mg/dL (8-26) Creatinine 1.2mg/dL (0.7-1.3) Estimated GFR (Cockcroft-Gault) 58.1 Glucose Level 169mg/dL (70-99) Calcium Level 8.5mg/dL (8.5-10.1) Laboratory Tests Test 07/17/16 15:00 07/18/16 04:20 O2 Saturation 97% (92-99) Arterial Blood pH 7.22 (7.35-7.45) Arterial Blood pCO2 at Patient Temp 71mmHg (35-46) Arterial Blood pO2 at Patient Temp 111mmHg (65-108) Arterial Blood HCO3 28mmol/L (21-28) Arterial Blood Base Excess -1mmol/L (-3-3) FiO2 35 Hemoglobin 8.7g/dL (13.0-17.5) Hematocrit 27.2% (39.0-53.0) Mean Corpuscular Hemoglobin Concent 32g/dL (31-37) Sodium Level 150mmol/L (136-145) Potassium Level 4.0mmol/L (3.5-5.1) Chloride Level 112mmol/L (98-107) Carbon Dioxide Level 34mmol/L (21-32) Anion Gap 4 (6-14) Blood Urea Nitrogen 19mg/dL (8-26) Creatinine 1.2mg/dL (0.7-1.3) Estimated GFR (Cockcroft-Gault) 58.1 Glucose Level 169mg/dL (70-99) Calcium Level 8.5mg/dL (8.5-10.1) Microbiology 07/14/16 Blood Culture - Preliminary, Resulted NO GROWTH AFTER 4 DAYS 07/15/16 Gram Stain - Final, Complete Medications Current Medications Sodium Chloride (Iv Sodium Chloride 0.9% 1000ml Bag) 2,790 ml @ 697.5 mls/ hr Q4H IV ; Start 07/14/16 at 07:58; Stop 07/14/16 at 08:03; Status DC Vancomycin HCl (Vanco Per Pharmacy) 1 each PRN DAILY PRN MC SEE COMMENTS Last administered on 07/14/16 09:16; Start 07/14/16 at 08:00; Stop 07/14/16 at 13:37 ; Status DC Piperacillin Sod/ Tazobactam Sod (Zosyn Per Pharmacy) 1 each PRN DAILY PRN MC SEE COMMENTS; Start 07/14/16 at 08:00; Stop 07/16/16 at 09:13; Status DC Levofloxacin/ Dextrose 1 each 1 each PRN DAILY PRN MC SEE COMMENTS; Start 07/14 at 08:00; Status Cancel Sodium Chloride 1,000 ml @ 697.5 mls/ hr Q1H27M IV Last administered on 08:23; Start 07/14/16 at 08:03; Stop 07/14/16 at 11:58; Status DC Vancomycin HCl 2 gm/Sodium Chloride 500 ml @ 250 mls/hr 1X ONCE IV Last administered on 07/14/16 08:24; Start 07/14/16 at 09:00; Stop 07/14/16 at 10:59 ; Status DC Levofloxacin/ Dextrose 150 ml @ 100 mls/hr 1X ONCE IV Last administered on 10:04; Start 07/14/16 at 08:30; Stop 07/14/16 at 09:59; Status DC Piperacillin Sod/ Tazobactam Sod 4.5 gm/Sodium Chloride 100 ml @ 200 mls/hr 1X ONCE IV Last administered on 07/14/16 08:23; Start 07/14/16 at 08:30; Stop 07/14/16 at 08:59; Status DC Levofloxacin/ Dextrose (LEVAQUIN 750mg PREMIX) 150 ml @ 100 mls/hr Q24H IV ; Start 07/15/16 at 10:00; Stop 07/15/16 at 10:00; Status DC Ondansetron HCl 4 mg 4 mg PRN Q8HRS PRN IV NAUSEA/VOMITING; Start 07/14/16 at 09:15; Stop 07/14/16 at 13:37; Status DC Sodium Chloride (Iv Sodium Chloride 0.9% 1000ml Bag) 1,000 ml @ 75 mls/hr [id number] IV Last administered on 07/14/16 11:55; Start 07/14/16 at 09:11; Stop 07/14/16 at 13:38; Status DC Acetaminophen (Tylenol) 650 mg PRN Q4HRS PRN PO FEVER; Start 07/14/16 at 09:15 ; Stop 07/14/16 at 13:38; Status DC Albuterol/ Ipratropium 3 ml 3 ml RTQID NEB Last administered on 07/15/16 11:13 ; Start 07/14/16 at 12:00; Stop 07/15/16 at 11:59; Status DC Vancomycin HCl/ Sodium Chloride (Iv Sodium Chloride 0.9% 250ml) 250 ml @ 167 mls/hr Q24H IV Last administered on 07/15/16 08:11; Start 07/15/16 at 08:30; Stop 07/16/16 at 09:11; Status DC Vancomycin HCl 1 each 1 each 1X ONCE MC Last administered on 07/16/16 08:00; Start 07/16/16 at 08:00; Stop 07/16/16 at 08:01; Status DC Piperacillin Sod/ Tazobactam Sod/ Sodium Chloride (Zosyn/Iv Sodium Chloride 0.9 % 100ml) 100 ml @ 200 mls/hr Q6HRS IV Last administered on 07/18/16 06:24; Start 07/14/16 at 18:00 Enoxaparin Sodium (Lovenox 40mg Syringe) 40 mg Q24H SQ Last administered on 12:57; Start 07/14/16 at 12:00 Atorvastatin Calcium (Lipitor) 20 mg HS PO Last administered on 07/17/16 21:56 ; Start 07/14/16 at 21:00 Celecoxib (Celebrex) 200 mg DAILY PO Last administered on 07/18/16 08:35; Start 07/14/16 at 14:00 Lisinopril (Prinivil) 20 mg DAILY PO Last administered on 07/18/16 08:36; Start 07/14/16 at 14:00 Metoprolol Tartrate (Lopressor) 100 mg BID PO Last administered on 07/18/16 08 :36; Start 07/14/16 at 21:00 Pantoprazole Sodium (Protonix) 40 mg DAILYAC PO Last administered on 07/18/16 06:24; Start 07/14/16 at 16:30 Acetaminophen (Tylenol) 325 mg PRN Q6HRS PRN PO MILD PAIN / TEMP Last administered on 07/14/16 15:00; Start 07/14/16 at 13:30 Acetaminophen/ Hydrocodone Bitart (Lortab 5/325) 1 tab PRN Q6HRS PRN PO MODERATE TO SEVERE PAIN; Start 07/14/16 at 13:30 Hydralazine HCl (Apresoline) 10 mg PRN Q4HRS PRN IVP ELEVATED BP, SEE COMMENTS ; Start 07/14/16 at 13:30 Ondansetron HCl (Zofran) 4 mg PRN Q8HRS PRN IV NAUSEA/VOMITING; Start 07/14/16 at 13:30; Stop 07/17/16 at 14:13; Status DC Albuterol Sulfate (Ventolin Neb Soln) 2.5 mg PRN Q4HRS PRN NEB SHORTNESS OF BREATH Last administered on 07/16/16 08:11; Start 07/14/16 at 13:30 Enoxaparin Sodium (Lovenox 40mg Syringe) 40 mg Q24H SQ ; Start 07/14/16 at 14:00 ; Status Cancel Vancomycin HCl 1 each 1 each PRN DAILY PRN MC SEE COMMENTS Last administered on 07/18/16 08:54; Start 07/14/16 at 13:30 Piperacillin Sod/ Tazobactam Sod/ Sodium Chloride (Zosyn/Iv Sodium Chloride 0.9 % 50ml) 50 ml @ 100 mls/hr Q6HRS IV ; Start 07/14/16 at 13:30; Status Cancel Levofloxacin/ Dextrose 1 each 1 each PRN DAILY PRN MC SEE COMMENTS; Start 07/14 at 13:30; Stop 07/16/16 at 14:49; Status DC Sodium Chloride 1,000 ml @ 75 mls/hr [id number] IV Last administered on 22:00; Start 07/14/16 at 13:30; Stop 07/16/16 at 09:55; Status DC Levofloxacin/ Dextrose (LEVAQUIN 750mg PREMIX) 150 ml @ 100 mls/hr Q48H IV Last administered on 07/17/16 10:06; Start 07/15/16 at 10:00; Stop 07/18/16 at 08:56; Status DC Furosemide (Lasix) 40 mg 1X ONCE IVP Last administered on 07/15/16 12:00; Start 07/15/16 at 11:00; Stop 07/15/16 at 11:01; Status DC Zinc Sulfate (Orazinc) 220 mg DAILY PO Last administered on 07/18/16 08:36; Start 07/15/16 at 13:00 Ascorbic Acid (Vitamin C) 500 mg DAILY PO Last administered on 07/18/16 08:35 ; Start 07/15/16 at 13:00 Multivitamins/ Calcium (Thera M Plus) 1 tab DAILY PO Last administered on 08:35; Start 07/15/16 at 13:00 Lidocaine/Sodium Bicarbonate (Buffered Lidocaine 1%) 20 ml STK-MED ONCE IJ ; Start 07/15/16 at 14:38; Stop 07/15/16 at 14:39; Status DC Midazolam HCl (Versed) 2 mg STK-MED ONCE .ROUTE ; Start 07/15/16 at 14:54; Stop 07/15/16 at 14:55; Status DC Fentanyl Citrate (Fentanyl 2ml Vial) 100 mcg STK-MED ONCE .ROUTE ; Start at 14:54; Stop 07/15/16 at 14:55; Status DC Lidocaine/Sodium Bicarbonate 3 ml 3 ml 1X ONCE IJ Last administered on 15:53; Start 07/15/16 at 16:00; Stop 07/15/16 at 16:01; Status DC Vancomycin HCl/ Sodium Chloride (Iv Sodium Chloride 0.9% 500ml Bag) 500 ml @ 250 mls/hr Q24H IV Last administered on 07/18/16 09:46; Start 07/16/16 at 10: 00 Albuterol/ Ipratropium (Duoneb) 3 ml RTQID NEB Last administered on 07/17/16 07:35; Start 07/16/16 at 11:00; Stop 07/17/16 at 10:00; Status DC Albuterol/ Ipratropium (Duoneb) 3 ml Q4HRS NEB Last administered on 07/18/16 08:38; Start 07/17/16 at 12:00 Methylprednisolone Sodium Succinate (Solu-Medrol 125mg Vial) 60 mg Q6HRS IV Last administered on 07/18/16 06:23; Start 07/17/16 at 11:00 Budesonide (Pulmicort) 0.5 mg RTBID NEB Last administered on 07/18/16 08:00; Start 07/17/16 at 12:00 Ondansetron HCl (Zofran) 4 mg PRN Q6HRS PRN IV NAUSEA/VOMITING; Start 07/17/16 at 14:11 Morphine Sulfate 1 mg 1 mg PRN Q2HR PRN IV PAIN; Start 07/17/16 at 14:15 Potassium Chloride 100 ml @ 100 mls/hr Q1H IV Last administered on 07/17/16 22:33; Start 07/17/16 at 16:00; Stop 07/17/16 at 19:59; Status DC Levofloxacin/ Dextrose (LEVAQUIN 750mg PREMIX) 150 ml @ 100 mls/hr Q24H IV ; Start 07/18/16 at 10:00 Active Scripts Active Reported Atorvastatin Calcium 20 Mg Tablet 20 Mg PO HS Omeprazole 20 Mg Capsule. 1 Cap PO DAILY Celebrex (Celecoxib) 200 Mg Capsule 1 Cap PO DAILY Lisinopril-Hctz 20-25 Mg Tab (Lisinopril/Hydrochlorothiazide) 1 Each Tablet 1 Tab PO BID Metoprolol Tartrate 100 Mg Tablet 1 Tab PO BID Vitals/I & O Vital Sign - Last 24 Hours 07/17/16 07/17/16 07/17/16 07/17/16 15:00 15:24 19:45 19:59 Temp 98.3 98.3 98.3 98.3 Pulse 79 89 Resp 20 20 B/P 134/68 131/68 Pulse Ox 99 95 93 95 O2 Delivery breathing treatment BiPAP/CPAP BiPAP/CPAP BiPAP/CPAP 07/17/16 07/17/16 07/17/16 07/17/16 20:00 20:01 21:57 23:02 Pulse 82 B/P 131/68 Pulse Ox 95 96 O2 Delivery Bi-pap BiPAP/CPAP BiPAP/CPAP 07/17/16 07/18/16 07/18/16 07/18/16 23:05 02:34 03:26 07:00 Temp 98.5 98.3 98.3 98.5 98.3 98.3 Pulse 75 70 81 Resp 18 20 20 B/P 139/78 129/74 151/76 Pulse Ox 96 94 91 93 O2 Delivery BiPAP/CPAP BiPAP/CPAP BiPAP/CPAP BiPAP/CPAP 07/18/16 07/18/16 07/18/16 07/18/16 08:12 08:16 08:36 08:36 Pulse 77 74 B/P 151/76 151/76 Pulse Ox 93 93 O2 Delivery BiPAP/CPAP BiPAP/CPAP 07/18/16 10:39 Temp 99.6 99.6 Pulse 78 Resp 20 B/P 133/76 Pulse Ox 93 O2 Delivery Nasal Cannula Intake and Output 07/17/16 07/17/16 07/18/16 15:00 23:00 07:00 Intake Total 400 ml Output Total 150 ml 200 ml 225 ml Balance -150 ml -200 ml 175 ml URSULA GONZALEZ MD Jul 18, 2016 11:45
[2016-07-18] MEDS: ENOXAPARIN 40 MG/0.4 ML DISP.SYRIN. SQ SCH (12:29)
--- NOTE | 2016-07-18 14:27 | PDOC ---
PULMONARY PROGRESS NOTES Subjective Pt on BIPAP Vitals Vital Signs Date Time Temp Pulse Resp B/P Pulse Ox O2 Delivery O2 Flow Rate FiO2 07/18/16 12:02 93 Room Air 3.5 07/18/16 10:39 99.6 78 20 133/76 99.6 General: Alert, No acute distress Lungs: Wheezing (diffuse) Abdomen: Soft Neuro Exam: Alert Extremities: Other (trace edema) Labs Laboratory Tests Test 07/17/16 05:15 07/17/16 07:45 07/17/16 15:00 07/18/16 04:20 White Blood Count 5.5x10^3/uL (4.0-11.0) Red Blood Count 2.52x10^6/uL (4.30-5.70) Hemoglobin 7.4g/dL (13.0-17.5) 8.7g/dL (13.0-17.5) Hematocrit 23.5% (39.0-53.0) 27.2% (39.0-53.0) Mean Corpuscular Volume 93fL (79-100) Mean Corpuscular Hemoglobin 30pg (25-35) Mean Corpuscular Hemoglobin Concent 32g/dL (31-37) 32g/dL (31-37) Red Cell Distribution Width 16.2% (11.5-14.5) Platelet Count 169x10^3/uL (140-400) Neutrophils (%) (Auto) 63% (31-73) Lymphocytes (%) (Auto) 24% (24-48) Monocytes (%) (Auto) 10% (0-9) Eosinophils (%) (Auto) 3% (0-3) Basophils (%) (Auto) 0% (0-3) Neutrophils # (Auto) 3.4x10^3uL (1.8-7.7) Lymphocytes # (Auto) 1.3x10^3/uL (1.0-4.8) Monocytes # (Auto) 0.6x10^3/uL (0.0-1.1) Eosinophils # (Auto) 0.2x10^3/uL (0.0-0.7) Basophils # (Auto) 0.0x10^3/uL (0.0-0.2) Sodium Level 150mmol/L (136-145) 150mmol/L (136-145) Potassium Level 3.1mmol/L (3.5-5.1) 4.0mmol/L (3.5-5.1) Chloride Level 113mmol/L (98-107) 112mmol/L (98-107) Carbon Dioxide Level 34mmol/L (21-32) 34mmol/L (21-32) Anion Gap 3 (6-14) 4 (6-14) Blood Urea Nitrogen 22mg/dL (8-26) 19mg/dL (8-26) Creatinine 1.4mg/dL (0.7-1.3) 1.2mg/dL (0.7-1.3) Estimated GFR (Cockcroft-Gault) 48.6 58.1 BUN/Creatinine Ratio 16 (6-20) Glucose Level 106mg/dL (70-99) 169mg/dL (70-99) Calcium Level 8.0mg/dL (8.5-10.1) 8.5mg/dL (8.5-10.1) Total Bilirubin 0.5mg/dL (0.2-1.0) Aspartate Amino Transf (AST/SGOT) 23U/L (15-37) Alanine Aminotransferase (ALT/SGPT) 15U/L (16-63) Alkaline Phosphatase 94U/L (46-116) Total Protein 5.4g/dL (6.4-8.2) Albumin 2.0g/dL (3.4-5.0) Albumin/Globulin Ratio 0.6 (1.0-1.7) O2 Saturation 95% (92-99) 97% (92-99) Arterial Blood pH 7.38 (7.35-7.45) 7.22 (7.35-7.45) Arterial Blood pCO2 at Patient Temp 52mmHg (35-46) 71mmHg (35-46) Arterial Blood pO2 at Patient Temp 80mmHg (65-108) 111mmHg (65-108) Arterial Blood HCO3 30mmol/L (21-28) 28mmol/L (21-28) Arterial Blood Base Excess 5mmol/L (-3-3) -1mmol/L (-3-3) FiO2 30 35 Laboratory Tests Test 07/17/16 15:00 07/18/16 04:20 O2 Saturation 97% (92-99) Arterial Blood pH 7.22 (7.35-7.45) Arterial Blood pCO2 at Patient Temp 71mmHg (35-46) Arterial Blood pO2 at Patient Temp 111mmHg (65-108) Arterial Blood HCO3 28mmol/L (21-28) Arterial Blood Base Excess -1mmol/L (-3-3) FiO2 35 Hemoglobin 8.7g/dL (13.0-17.5) Hematocrit 27.2% (39.0-53.0) Mean Corpuscular Hemoglobin Concent 32g/dL (31-37) Sodium Level 150mmol/L (136-145) Potassium Level 4.0mmol/L (3.5-5.1) Chloride Level 112mmol/L (98-107) Carbon Dioxide Level 34mmol/L (21-32) Anion Gap 4 (6-14) Blood Urea Nitrogen 19mg/dL (8-26) Creatinine 1.2mg/dL (0.7-1.3) Estimated GFR (Cockcroft-Gault) 58.1 Glucose Level 169mg/dL (70-99) Calcium Level 8.5mg/dL (8.5-10.1) Medications Active Scripts Medications Dose Route/Sig Days Date Category Atorvastatin Calcium 20 Mg Tablet 20 Mg PO HS 06/12/16 Reported Omeprazole 20 Mg Capsule.dr 1 Cap PO DAILY 06/12/16 Reported Celebrex (Celecoxib) 200 Mg Capsule 1 Cap PO DAILY 06/12/16 Reported Lisinopril-Hctz 20-25 Mg Tab (Lisinopril/Hydrochlorothiazide) 1 Each Tablet 1 Tab PO BID 06/12/16 Reported Metoprolol Tartrate 100 Mg Tablet 1 Tab PO BID 06/12/16 Reported Comments CXR 07/16 resolved effusions Impression . 1. Acute hypoxic and hypercapnic respiratory failure secondary to healthcare-associated pneumonia involving the left lung./ pleural effusion 2. Possible underlying chronic obstructive pulmonary disease. 3. Recent hip surgery. 4. Influenza screen negative. 5. Abnormal arterial blood gases consistent with [id number] hypercapnia. 6. Ct chest reviewed/ moderate left effusion/ small right, suspect due to low oncotic pressure Plan . continue BIPAP Prognosis is poor 1. Continue with PRN BiPAP/ He is getting tired/ will try VM 2. Follow ABGs much improved. will repeat today off BIPAP 3. We will continue broad-spectrum antibiotics. 4. Follow blood cultures. 5. s/p left thoracentesis. transudate effusion cytology Pending 6. Treat Bronchospasm aggressively with q 4 hr DuoNebs./ add IV steroids/ Pulmicort/ holding metoprolol ZHENG SINGH MD Jul 18, 2016 14:27
--- NOTE | 2016-07-18 15:32 | PDOC2 ---
PALLIATIVE CARE Palliative Care Note Palliative Care Consult requested by Dr. Hubbard to address goals of care Patient admitted with fever, SOB from [facility]. Recent fx. hip -- receiving rehabilitation. Diagnosis: Acute hypoxic and hypercapnic respiratory failure needing NIPPV, COPD , w. acute bronchitis; moderate left effusion thoracentesis 600cc. 07/15; dehydration, acute vasomotor yesterday, . Hypokalemia Hypernatremia likely sec to poor PO. Precipitous drop hgb/anemia Patient alert orientated. Does not like to wear the BiPap. Wants to be kept comfortable. Does not see benefit of BiPap vs burden. "I'm ready to go" Spoke with patient and daughter Kaylin. Patient lives with daughter. Previous to hip fracture was walking, dressing and feeding himself. 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 continue current aggressive care returning to skilled nursing for rehabilitation vs comfort care. Home vs Home with Hospice. Patient wants to focus on comfort. Daughter and patient will need further discussion. Discussed option of hired caregivers while daughter at work Confirmed Code Status: DNR/DNI Outside the hospital form completed. Plan: DNR/DNI Wants comfort care. Undecided home with hospice vs skilled nursing with hospice. MARYANA DELANEY Jul 18, 2016 15:32
[2016-07-18 15:33] VITALS: BP 140/69
[2016-07-18 19:00] VITALS: BP 152/75
[2016-07-18] MEDS: ATORVASTATIN CALCIUM 20 MG TABLET PO SCH (21:53)
[2016-07-18 23:58] VITALS: BP 120/56
[2016-07-19 03:00] VITALS: BP 118/66
[2016-07-19] MEDS: IPRATRPIUM/ALBUTEROL 0.5/2.5MG 3 ML NEBU. NEB SCH ×6 (03:23→23:40)
[2016-07-19] MEDS: PANTOPRAZOLE 40 MG TABLET. PO SCH (06:16)
[2016-07-19] MEDS: PIPERACILLIN/TAZOBACTAM 4.5 GM in IV NORMAL SALINE 100ML 100 ML IV SCH ×3 (06:17→17:55)
[2016-07-19] MEDS: methylPREDNISolone SOD SUCC PF 125 MG/2 ML VIAL. IV SCH (06:17)
[2016-07-19] MEDS: BUDESONIDE 0.5 MG/2 ML NEBU NEB SCH ×2 (07:54→19:53)
[2016-07-19 07:59] VITALS: BP 113/57
[2016-07-19] MEDS: VANCOMYCIN PER PHARMACY MC PRN (08:12)
--- NOTE | 2016-07-19 08:41 | PDOC ---
PULMONARY PROGRESS NOTES Subjective Pt on BIPAP Vitals Vital Signs Date Time Temp Pulse Resp B/P Pulse Ox O2 Delivery O2 Flow Rate FiO2 07/19/16 07:59 98.4 86 20 113/57 99 Nasal Cannula 98.4 07/19/16 07:56 5.0 General: Alert, No acute distress Lungs: Wheezing (diffuse) Abdomen: Soft Neuro Exam: Alert Extremities: Other (trace edema) Labs Laboratory Tests Test 07/17/16 15:00 07/18/16 04:20 O2 Saturation 97% (92-99) Arterial Blood pH 7.22 (7.35-7.45) Arterial Blood pCO2 at Patient Temp 71mmHg (35-46) Arterial Blood pO2 at Patient Temp 111mmHg (65-108) Arterial Blood HCO3 28mmol/L (21-28) Arterial Blood Base Excess -1mmol/L (-3-3) FiO2 35 Hemoglobin 8.7g/dL (13.0-17.5) Hematocrit 27.2% (39.0-53.0) Mean Corpuscular Hemoglobin Concent 32g/dL (31-37) Sodium Level 150mmol/L (136-145) Potassium Level 4.0mmol/L (3.5-5.1) Chloride Level 112mmol/L (98-107) Carbon Dioxide Level 34mmol/L (21-32) Anion Gap 4 (6-14) Blood Urea Nitrogen 19mg/dL (8-26) Creatinine 1.2mg/dL (0.7-1.3) Estimated GFR (Cockcroft-Gault) 58.1 Glucose Level 169mg/dL (70-99) Calcium Level 8.5mg/dL (8.5-10.1) Medications Active Scripts Medications Dose Route/Sig Days Date Category Atorvastatin Calcium 20 Mg Tablet 20 Mg PO HS 06/12/16 Reported Omeprazole 20 Mg Capsule.dr 1 Cap PO DAILY 06/12/16 Reported Celebrex (Celecoxib) 200 Mg Capsule 1 Cap PO DAILY 06/12/16 Reported Lisinopril-Hctz 20-25 Mg Tab (Lisinopril/Hydrochlorothiazide) 1 Each Tablet 1 Tab PO BID 06/12/16 Reported Metoprolol Tartrate 100 Mg Tablet 1 Tab PO BID 06/12/16 Reported Comments CXR 07/16 resolved effusions Impression . 1. Acute hypoxic and hypercapnic respiratory failure secondary to healthcare-associated pneumonia involving the left lung./ pleural effusion 2. Possible underlying chronic obstructive pulmonary disease. 3. Recent hip surgery. 4. Influenza screen negative. 5. Abnormal arterial blood gases consistent with [id number] hypercapnia. 6. Ct chest reviewed/ moderate left effusion/ small right, suspect due to low oncotic pressure Plan . continue BIPAP Arrangement for hospice Pt DNR ZHENG SINGH MD Jul 19, 2016 08:41
[2016-07-19] MEDS: ASCORBIC ACID 500 MG TABLET PO SCH (08:51)
[2016-07-19] MEDS: ZINC SULFATE 220 MG CAPSULE. PO SCH (08:51)
[2016-07-19] MEDS: MULTIVITAMIN with MINERAL TABLET. PO SCH (08:51)
[2016-07-19] MEDS: LISINOPRIL 20 MG TABLET PO SCH (08:51)
[2016-07-19] MEDS: CELECOXIB 200 MG CAPSULE PO SCH (08:52)
[2016-07-19] MEDS: METOPROLOL TART IMMED RELEASE 50 MG TABLET PO SCH ×2 (08:52→21:00)
[2016-07-19] MEDS ORDERED: DEXTROSE 50% 25 GM / 50ML DISP.SYRIN. IV PRN (09:00)
[2016-07-19] MEDS ORDERED: INSULIN DETEMIR 300 UNITS/3 ML INSULN.PEN. SQ ONE (09:00)
[2016-07-19] MEDS ORDERED: IV DEXTROSE 5% 100 ML IV ONE (09:00)
[2016-07-19] MEDS: VANCOMYCIN 1.5 GM in IV NORMAL SALINE 500ML BAG 500 ML IV SCH (10:00)
[2016-07-19] MEDS ORDERED: MORPHINE SULFATE 20 MG/ML CONC SOLUTION. SL PRN (10:15)
[2016-07-19] MEDS ORDERED: LORAZEPAM INTENSOL 2 MG/ML ORAL.CONC. SL PRN (10:15)
--- NOTE | 2016-07-19 10:16 | PDOC ---
PROGRESS NOTES Chief Complaint Chief Complaint 1. Acute hypoxic and hypercapnic respiratory failure needing NIPPV 2. COPD, w. acute bronchitis 3. Recent hip surgery. hip pain 4. likely chronic hypercapnic failure 5. moderate left effusion 6. dehydration, acute vasomotor yesterday, 7. Hypokalemia 8. Hypernatremia likely sec to poor PO 7. Precipitous drop hgb/anemia 8/ s/p L thoracentesis History of Present Illness History of Present Illness S/p palliative meeting 07/18 Hospice Weak, tired Off bipap today just to get some rest LAns reveiwed O MArt reviewed On solu 60 IV q6 by pulmo ALso on PO antihypertensives Na 150 x 2 days, poor PO BS 160s PLAN: can start D5 water tehn levemir x 1 now - to address hypernatremia SW on case for hospice arranegments Likely need to dec Solu dose or even stop IV antibiotics since hospice in the works Dw RN Vitals Vitals Vital Signs Date Time Temp Pulse Resp B/P Pulse Ox O2 Delivery O2 Flow Rate FiO2 07/19/16 08:52 86 113/57 07/19/16 08:00 96 Nasal Cannula 5.0 07/19/16 07:59 98.4 20 98.4 Physical Exam General: Alert, Cooperative, mild distress Heart: Regular rate, No murmurs Lungs: Wheezing (diffuse) Abdomen: Normal bowel sounds, No tenderness Extremities: No clubbing, No cyanosis Skin: No rashes, No significant lesion Assessment and Plan Assessmemt and Plan Problems Medical Problems: (1) Acute on chronic respiratory failure Status: Acute (2) Congestive heart failure Status: Acute (3) Healthcare-associated pneumonia Status: Acute (4) Normocytic anemia Status: Acute (5) Sepsis Status: Acute (6) Severe protein-calorie malnutrition Status: Acute Problems: Comment Review of Relevant I have reviewed the following items miguel ángel (where applicable) has been applied. Labs Laboratory Tests Test 07/17/16 15:00 07/18/16 04:20 O2 Saturation 97% (92-99) Arterial Blood pH 7.22 (7.35-7.45) Arterial Blood pCO2 at Patient Temp 71mmHg (35-46) Arterial Blood pO2 at Patient Temp 111mmHg (65-108) Arterial Blood HCO3 28mmol/L (21-28) Arterial Blood Base Excess -1mmol/L (-3-3) FiO2 35 Hemoglobin 8.7g/dL (13.0-17.5) Hematocrit 27.2% (39.0-53.0) Mean Corpuscular Hemoglobin Concent 32g/dL (31-37) Sodium Level 150mmol/L (136-145) Potassium Level 4.0mmol/L (3.5-5.1) Chloride Level 112mmol/L (98-107) Carbon Dioxide Level 34mmol/L (21-32) Anion Gap 4 (6-14) Blood Urea Nitrogen 19mg/dL (8-26) Creatinine 1.2mg/dL (0.7-1.3) Estimated GFR (Cockcroft-Gault) 58.1 Glucose Level 169mg/dL (70-99) Calcium Level 8.5mg/dL (8.5-10.1) Microbiology 07/14/16 Blood Culture - Preliminary, Resulted NO GROWTH AFTER 4 DAYS 07/15/16 Gram Stain - Final, Complete Medications Current Medications Sodium Chloride (Iv Sodium Chloride 0.9% 1000ml Bag) 2,790 ml @ 697.5 mls/ hr Q4H IV ; Start 07/14/16 at 07:58; Stop 07/14/16 at 08:03; Status DC Vancomycin HCl (Vanco Per Pharmacy) 1 each PRN DAILY PRN MC SEE COMMENTS Last administered on 07/14/16 09:16; Start 07/14/16 at 08:00; Stop 07/14/16 at 13:37 ; Status DC Piperacillin Sod/ Tazobactam Sod (Zosyn Per Pharmacy) 1 each PRN DAILY PRN MC SEE COMMENTS; Start 07/14/16 at 08:00; Stop 07/16/16 at 09:13; Status DC Levofloxacin/ Dextrose 1 each 1 each PRN DAILY PRN MC SEE COMMENTS; Start 07/14 at 08:00; Status Cancel Sodium Chloride 1,000 ml @ 697.5 mls/ hr Q1H27M IV Last administered on 08:23; Start 07/14/16 at 08:03; Stop 07/14/16 at 11:58; Status DC Vancomycin HCl 2 gm/Sodium Chloride 500 ml @ 250 mls/hr 1X ONCE IV Last administered on 07/14/16 08:24; Start 07/14/16 at 09:00; Stop 07/14/16 at 10:59 ; Status DC Levofloxacin/ Dextrose 150 ml @ 100 mls/hr 1X ONCE IV Last administered on 10:04; Start 07/14/16 at 08:30; Stop 07/14/16 at 09:59; Status DC Piperacillin Sod/ Tazobactam Sod 4.5 gm/Sodium Chloride 100 ml @ 200 mls/hr 1X ONCE IV Last administered on 07/14/16 08:23; Start 07/14/16 at 08:30; Stop 07/14/16 at 08:59; Status DC Levofloxacin/ Dextrose (LEVAQUIN 750mg PREMIX) 150 ml @ 100 mls/hr Q24H IV ; Start 07/15/16 at 10:00; Stop 07/15/16 at 10:00; Status DC Ondansetron HCl 4 mg 4 mg PRN Q8HRS PRN IV NAUSEA/VOMITING; Start 07/14/16 at 09:15; Stop 07/14/16 at 13:37; Status DC Sodium Chloride (Iv Sodium Chloride 0.9% 1000ml Bag) 1,000 ml @ 75 mls/hr [id number] IV Last administered on 07/14/16 11:55; Start 07/14/16 at 09:11; Stop 07/14/16 at 13:38; Status DC Acetaminophen (Tylenol) 650 mg PRN Q4HRS PRN PO FEVER; Start 07/14/16 at 09:15 ; Stop 07/14/16 at 13:38; Status DC Albuterol/ Ipratropium 3 ml 3 ml RTQID NEB Last administered on 07/15/16 11:13 ; Start 07/14/16 at 12:00; Stop 07/15/16 at 11:59; Status DC Vancomycin HCl/ Sodium Chloride (Iv Sodium Chloride 0.9% 250ml) 250 ml @ 167 mls/hr Q24H IV Last administered on 07/15/16 08:11; Start 07/15/16 at 08:30; Stop 07/16/16 at 09:11; Status DC Vancomycin HCl 1 each 1 each 1X ONCE MC Last administered on 07/16/16 08:00; Start 07/16/16 at 08:00; Stop 07/16/16 at 08:01; Status DC Piperacillin Sod/ Tazobactam Sod/ Sodium Chloride (Zosyn/Iv Sodium Chloride 0.9 % 100ml) 100 ml @ 200 mls/hr Q6HRS IV Last administered on 07/19/16 06:17; Start 07/14/16 at 18:00 Enoxaparin Sodium (Lovenox 40mg Syringe) 40 mg Q24H SQ Last administered on 12:29; Start 07/14/16 at 12:00 Atorvastatin Calcium (Lipitor) 20 mg HS PO Last administered on 07/18/16 21:53 ; Start 07/14/16 at 21:00 Celecoxib (Celebrex) 200 mg DAILY PO Last administered on 07/19/16 08:52; Start 07/14/16 at 14:00 Lisinopril (Prinivil) 20 mg DAILY PO Last administered on 07/19/16 08:51; Start 07/14/16 at 14:00 Metoprolol Tartrate (Lopressor) 100 mg BID PO Last administered on 07/19/16 08 :52; Start 07/14/16 at 21:00 Pantoprazole Sodium (Protonix) 40 mg DAILYAC PO Last administered on 07/19/16 06:16; Start 07/14/16 at 16:30 Acetaminophen (Tylenol) 325 mg PRN Q6HRS PRN PO MILD PAIN / TEMP Last administered on 07/14/16 15:00; Start 07/14/16 at 13:30 Acetaminophen/ Hydrocodone Bitart (Lortab 5/325) 1 tab PRN Q6HRS PRN PO MODERATE TO SEVERE PAIN; Start 07/14/16 at 13:30 Hydralazine HCl (Apresoline) 10 mg PRN Q4HRS PRN IVP ELEVATED BP, SEE COMMENTS ; Start 07/14/16 at 13:30 Ondansetron HCl (Zofran) 4 mg PRN Q8HRS PRN IV NAUSEA/VOMITING; Start 07/14/16 at 13:30; Stop 07/17/16 at 14:13; Status DC Albuterol Sulfate (Ventolin Neb Soln) 2.5 mg PRN Q4HRS PRN NEB SHORTNESS OF BREATH Last administered on 07/16/16 08:11; Start 07/14/16 at 13:30 Enoxaparin Sodium (Lovenox 40mg Syringe) 40 mg Q24H SQ ; Start 07/14/16 at 14:00 ; Status Cancel Vancomycin HCl 1 each 1 each PRN DAILY PRN MC SEE COMMENTS Last administered on 07/19/16 08:12; Start 07/14/16 at 13:30 Piperacillin Sod/ Tazobactam Sod/ Sodium Chloride (Zosyn/Iv Sodium Chloride 0.9 % 50ml) 50 ml @ 100 mls/hr Q6HRS IV ; Start 07/14/16 at 13:30; Status Cancel Levofloxacin/ Dextrose 1 each 1 each PRN DAILY PRN MC SEE COMMENTS; Start 07/14 at 13:30; Stop 07/16/16 at 14:49; Status DC Sodium Chloride 1,000 ml @ 75 mls/hr [id number] IV Last administered on 22:00; Start 07/14/16 at 13:30; Stop 07/16/16 at 09:55; Status DC Levofloxacin/ Dextrose (LEVAQUIN 750mg PREMIX) 150 ml @ 100 mls/hr Q48H IV Last administered on 07/17/16 10:06; Start 07/15/16 at 10:00; Stop 07/18/16 at 08:56; Status DC Furosemide (Lasix) 40 mg 1X ONCE IVP Last administered on 07/15/16 12:00; Start 07/15/16 at 11:00; Stop 07/15/16 at 11:01; Status DC Zinc Sulfate (Orazinc) 220 mg DAILY PO Last administered on 07/19/16 08:51; Start 07/15/16 at 13:00 Ascorbic Acid (Vitamin C) 500 mg DAILY PO Last administered on 07/19/16 08:51 ; Start 07/15/16 at 13:00 Multivitamins/ Calcium (Thera M Plus) 1 tab DAILY PO Last administered on 08:51; Start 07/15/16 at 13:00 Lidocaine/Sodium Bicarbonate (Buffered Lidocaine 1%) 20 ml STK-MED ONCE IJ ; Start 07/15/16 at 14:38; Stop 07/15/16 at 14:39; Status DC Midazolam HCl (Versed) 2 mg STK-MED ONCE .ROUTE ; Start 07/15/16 at 14:54; Stop 07/15/16 at 14:55; Status DC Fentanyl Citrate (Fentanyl 2ml Vial) 100 mcg STK-MED ONCE .ROUTE ; Start at 14:54; Stop 07/15/16 at 14:55; Status DC Lidocaine/Sodium Bicarbonate 3 ml 3 ml 1X ONCE IJ Last administered on 15:53; Start 07/15/16 at 16:00; Stop 07/15/16 at 16:01; Status DC Vancomycin HCl/ Sodium Chloride (Iv Sodium Chloride 0.9% 500ml Bag) 500 ml @ 250 mls/hr Q24H IV Last administered on 07/18/16 09:46; Start 07/16/16 at 10: 00 Albuterol/ Ipratropium (Duoneb) 3 ml RTQID NEB Last administered on 07/17/16 07:35; Start 07/16/16 at 11:00; Stop 07/17/16 at 10:00; Status DC Albuterol/ Ipratropium (Duoneb) 3 ml Q4HRS NEB Last administered on 07/19/16 07:54; Start 07/17/16 at 12:00 Methylprednisolone Sodium Succinate (Solu-Medrol 125mg Vial) 60 mg Q6HRS IV Last administered on 07/19/16 06:17; Start 07/17/16 at 11:00 Budesonide (Pulmicort) 0.5 mg RTBID NEB Last administered on 07/19/16 07:54; Start 07/17/16 at 12:00 Ondansetron HCl (Zofran) 4 mg PRN Q6HRS PRN IV NAUSEA/VOMITING; Start 07/17/16 at 14:11 Morphine Sulfate 1 mg 1 mg PRN Q2HR PRN IV PAIN; Start 07/17/16 at 14:15 Potassium Chloride 100 ml @ 100 mls/hr Q1H IV Last administered on 07/17/16 22:33; Start 07/17/16 at 16:00; Stop 07/17/16 at 19:59; Status DC Levofloxacin/ Dextrose 150 ml @ 100 mls/hr Q24H IV Last administered on 14:11; Start 07/18/16 at 10:00 Dextrose 100 ml @ 200 mls/hr 1X ONCE IV ; Start 07/19/16 at 09:00; Stop at 09:29; Status Cancel Insulin Detemir (Levemir) 15 units ONCE ONCE SQ ; Start 07/19/16 at 09:00; Stop 07/19/16 at 09:01; Status DC Dextrose 12.5 gm PRN Q15MIN PRN IV SEE COMMENTS; Start 07/19/16 at 09:00 Active Scripts Active Reported Atorvastatin Calcium 20 Mg Tablet 20 Mg PO HS Omeprazole 20 Mg Capsule. 1 Cap PO DAILY Celebrex (Celecoxib) 200 Mg Capsule 1 Cap PO DAILY Lisinopril-Hctz 20-25 Mg Tab (Lisinopril/Hydrochlorothiazide) 1 Each Tablet 1 Tab PO BID Metoprolol Tartrate 100 Mg Tablet 1 Tab PO BID Vitals/I & O Vital Sign - Last 24 Hours 07/18/16 07/18/16 07/18/16 07/18/16 10:39 12:02 15:06 15:33 Temp 99.6 97.8 99.6 97.8 Pulse 78 83 Resp 20 20 B/P 133/76 140/69 Pulse Ox 93 93 90 O2 Delivery Nasal Cannula Room Air Nasal Cannula Nasal Cannula O2 Flow Rate 3.5 4.0 07/18/16 07/18/16 07/18/16 07/18/16 16:19 19:00 19:55 21:54 Temp 97.8 97.8 Pulse 56 88 Resp 18 B/P 152/75 152/75 Pulse Ox 94 O2 Delivery Room Air Nasal Cannula Bi-pap O2 Flow Rate 3.5 3.0 07/18/16 07/18/16 07/18/16 07/18/16 22:36 22:39 23:43 23:58 Temp 98.2 98.2 Pulse 93 Resp 18 B/P 120/56 Pulse Ox 96 96 97 91 O2 Delivery Nasal Cannula Nasal Cannula Nasal Cannula O2 Flow Rate 3.5 3.5 3.5 3.0 07/19/16 07/19/16 07/19/16 07/19/16 03:00 03:23 07:56 07:59 Temp 98.4 98.4 98.4 98.4 Pulse 81 86 Resp 20 20 B/P 118/66 113/57 Pulse Ox 95 97 96 99 O2 Delivery Nasal Cannula Nasal Cannula Nasal Cannula Nasal Cannula O2 Flow Rate 3.0 3.5 5.0 07/19/16 07/19/16 07/19/16 08:00 08:51 08:52 Pulse 86 86 B/P 113/57 113/57 Pulse Ox 96 O2 Delivery Nasal Cannula O2 Flow Rate 5.0 Intake and Output 07/18/16 07/18/16 07/19/16 15:00 23:00 07:00 Intake Total 600 ml 550 ml 250 ml Output Total 425 ml Balance 600 ml 125 ml 250 ml URSULA GONZALEZ MD Jul 19, 2016 10:16
[2016-07-19 11:04] VITALS: BP 120/61
[2016-07-19] MEDS: ENOXAPARIN 40 MG/0.4 ML DISP.SYRIN. SQ SCH (12:00)
[2016-07-19 15:16] VITALS: BP 119/63
[2016-07-19] MEDS: methylPREDNISolone SOD SUCC PF 40 MG/ML VIAL. IV SCH ×2 (15:20→17:55)
--- NOTE | 2016-07-19 18:30 | PDOC2 ---
PALLIATIVE CARE Palliative Care Note Palliative Care Patient resting. Very agitated last night--pulling IV's out Spoke with Kaylin daughter. Understands he is declining. Would like to follow his wishes of comfort care. Options discussed. Does not feel she can handle him at home since she has no close family here. Patient lives with Kaylin. Discussed need for symptom management when BiPap off and medications/fluids discontinued. Options of Hospice House discussed. Kaylin would like [facility] Sean LEON faxed information Candice from [facility] will meet with Kaylin at 11am. Outside the Hospital DNR/DNI signed. Plan: Hospice House Evaluation and transfer if accepted. DNR/DNI MARYANA DELANEY Jul 19, 2016 18:30
[2016-07-19 19:50] VITALS: BP 125/65
[2016-07-19 22:32] VITALS: BP 113/56
[2016-07-20] MEDS: methylPREDNISolone SOD SUCC PF 40 MG/ML VIAL. IV SCH ×3 (00:54→12:00)
[2016-07-20] MEDS: PIPERACILLIN/TAZOBACTAM 4.5 GM in IV NORMAL SALINE 100ML 100 ML IV SCH ×3 (00:54→12:00)
[2016-07-20] MEDS: IPRATRPIUM/ALBUTEROL 0.5/2.5MG 3 ML NEBU. NEB SCH ×4 (03:15→16:00)
[2016-07-20 03:35] VITALS: BP 112/59
[2016-07-20] MEDS: PANTOPRAZOLE 40 MG TABLET. PO SCH (06:21)
[2016-07-20] MEDS: BUDESONIDE 0.5 MG/2 ML NEBU NEB SCH (07:33)
[2016-07-20 07:55] VITALS: BP 123/68
[2016-07-20] MEDS: VANCOMYCIN PER PHARMACY MC PRN (08:35)
[2016-07-20] MEDS: CELECOXIB 200 MG CAPSULE PO SCH (09:00)
[2016-07-20] MEDS: LISINOPRIL 20 MG TABLET PO SCH (09:00)
[2016-07-20] MEDS: METOPROLOL TART IMMED RELEASE 50 MG TABLET PO SCH (09:00)
[2016-07-20] MEDS: ZINC SULFATE 220 MG CAPSULE. PO SCH (09:00)
[2016-07-20] MEDS: VANCOMYCIN 1.5 GM in IV NORMAL SALINE 500ML BAG 500 ML IV SCH (10:00)
[2016-07-20 10:53] VITALS: BP 136/67
--- NOTE | 2016-07-20 11:17 | PDOC ---
PROGRESS NOTES Chief Complaint Chief Complaint 1. Acute hypoxic and hypercapnic respiratory failure needing NIPPV 2. COPD, w. acute bronchitis 3. Recent hip surgery. hip pain 4. likely chronic hypercapnic failure 5. moderate left effusion 6. dehydration, acute vasomotor yesterday, 7. Hypokalemia 8. Hypernatremia likely sec to poor PO 7. Precipitous drop hgb/anemia 8/ s/p L thoracentesis History of Present Illness History of Present Illness for hospice company to meet with them today 11 AM Remains same, weak, Poor PO Na 150 yesterday Hgb 8 On and off bipap DNR PLAN: Await hospice meet Might be able to dc today after hospice meet DNR Meds have been adjusted to only stick to comfort meds Will dc iV antibiotics upon dc Vitals Vitals Vital Signs Date Time Temp Pulse Resp B/P Pulse Ox O2 Delivery O2 Flow Rate FiO2 07/20/16 11:09 92 Nasal Cannula 4.0 07/20/16 10:53 98.2 93 20 136/67 98.2 Physical Exam General: Alert, Cooperative, mild distress Heart: Regular rate, No murmurs Lungs: Wheezing (diffuse) Abdomen: Normal bowel sounds, No tenderness Extremities: No clubbing, No cyanosis Skin: No rashes, No significant lesion Review of Systems Review of Systems cant be obtained weak Assessment and Plan Assessmemt and Plan Problems Medical Problems: (1) Acute on chronic respiratory failure Status: Acute (2) Congestive heart failure Status: Acute (3) Healthcare-associated pneumonia Status: Acute (4) Normocytic anemia Status: Acute (5) Sepsis Status: Acute (6) Severe protein-calorie malnutrition Status: Acute Problems: Comment Review of Relevant I have reviewed the following items miguel ángel (where applicable) has been applied. Labs Microbiology 07/14/16 Blood Culture - Final, Complete NO GROWTH AFTER 5 DAYS 07/15/16 Gram Stain - Final, Complete Medications Current Medications Sodium Chloride (Iv Sodium Chloride 0.9% 1000ml Bag) 2,790 ml @ 697.5 mls/ hr Q4H IV ; Start 07/14/16 at 07:58; Stop 07/14/16 at 08:03; Status DC Vancomycin HCl (Vanco Per Pharmacy) 1 each PRN DAILY PRN MC SEE COMMENTS Last administered on 07/14/16t 09:16; Start 07/14/16 at 08:00; Stop 07/14/16 at 13:37 ; Status DC Piperacillin Sod/ Tazobactam Sod (Zosyn Per Pharmacy) 1 each PRN DAILY PRN MC SEE COMMENTS; Start 07/14/16 at 08:00; Stop 07/16/16 at 09:13; Status DC Levofloxacin/ Dextrose 1 each 1 each PRN DAILY PRN MC SEE COMMENTS; Start 07/14 at 08:00; Status Cancel Sodium Chloride 1,000 ml @ 697.5 mls/ hr Q1H27M IV Last administered on 08:23; Start 07/14/16 at 08:03; Stop 07/14/16 at 11:58; Status DC Vancomycin HCl 2 gm/Sodium Chloride 500 ml @ 250 mls/hr 1X ONCE IV Last administered on 07/14/16 08:24; Start 07/14/16 at 09:00; Stop 07/14/16 at 10:59 ; Status DC Levofloxacin/ Dextrose 150 ml @ 100 mls/hr 1X ONCE IV Last administered on 10:04; Start 07/14/16 at 08:30; Stop 07/14/16 at 09:59; Status DC Piperacillin Sod/ Tazobactam Sod 4.5 gm/Sodium Chloride 100 ml @ 200 mls/hr 1X ONCE IV Last administered on 07/14/16 08:23; Start 07/14/16 at 08:30; Stop 07/14/16 at 08:59; Status DC Levofloxacin/ Dextrose (LEVAQUIN 750mg PREMIX) 150 ml @ 100 mls/hr Q24H IV ; Start 07/15/16 at 10:00; Stop 07/15/16 at 10:00; Status DC Ondansetron HCl 4 mg 4 mg PRN Q8HRS PRN IV NAUSEA/VOMITING; Start 07/14/16 at 09:15; Stop 07/14/16 at 13:37; Status DC Sodium Chloride (Iv Sodium Chloride 0.9% 1000ml Bag) 1,000 ml @ 75 mls/hr [id number] IV Last administered on 07/14/16 11:55; Start 07/14/16 at 09:11; Stop 07/14/16 at 13:38; Status DC Acetaminophen (Tylenol) 650 mg PRN Q4HRS PRN PO FEVER; Start 07/14/16 at 09:15 ; Stop 07/14/16 at 13:38; Status DC Albuterol/ Ipratropium 3 ml 3 ml RTQID NEB Last administered on 07/15/16 11:13 ; Start 07/14/16 at 12:00; Stop 07/15/16 at 11:59; Status DC Vancomycin HCl/ Sodium Chloride (Iv Sodium Chloride 0.9% 250ml) 250 ml @ 167 mls/hr Q24H IV Last administered on 07/15/16 08:11; Start 07/15/16 at 08:30; Stop 07/16/16 at 09:11; Status DC Vancomycin HCl 1 each 1 each 1X ONCE MC Last administered on 07/16/16 08:00; Start 07/16/16 at 08:00; Stop 07/16/16 at 08:01; Status DC Piperacillin Sod/ Tazobactam Sod/ Sodium Chloride (Zosyn/Iv Sodium Chloride 0.9 % 100ml) 100 ml @ 200 mls/hr Q6HRS IV Last administered on 07/20/16 06:21; Start 07/14/16 at 18:00 Enoxaparin Sodium (Lovenox 40mg Syringe) 40 mg Q24H SQ Last administered on 12:29; Start 07/14/16 at 12:00 Atorvastatin Calcium (Lipitor) 20 mg HS PO Last administered on 07/18/16 21:53 ; Start 07/14/16 at 21:00; Stop 07/19/16 at 10:48; Status DC Celecoxib (Celebrex) 200 mg DAILY PO Last administered on 07/19/16 08:52; Start 07/14/16 at 14:00 Lisinopril (Prinivil) 20 mg DAILY PO Last administered on 07/19/16 08:51; Start 07/14/16 at 14:00 Metoprolol Tartrate (Lopressor) 100 mg BID PO Last administered on 07/19/16 08 :52; Start 07/14/16 at 21:00 Pantoprazole Sodium (Protonix) 40 mg DAILYAC PO Last administered on 07/19/16 06:16; Start 07/14/16 at 16:30 Acetaminophen (Tylenol) 325 mg PRN Q6HRS PRN PO MILD PAIN / TEMP Last administered on 07/14/16 15:00; Start 07/14/16 at 13:30 Acetaminophen/ Hydrocodone Bitart (Lortab 5/325) 1 tab PRN Q6HRS PRN PO MODERATE TO SEVERE PAIN; Start 07/14/16 at 13:30 Hydralazine HCl (Apresoline) 10 mg PRN Q4HRS PRN IVP ELEVATED BP, SEE COMMENTS ; Start 07/14/16 at 13:30 Ondansetron HCl (Zofran) 4 mg PRN Q8HRS PRN IV NAUSEA/VOMITING; Start 07/14/16 at 13:30; Stop 07/17/16 at 14:13; Status DC Albuterol Sulfate (Ventolin Neb Soln) 2.5 mg PRN Q4HRS PRN NEB SHORTNESS OF BREATH Last administered on 07/16/16 08:11; Start 07/14/16 at 13:30 Enoxaparin Sodium (Lovenox 40mg Syringe) 40 mg Q24H SQ ; Start 07/14/16 at 14:00 ; Status Cancel Vancomycin HCl 1 each 1 each PRN DAILY PRN MC SEE COMMENTS Last administered on 07/20/16 08:35; Start 07/14/16 at 13:30 Piperacillin Sod/ Tazobactam Sod/ Sodium Chloride (Zosyn/Iv Sodium Chloride 0.9 % 50ml) 50 ml @ 100 mls/hr Q6HRS IV ; Start 07/14/16 at 13:30; Status Cancel Levofloxacin/ Dextrose 1 each 1 each PRN DAILY PRN MC SEE COMMENTS; Start 07/14 at 13:30; Stop 07/16/16 at 14:49; Status DC Sodium Chloride 1,000 ml @ 75 mls/hr [id number] IV Last administered on 22:00; Start 07/14/16 at 13:30; Stop 07/16/16 at 09:55; Status DC Levofloxacin/ Dextrose (LEVAQUIN 750mg PREMIX) 150 ml @ 100 mls/hr Q48H IV Last administered on 07/17/16 10:06; Start 07/15/16 at 10:00; Stop 07/18/16 at 08:56; Status DC Furosemide (Lasix) 40 mg 1X ONCE IVP Last administered on 07/15/16 12:00; Start 07/15/16 at 11:00; Stop 07/15/16 at 11:01; Status DC Zinc Sulfate (Orazinc) 220 mg DAILY PO Last administered on 07/19/16 08:51; Start 07/15/16 at 13:00 Ascorbic Acid (Vitamin C) 500 mg DAILY PO Last administered on 07/19/16 08:51 ; Start 07/15/16 at 13:00; Stop 07/19/16 at 10:48; Status DC Multivitamins/ Calcium (Thera M Plus) 1 tab DAILY PO Last administered on 08:51; Start 07/15/16 at 13:00; Stop 07/19/16 at 10:48; Status DC Lidocaine/Sodium Bicarbonate (Buffered Lidocaine 1%) 20 ml STK-MED ONCE IJ ; Start 07/15/16 at 14:38; Stop 07/15/16 at 14:39; Status DC Midazolam HCl (Versed) 2 mg STK-MED ONCE .ROUTE ; Start 07/15/16 at 14:54; Stop 07/15/16 at 14:55; Status DC Fentanyl Citrate (Fentanyl 2ml Vial) 100 mcg STK-MED ONCE .ROUTE ; Start at 14:54; Stop 07/15/16 at 14:55; Status DC Lidocaine/Sodium Bicarbonate 3 ml 3 ml 1X ONCE IJ Last administered on 15:53; Start 07/15/16 at 16:00; Stop 07/15/16 at 16:01; Status DC Vancomycin HCl/ Sodium Chloride (Iv Sodium Chloride 0.9% 500ml Bag) 500 ml @ 250 mls/hr Q24H IV Last administered on 07/19/16 10:00; Start 07/16/16 at 10: 00 Albuterol/ Ipratropium (Duoneb) 3 ml RTQID NEB Last administered on 07/17/16 07:35; Start 07/16/16 at 11:00; Stop 07/17/16 at 10:00; Status DC Albuterol/ Ipratropium (Duoneb) 3 ml Q4HRS NEB Last administered on 07/20/16 11 :09; Start 07/17/16 at 12:00 Methylprednisolone Sodium Succinate (Solu-Medrol 125mg Vial) 60 mg Q6HRS IV Last administered on 07/19/16 06:17; Start 07/17/16 at 11:00; Stop 07/19/16 at 10:48; Status DC Budesonide (Pulmicort) 0.5 mg RTBID NEB Last administered on 07/20/16 07:33; Start 07/17/16 at 12:00 Ondansetron HCl (Zofran) 4 mg PRN Q6HRS PRN IV NAUSEA/VOMITING; Start 07/17/16 at 14:11 Morphine Sulfate 1 mg 1 mg PRN Q2HR PRN IV PAIN; Start 07/17/16 at 14:15 Potassium Chloride 100 ml @ 100 mls/hr Q1H IV Last administered on 07/17/16 22:33; Start 07/17/16 at 16:00; Stop 07/17/16 at 19:59; Status DC Levofloxacin/ Dextrose 150 ml @ 100 mls/hr Q24H IV Last administered on 14:40; Start 07/18/16 at 10:00 Dextrose 100 ml @ 200 mls/hr 1X ONCE IV ; Start 07/19/16 at 09:00; Stop at 09:29; Status Cancel Insulin Detemir (Levemir) 15 units ONCE ONCE SQ ; Start 07/19/16 at 09:00; Stop 07/19/16 at 09:01; Status DC Dextrose 12.5 gm PRN Q15MIN PRN IV SEE COMMENTS; Start 07/19/16 at 09:00 Morphine Sulfate (Roxanol Conc) 20 mg PRN Q3HRS PRN SL PAIN; Start 07/19/16 at 10:15 Lorazepam (Ativan Intensol) 2 mg PRN Q6HRS PRN SL ANXIETY / AGITATION; Start at 10:15 Methylprednisolone Sodium Succinate (Solu-Medrol 40mg Vial) 40 mg Q6HRS IV Last administered on 07/20/16 06:20; Start 07/19/16 at 12:00 Active Scripts Active Reported Atorvastatin Calcium 20 Mg Tablet 20 Mg PO HS Omeprazole 20 Mg Capsule.dr 1 Cap PO DAILY Celebrex (Celecoxib) 200 Mg Capsule 1 Cap PO DAILY Lisinopril-Hctz 20-25 Mg Tab (Lisinopril/Hydrochlorothiazide) 1 Each Tablet 1 Tab PO BID Metoprolol Tartrate 100 Mg Tablet 1 Tab PO BID Vitals/I & O Vital Sign - Last 24 Hours 07/19/16 07/19/16 07/19/16 07/19/16 11:33 15:16 15:37 19:50 Temp 97.9 97.9 Pulse 82 Resp 17 B/P 119/63 Pulse Ox 100 O2 Delivery Nasal Cannula Nasal Cannula Nasal Cannula Bi-pap O2 Flow Rate 5.0 5.0 5.0 07/19/16 07/19/16 07/19/16 07/19/16 19:50 19:51 22:32 23:41 Temp 98.0 98.3 98.0 98.3 Pulse 81 75 Resp 18 20 B/P 125/65 113/56 Pulse Ox 97 100 90 99 O2 Delivery Nasal Cannula Nasal Cannula Nasal Cannula Nasal Cannula O2 Flow Rate 5.0 5.0 5.0 4.0 07/20/16 07/20/16 07/20/16 07/20/16 03:15 03:35 07:35 07:55 Temp 97.5 97.8 97.5 97.8 Pulse 78 85 Resp 20 24 B/P 112/59 123/68 Pulse Ox 96 97 91 93 O2 Delivery Nasal Cannula Nasal Cannula Nasal Cannula Nasal Cannula O2 Flow Rate 3.0 5.0 3.0 07/20/16 07/20/16 07/20/16 08:00 10:53 11:09 Temp 98.2 98.2 Pulse 93 Resp 20 B/P 136/67 Pulse Ox 91 92 O2 Delivery Bi-pap Nasal Cannula Nasal Cannula O2 Flow Rate 3.0 4.0 Intake and Output 07/19/16 07/19/16 07/20/16 15:00 23:00 07:00 Intake Total 120 ml 0 ml Output Total 0 ml Balance 120 ml 0 ml URSULA GONZALEZ MD Jul 20, 2016 11:17
[2016-07-20] MEDS: ENOXAPARIN 40 MG/0.4 ML DISP.SYRIN. SQ SCH (12:00)
--- NOTE | 2016-07-20 14:32 | PDOC3 ---
Discharge Summary Visit Information Date of Admission: Jul 14, 2016 Date of Discharge: Jul 20, 2016 Admitting Diagnosis Comment: Acute hypoxic and hypercapnic respiratory failure needing NIPPV 2. COPD, w. acute bronchitis 3. Recent hip surgery. hip pain 4. likely chronic hypercapnic failure 5. moderate left effusion 6. dehydration, acute vasomotor yesterday, 7. Hypokalemia 8. Hypernatremia likely sec to poor PO 7. Precipitous drop hgb/anemia 8/ s/p L thoracentesis Final Diagnosis Problems Medical Problems: (1) Acute on chronic respiratory failure Status: Acute (2) Congestive heart failure Status: Acute (3) Healthcare-associated pneumonia Status: Acute (4) Normocytic anemia Status: Acute (5) Sepsis Status: Acute (6) Severe protein-calorie malnutrition Status: Acute Brief Hospital Course Allergies Allergies Coded Allergies Type Severity Reaction Last Updated Verified No Known Drug Allergies 06/16/16 No Vital Signs Vital Signs Date Time Temp Pulse Resp B/P Pulse Ox O2 Delivery O2 Flow Rate FiO2 07/20/16 11:09 92 Nasal Cannula 4.0 07/20/16 10:53 98.2 93 20 136/67 98.2 Brief Hospital Course Mr. Thomas is a 80 old male admitted for respi failure needing BIPAP with pulmo on board. Unfortunately no resolve, needed thoracentesis, etc, poor pO went hypernatremic, Very weak, cant do PT< Accepted at hospice. Dw family, RN and case mx 2 notes today -m pls see my progress note Discharge Information Condition at Discharge: Comment (HOSPICE) Disposition/Orders: D/C to Home w/ Hospice Scheduled Atorvastatin Calcium (Atorvastatin Calcium) 20 MG PO HS (Reported) Celecoxib (Celebrex) 1 CAP PO DAILY (Reported) Lisinopril/Hydrochlorothiazide (Lisinopril-Hctz 20-25 Mg Tab) 1 TAB PO BID ( Reported) Metoprolol Tartrate (Metoprolol Tartrate) 1 TAB PO BID (Reported) Omeprazole (Omeprazole) 1 CAP PO DAILY (Reported) URSULA GONZALEZ MD Jul 20, 2016 14:31
--- NOTE | 2016-07-20 14:49 | PATHOLOGY ---
CYTOPATHOLOGY REPORT CLINICAL HISTORY: Left pleural effusion. SPECIMEN(S) RECEIVED: A.Pleural fluid. Left FINAL DIAGNOSIS: Left pleural fluid, ThinPrep and cell block: - Reactive mesothelial cells identified within a background of predominantly chronic inflammatory cells. (JPM:; d/t: 07/20/16) PATHOLOGIST: Juan Phoenix M.D. REPORT ELECTRONICALLY SIGNED BY: Juan Phoenix M.D. DATE/TIME: 07/20/2016 14:49 GROSS PATHOLOGY: A. Pleural fluid. Left: The specimen is submitted fixed, labeled "Bobby Rosas". Received by the Cytology Department is 50 mL of clear yellow fluid. One ThinPrep slide and a cell block were prepared. (clt 07.18.2016) SKATESMAN(S): WILLIMA Padron(ASCP) INITIAL CPT CODE(S): A; 48056, 73236 Professional services performed by [facility] [place] [address] Technical services performed by [facility] at [address] [place] [address], [address], [place] [address]. PATIENT: BOBBY ROSAS /AGE: 4 1935 (Age: 80) SEX: M PATIENT #: [id number] ALT CASE #: SPECIMEN COLLECTION DATE: 07/15/2016 SPECIMEN RECEIVED DATE: 07/18/2016 [facility] [address] [place] [address], [address] [place] [address] PHONE: [phone] DIRECTOR: Som Skinner M.D. * * * END OF REPORT * * *
--- NOTE | 2016-07-20 15:32 | PDOC ---
PULMONARY PROGRESS NOTES Subjective Pt on n/c now Vitals Vital Signs Date Time Temp Pulse Resp B/P Pulse Ox O2 Delivery O2 Flow Rate FiO2 07/20/16 11:09 92 Nasal Cannula 4.0 07/20/16 10:53 98.2 93 20 136/67 98.2 General: Alert, No acute distress Lungs: Clear Cardiovascular: S1, S2 Abdomen: Soft Neuro Exam: Alert Extremities: Other (edema) Medications Active Scripts Medications Dose Route/Sig Days Date Category Atorvastatin Calcium 20 Mg Tablet 20 Mg PO HS 06/12/16 Reported Omeprazole 20 Mg Capsule.dr 1 Cap PO DAILY 06/12/16 Reported Celebrex (Celecoxib) 200 Mg Capsule 1 Cap PO DAILY 06/12/16 Reported Lisinopril-Hctz 20-25 Mg Tab (Lisinopril/Hydrochlorothiazide) 1 Each Tablet 1 Tab PO BID 06/12/16 Reported Metoprolol Tartrate 100 Mg Tablet 1 Tab PO BID 06/12/16 Reported Comments CXR 07/16 resolved effusions Impression . 1. Acute hypoxic and hypercapnic respiratory failure secondary to healthcare-associated pneumonia involving the left lung./ pleural effusion 2. Possible underlying chronic obstructive pulmonary disease. 3. Recent hip surgery. 4. Influenza screen negative. 5. Abnormal arterial blood gases consistent with [id number] hypercapnia. 6. Ct chest reviewed/ moderate left effusion/ small right, suspect due to low oncotic pressure Plan . continue BIPAP PRN, o2 now with n/c Arrangement for hospice Pt DNR ZHENG SINGH MD Jul 20, 2016 15:32
== END 2016-07-20 12:40 | disposition hospice, inpatient (51) | DRG 871 ==
LOC: ER 07:49 → 2 SOUTH 08:02
PROVIDERS: ADMIT Internal Medicine; ATTEND Internal Medicine
PROC: 0W9B3ZX Drainage of Left Pleural Cavity, Percutaneous Approach, Diagnostic (ICD-10-PCS; principal; 2016-07-16)
PROC: 5A09457 Assistance with Respiratory Ventilation, 24-96 Consecutive Hours, Continuous Positive Airway Pressure (ICD-10-PCS; 2016-07-18)
DX: A41.9 Sepsis, unspecified organism (principal); E43 Unspecified severe protein-calorie malnutrition; J18.9 Pneumonia, unspecified organism; J96.21 Acute and chronic respiratory failure with hypoxia; J96.22 Acute and chronic respiratory failure with hypercapnia; E87.0 Hyperosmolality and hypernatremia; E87.2 Acidosis; I13.0 Hypertensive heart and chronic kidney disease with heart failure and stage 1 through stage 4 chronic kidney disease, or unspecified chronic kidney disease; J44.0 Chronic obstructive pulmonary disease with (acute) lower respiratory infection; D64.9 Anemia, unspecified; M19.90 Unspecified osteoarthritis, unspecified site; E78.00 Pure hypercholesterolemia, unspecified; E78.5 Hyperlipidemia, unspecified; M47.9 Spondylosis, unspecified; J20.9 Acute bronchitis, unspecified; E86.0 Dehydration; E87.6 Hypokalemia; I50.9 Heart failure, unspecified; K21.9 Gastro-esophageal reflux disease without esophagitis; N18.9 Chronic kidney disease, unspecified; Y95 Nosocomial condition; Z66 Do not resuscitate; Z96.641 Presence of right artificial hip joint; Z82.49 Family history of ischemic heart disease and other diseases of the circulatory system; Z68.36 Body mass index [BMI] 36.0-36.9, adult; Z79.899 Other long term (current) drug therapy; Z98.890 Other specified postprocedural states; Z79.82 Long term (current) use of aspirin; Z90.49 Acquired absence of other specified parts of digestive tract
CPT/HCPCS: 32555; 36415; 36600; 71010; 71250; 80048; 80053; 80202; 82553; 82805; 83605; 83615; 84145; 84157; 85014; 85018; 85027; 85610; 85730; 87040; 87071; 87075; 87205; 87804; 88112; 88305; 89050; 93005; 94250; 94640; 94660; 94760; A4215; C1729; C1892; C1894; J1650; J1815; J1940; J1956; J2543; J2920; J2930; J3370; J3480; J7030; J7040; J7050; J7620; 99285-25